=== PATIENT | male | born 1940 | race Caucasian/White ===

== ENCOUNTER 2016-11-19 14:47 | Outpatient (RCR) | payer MEDICARE, OTHER ==
--- OUTSIDE RECORDS SUMMARY | 2016-08-27 14:17 | XMS REPORT | Continuity of Care Document ---
Author Author [facility] Organization [facility] Address Unknown Phone Unavailable Care Team Providers Care Postmaster Name Role Phone LAILA CULLEN MD PCP Insurance Providers Payer Name Policy Number Subscriber Name Relationship [employer] [id number] Pedro Luis Armas 16 Self / Same As Patient [facility] Insurance [id number] Pedro Luis Armas 16 Self / Same As Patient Problems No known problems or medical conditions. Medications No known medications. Social History Social History Problem Response Recorded Date/Time Recent Foreign Travel No 10/26/2014 10:55am Hospital Discharge Instructions No hospital discharge instructions. Plan of Care No plan of care. Functional Status No functional status results. Allergies, Adverse Reactions, Alerts No known allergies. Immunizations No immunization records. Vital Signs No known vital signs results. Results No known relevant diagnostic tests, laboratory data and/or discharge summary. Procedures No known history of procedures. Encounters Encounter Location Date/Time Discharged Recurring [facility] 12/24/14 9:12am
[2016-08-27 14:45] LABS: BASOPHILS % (AUTO) 1 % (0-10); EOSINOPHILS # (AUTO) 0.4 10^3/uL (0.0-0.3); EOSINOPHILS % (AUTO) 6 % (0-10); LYMPHOCYTES # (AUTO) 0.7 X 10^3 (1.0-4.0); LYMPHOCYTES % (AUTO) 11 % (12-44); MEAN CORPUSCULAR HEMOGLOBIN 33 PG (25-34); MEAN CORPUSCULAR HGB CONC 34 G/DL (32-36); MEAN CORPUSCULAR VOLUME 96 FL (80-99); MEAN PLATELET VOLUME 8.4 FL (7.4-10.4); MONOCYTES # (AUTO) 0.7 X 10^3 (0.0-1.0); MONOCYTES % (AUTO) 11 % (0-12); NEUTROPHILS # (AUTO) 4.5 X 10^3 (1.8-7.8); NEUTROPHILS % (AUTO) 71 % (42-75); PLATELET COUNT 250 10^3/uL (130-400); RED BLOOD COUNT 3.53 10^6/uL (4.35-5.85); RED CELL DISTRIBUTION WIDTH 13.2 % (10.0-14.5); WHITE BLOOD COUNT 6.4 10^3/uL (4.3-11.0)
[2016-08-27 15:27] LABS: ALBUMIN 3.7 G/DL (3.2-4.5); BILIRUBIN,TOTAL 0.2 MG/DL (0.1-1.0); CALCIUM 9.2 MG/DL (8.5-10.1); CREATININE SERUM 2.32 MG/DL (0.60-1.30); POTASSIUM 4.1 MMOL/L (3.6-5.0); TOTAL PROTEIN 6.6 G/DL (6.4-8.2)
[~2016-11-19 14:47] MED LIST: DENOSUMAB 120 MG/1.7 ML (XGEVA) SQ SCH; LEUPROLIDE 22.5 MG SYRIN(ELIGARD) SQ SCH
[2016-11-19 15:02] LABS: BASOPHILS % (AUTO) 0 % (0-10); EOSINOPHILS # (AUTO) 0.4 10^3/uL (0.0-0.3); EOSINOPHILS % (AUTO) 6 % (0-10); LYMPHOCYTES # (AUTO) 0.8 X 10^3 (1.0-4.0); LYMPHOCYTES % (AUTO) 12 % (12-44); MEAN CORPUSCULAR HEMOGLOBIN 32 PG (25-34); MEAN CORPUSCULAR HGB CONC 34 G/DL (32-36); MEAN CORPUSCULAR VOLUME 93 FL (80-99); MEAN PLATELET VOLUME 8.4 FL (7.4-10.4); MONOCYTES # (AUTO) 0.6 X 10^3 (0.0-1.0); MONOCYTES % (AUTO) 9 % (0-12); NEUTROPHILS # (AUTO) 4.8 X 10^3 (1.8-7.8); NEUTROPHILS % (AUTO) 73 % (42-75); PLATELET COUNT 262 10^3/uL (130-400); RED BLOOD COUNT 3.74 10^6/uL (4.35-5.85); RED CELL DISTRIBUTION WIDTH 13.4 % (10.0-14.5); WHITE BLOOD COUNT 6.6 10^3/uL (4.3-11.0)
[2016-11-19 15:25] LABS: ALBUMIN 3.8 G/DL (3.2-4.5); BILIRUBIN,TOTAL 0.3 MG/DL (0.1-1.0); CALCIUM 9.5 MG/DL (8.5-10.1); CREATININE SERUM 2.24 MG/DL (0.60-1.30); POTASSIUM 4.6 MMOL/L (3.6-5.0); TOTAL PROTEIN 6.9 G/DL (6.4-8.2)
== END 2016-11-25 | disposition home or self-care (01) ==
LOC: ONC 14:47
PROVIDERS: ATTEND Internal Medicine Hematology & Oncology
DX: C61 Malignant neoplasm of prostate (principal); C79.51 Secondary malignant neoplasm of bone; I25.10 Atherosclerotic heart disease of native coronary artery without angina pectoris; E11.22 Type 2 diabetes mellitus with diabetic chronic kidney disease; N18.3 Chronic kidney disease, stage 3 (moderate); Z95.1 Presence of aortocoronary bypass graft; Z87.891 Personal history of nicotine dependence; Z79.899 Other long term (current) drug therapy
CPT/HCPCS: 36415; 80053; 84153; 85025; 96372; 96402; 99213; 99214

== ENCOUNTER 2017-02-17 14:40 | Outpatient (RCR) | payer MEDICARE, OTHER ==
[2017-02-17 14:58] LABS: BASOPHILS % (AUTO) 0 % (0-10); EOSINOPHILS # (AUTO) 0.2 10^3/uL (0.0-0.3); EOSINOPHILS % (AUTO) 4 % (0-10); LYMPHOCYTES # (AUTO) 0.7 X 10^3 (1.0-4.0); LYMPHOCYTES % (AUTO) 13 % (12-44); MEAN CORPUSCULAR HEMOGLOBIN 33 PG (25-34); MEAN CORPUSCULAR HGB CONC 34 G/DL (32-36); MEAN CORPUSCULAR VOLUME 98 FL (80-99); MEAN PLATELET VOLUME 9.1 FL (7.4-10.4); MONOCYTES # (AUTO) 0.4 X 10^3 (0.0-1.0); MONOCYTES % (AUTO) 7 % (0-12); NEUTROPHILS # (AUTO) 4.2 X 10^3 (1.8-7.8); NEUTROPHILS % (AUTO) 76 % (42-75); PLATELET COUNT 201 10^3/uL (130-400); RED BLOOD COUNT 3.57 10^6/uL (4.35-5.85); WHITE BLOOD COUNT 5.6 10^3/uL (4.3-11.0)
[2017-02-17 15:25] LABS: ALANINE AMINOTRANSFERASE < 6 U/L (0-55); ALBUMIN 3.4 G/DL (3.2-4.5); ANION GAP 7 MMOL/L (5-14); ASPARTATE AMINO TRANSFERASE 15 U/L (5-34); BILIRUBIN,TOTAL 0.4 MG/DL (0.1-1.0); BLOOD UREA NITROGEN 38 MG/DL (7-18); BUN/CREATININE RATIO 16; CALCIUM 8.5 MG/DL (8.5-10.1); CARBON DIOXIDE 23 MMOL/L (21-32); CHLORIDE 113 MMOL/L (98-107); CREATININE SERUM 2.32 MG/DL (0.60-1.30); GFR ESTIMATED 27; GLUCOSE 127 MG/DL (70-105); POTASSIUM 4.6 MMOL/L (3.6-5.0); SODIUM 143 MMOL/L (135-145); TOTAL PROTEIN 6.2 G/DL (6.4-8.2)
[2017-02-17] MEDS ORDERED: LEUPROLIDE 22.5 MG SYRIN(ELIGARD) SQ SCH (16:00)
== END 2017-05-18 | disposition home or self-care (01) ==
LOC: ONC 14:40
PROVIDERS: ATTEND Internal Medicine Hematology & Oncology
DX: C61 Malignant neoplasm of prostate (principal); C79.51 Secondary malignant neoplasm of bone; I25.10 Atherosclerotic heart disease of native coronary artery without angina pectoris; E11.22 Type 2 diabetes mellitus with diabetic chronic kidney disease; N18.3 Chronic kidney disease, stage 3 (moderate); Z95.1 Presence of aortocoronary bypass graft; Z87.891 Personal history of nicotine dependence; Z79.899 Other long term (current) drug therapy
CPT/HCPCS: 36415; 80053; 84153; 85025; 96402; 99213

== ENCOUNTER 2017-05-25 09:28 | Outpatient (RCR) | payer MEDICARE, OTHER ==
[2017-05-24 14:09] LABS: BASOPHILS % (AUTO) 0 % (0-10); EOSINOPHILS # (AUTO) 0.5 10^3/uL (0.0-0.3); EOSINOPHILS % (AUTO) 5 % (0-10); LYMPHOCYTES # (AUTO) 0.9 X 10^3 (1.0-4.0); LYMPHOCYTES % (AUTO) 10 % (12-44); MEAN CORPUSCULAR HEMOGLOBIN 31 PG (25-34); MEAN CORPUSCULAR HGB CONC 32 G/DL (32-36); MEAN CORPUSCULAR VOLUME 97 FL (80-99); MONOCYTES # (AUTO) 0.8 X 10^3 (0.0-1.0); MONOCYTES % (AUTO) 9 % (0-12); NEUTROPHILS # (AUTO) 6.8 X 10^3 (1.8-7.8); NEUTROPHILS % (AUTO) 75 % (42-75); PLATELET COUNT 454 10^3/uL (130-400); RED BLOOD COUNT 2.46 10^6/uL (4.35-5.85); RED CELL DISTRIBUTION WIDTH 13.1 % (10.0-14.5)
[2017-05-24 15:01] LABS: ALBUMIN 2.8 GM/DL (3.2-4.5); BILIRUBIN,TOTAL 0.2 MG/DL (0.1-1.0); CALCIUM 8.8 MG/DL (8.5-10.1); CREATININE SERUM 2.77 MG/DL (0.60-1.30); POTASSIUM 4.3 MMOL/L (3.6-5.0); TOTAL PROTEIN 6.7 GM/DL (6.4-8.2)
[2017-05-25] MEDS ORDERED: NS IV 500 ML (CANCER CENTER) 500 ML ONE (09:40)
[2017-05-25] MEDS ORDERED: ACETAMINOPHEN 500 MG TAB (TYLENOL) CANCER CTR ONE (09:41)
== END 2017-07-17 | disposition home or self-care (01) ==
LOC: ONC 09:28
PROVIDERS: ATTEND Internal Medicine Hematology & Oncology
DX: C61 Malignant neoplasm of prostate (principal); C79.51 Secondary malignant neoplasm of bone; I25.10 Atherosclerotic heart disease of native coronary artery without angina pectoris; E11.22 Type 2 diabetes mellitus with diabetic chronic kidney disease; N18.3 Chronic kidney disease, stage 3 (moderate); Z95.1 Presence of aortocoronary bypass graft; Z87.891 Personal history of nicotine dependence; Z79.899 Other long term (current) drug therapy
CPT/HCPCS: 36415; 36430; 80053; 84153; 85025; 86850; 86900; 86901; 86920; 96402

== ENCOUNTER 2017-10-25 13:39 | Outpatient (RCR) | payer MEDICARE, OTHER ==
[2017-08-02 14:33] LABS: BASOPHILS % (AUTO) 1 % (0-10); EOSINOPHILS # (AUTO) 0.4 10^3/uL (0.0-0.3); EOSINOPHILS % (AUTO) 8 % (0-10); HEMATOCRIT 31 % (40-54); HEMOGLOBIN 10.1 G/DL (13.3-17.7); LYMPHOCYTES # (AUTO) 0.8 X 10^3 (1.0-4.0); LYMPHOCYTES % (AUTO) 16 % (12-44); MEAN CORPUSCULAR HEMOGLOBIN 32 PG (25-34); MEAN CORPUSCULAR HGB CONC 33 G/DL (32-36); MEAN CORPUSCULAR VOLUME 97 FL (80-99); MEAN PLATELET VOLUME 9.2 FL (7.4-10.4); MONOCYTES # (AUTO) 0.5 X 10^3 (0.0-1.0); MONOCYTES % (AUTO) 9 % (0-12); NEUTROPHILS # (AUTO) 3.5 X 10^3 (1.8-7.8); NEUTROPHILS % (AUTO) 67 % (42-75); PLATELET COUNT 212 10^3/uL (130-400); RED BLOOD COUNT 3.16 10^6/uL (4.35-5.85); RED CELL DISTRIBUTION WIDTH 15.5 % (10.0-14.5); WHITE BLOOD COUNT 5.2 10^3/uL (4.3-11.0)
[2017-08-02 15:03] LABS: ALBUMIN 3.7 GM/DL (3.2-4.5); BILIRUBIN,TOTAL 0.4 MG/DL (0.1-1.0); CALCIUM 9.9 MG/DL (8.5-10.1); CREATININE SERUM 3.58 MG/DL (0.60-1.30); POTASSIUM 4.2 MMOL/L (3.6-5.0); TOTAL PROTEIN 7.2 GM/DL (6.4-8.2)
[2017-10-25 14:04] LABS: HEMATOCRIT 35 % (40-54); HEMOGLOBIN 11.1 G/DL (13.3-17.7); MEAN CORPUSCULAR HEMOGLOBIN 33 PG (25-34); MEAN CORPUSCULAR HGB CONC 32 G/DL (32-36); MEAN CORPUSCULAR VOLUME 104 FL (80-99); PLATELET COUNT 202 10^3/uL (130-400); RED BLOOD COUNT 3.32 10^6/uL (4.35-5.85); RED CELL DISTRIBUTION WIDTH 13.7 % (10.0-14.5); WHITE BLOOD COUNT 6.4 10^3/uL (4.3-11.0)
[2017-10-25 14:05] LABS: BASOPHILS % (AUTO) 1 % (0-10); EOSINOPHILS # (AUTO) 0.5 10^3/uL (0.0-0.3); EOSINOPHILS % (AUTO) 8 % (0-10); LYMPHOCYTES # (AUTO) 0.8 X 10^3 (1.0-4.0); LYMPHOCYTES % (AUTO) 13 % (12-44); MEAN PLATELET VOLUME 9.5 FL (7.4-10.4); MONOCYTES # (AUTO) 0.7 X 10^3 (0.0-1.0); MONOCYTES % (AUTO) 11 % (0-12); NEUTROPHILS # (AUTO) 4.3 X 10^3 (1.8-7.8); NEUTROPHILS % (AUTO) 68 % (42-75)
[2017-10-25 14:15] LABS: ALBUMIN 3.7 GM/DL (3.2-4.5); BILIRUBIN,TOTAL 0.4 MG/DL (0.1-1.0); CALCIUM 9.3 MG/DL (8.5-10.1); CREATININE SERUM 2.77 MG/DL (0.60-1.30); POTASSIUM 4.6 MMOL/L (3.6-5.0); TOTAL PROTEIN 6.9 GM/DL (6.4-8.2)
== END 2017-10-31 | disposition home or self-care (01) ==
LOC: ONC 13:39
PROVIDERS: ATTEND Internal Medicine Hematology & Oncology
DX: C61 Malignant neoplasm of prostate (principal); C79.51 Secondary malignant neoplasm of bone; I25.10 Atherosclerotic heart disease of native coronary artery without angina pectoris; E11.22 Type 2 diabetes mellitus with diabetic chronic kidney disease; N18.3 Chronic kidney disease, stage 3 (moderate); Z95.1 Presence of aortocoronary bypass graft; Z87.891 Personal history of nicotine dependence; Z79.899 Other long term (current) drug therapy
CPT/HCPCS: 36415; 80053; 84153; 85025; 96372; 96402

== ENCOUNTER → 2018-02-03 | Outpatient (CLI) | payer MEDICARE, OTHER ==
[~2018-02-03] MED LIST changes: +CATHETER FLUSH 10 ML SYR IV PRN; -DENOSUMAB 120 MG/1.7 ML (XGEVA) SQ SCH; -LEUPROLIDE 22.5 MG SYRIN(ELIGARD) SQ SCH
--- NOTE | 2018-02-03 10:49 | Diagnostic Imaging Report ---
PROCEDURE: CT abdomen and pelvis without contrast. TECHNIQUE: Multiple contiguous axial images were obtained through the abdomen and pelvis without the use of intravenous contrast. 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 COMPARISON: Comparison is made with prior CT from 08/27/2015. FINDINGS: Imaging to the lung bases does show a noncalcified nodule in the left lower lobe approximately 10 mm in size, stable when compared with prior exam. Small low-density left lobe of liver appears stable and likely cysts. No other liver mass is identified. Gallbladder does contain small stones. The pancreas and spleen are unremarkable. No adrenal mass is detected. Bilateral renal calcifications are again noted. Aorta is heavily calcified but nonaneurysmal. The small and large bowel loops are normal caliber. There is no ascites. The bladder is unremarkable. There are fiducial markers in the prostate. There appear to be bilateral fat-containing inguinal hernias. Multiple sclerotic lesions in the spine as well as bilateral ribs and pelvis are again noted consistent with osseous metastatic disease. IMPRESSION: Stable CT of the abdomen and pelvis when compared with prior exam from 08/27/2015. Cholelithiasis is again noted. There is skeletal metastases again noted. No new abnormality is seen. Dictated by: Dictated on workstation # [id number]
--- NOTE | 2018-02-03 15:45 | Diagnostic Imaging Report ---
Indication: Prostate cancer. Technique: The patient received 25.8 mCi intravenous technetium 99 MDP, after 3 hours whole body planar performed. Study compared to 08/15/2015 and correlated with an abdominal pelvic CT of the same date. Findings: Sternomanubrial uptake unchanged. Foci of abnormal accumulation of radiopharmacy in the predominately mid to lower thoracic spine and multilevel lumbar spine scintigraphically unchanged from prior and correlate with areas of sclerosis present on CT. Many of the sclerotic lesions evident on CT are not scintigraphically appreciable and may be chronic and healed. There are multiple bilateral rib lesions which are less conspicuous than on prior. Left-sided occipital or craniofacial uptake present on prior resolved. Impression: Resolution of craniofacial uptake, improvements in rib findings, spinal and sternomanubrial disease not substantially changed and we acknowledge that the sclerotic changes are much more conspicuous on CT with many of the lesions showing no perceptible uptake, likely chronic and healed. There has been no adverse development from prior. Dictated by: Dictated on workstation # [id number]
== END ==
LOC: RAD 09:53
PROVIDERS: ATTEND Internal Medicine Hematology & Oncology
DX: C61 Malignant neoplasm of prostate (principal); C79.51 Secondary malignant neoplasm of bone; K80.20 Calculus of gallbladder without cholecystitis without obstruction
CPT/HCPCS: 74176; 78306

== ENCOUNTER 2018-04-14 13:58 | Outpatient (RCR) | payer MEDICARE, OTHER ==
[2018-01-26 09:12] LABS: BASOPHILS % (AUTO) 1 % (0-10); EOSINOPHILS # (AUTO) 0.4 10^3/uL (0.0-0.3); EOSINOPHILS % (AUTO) 9 % (0-10); HEMATOCRIT 32 % (40-54); HEMOGLOBIN 11.1 G/DL (13.3-17.7); LYMPHOCYTES # (AUTO) 0.9 X 10^3 (1.0-4.0); LYMPHOCYTES % (AUTO) 20 % (12-44); MEAN CORPUSCULAR HEMOGLOBIN 34 PG (25-34); MEAN CORPUSCULAR HGB CONC 35 G/DL (32-36); MEAN CORPUSCULAR VOLUME 98 FL (80-99); MEAN PLATELET VOLUME 8.9 FL (7.4-10.4); MONOCYTES # (AUTO) 0.4 X 10^3 (0.0-1.0); MONOCYTES % (AUTO) 10 % (0-12); NEUTROPHILS # (AUTO) 2.6 X 10^3 (1.8-7.8); NEUTROPHILS % (AUTO) 60 % (42-75); PLATELET COUNT 211 10^3/uL (130-400); RED BLOOD COUNT 3.25 10^6/uL (4.35-5.85); RED CELL DISTRIBUTION WIDTH 12.5 % (10.0-14.5); WHITE BLOOD COUNT 4.3 10^3/uL (4.3-11.0)
[2018-01-26 09:39] LABS: ALBUMIN 3.9 GM/DL (3.2-4.5); BILIRUBIN,TOTAL 0.5 MG/DL (0.1-1.0); CALCIUM 8.9 MG/DL (8.5-10.1); CREATININE SERUM 3.07 MG/DL (0.60-1.30); POTASSIUM 4.8 MMOL/L (3.6-5.0); TOTAL PROTEIN 6.8 GM/DL (6.4-8.2)
[2018-03-07 09:16] LABS: BASOPHILS % (AUTO) 0 % (0-10); EOSINOPHILS # (AUTO) 0.3 10^3/uL (0.0-0.3); EOSINOPHILS % (AUTO) 6 % (0-10); HEMATOCRIT 31 % (40-54); HEMOGLOBIN 10.7 G/DL (13.3-17.7); LYMPHOCYTES # (AUTO) 0.7 X 10^3 (1.0-4.0); LYMPHOCYTES % (AUTO) 13 % (12-44); MEAN CORPUSCULAR HEMOGLOBIN 34 PG (25-34); MEAN CORPUSCULAR HGB CONC 35 G/DL (32-36); MEAN CORPUSCULAR VOLUME 97 FL (80-99); MEAN PLATELET VOLUME 9.2 FL (7.4-10.4); MONOCYTES # (AUTO) 0.5 X 10^3 (0.0-1.0); MONOCYTES % (AUTO) 10 % (0-12); NEUTROPHILS # (AUTO) 3.6 X 10^3 (1.8-7.8); NEUTROPHILS % (AUTO) 71 % (42-75); PLATELET COUNT 228 10^3/uL (130-400); RED BLOOD COUNT 3.16 10^6/uL (4.35-5.85); RED CELL DISTRIBUTION WIDTH 12.8 % (10.0-14.5)
[2018-03-07 09:34] LABS: BILIRUBIN,TOTAL 0.4 MG/DL (0.1-1.0); CALCIUM 8.5 MG/DL (8.5-10.1); CREATININE SERUM 3.17 MG/DL (0.60-1.30); POTASSIUM 4.3 MMOL/L (3.6-5.0); TOTAL PROTEIN 6.8 GM/DL (6.4-8.2)
[2018-04-11 08:51] LABS: BASOPHILS % (AUTO) 1 % (0-10); EOSINOPHILS # (AUTO) 0.3 10^3/uL (0.0-0.3); EOSINOPHILS % (AUTO) 7 % (0-10); HEMATOCRIT 31 % (40-54); HEMOGLOBIN 10.7 G/DL (13.3-17.7); LYMPHOCYTES # (AUTO) 0.8 X 10^3 (1.0-4.0); LYMPHOCYTES % (AUTO) 16 % (12-44); MEAN CORPUSCULAR HEMOGLOBIN 34 PG (25-34); MEAN CORPUSCULAR HGB CONC 35 G/DL (32-36); MEAN CORPUSCULAR VOLUME 97 FL (80-99); MEAN PLATELET VOLUME 9.8 FL (7.4-10.4); MONOCYTES # (AUTO) 0.5 X 10^3 (0.0-1.0); MONOCYTES % (AUTO) 10 % (0-12); NEUTROPHILS # (AUTO) 3.3 X 10^3 (1.8-7.8); NEUTROPHILS % (AUTO) 68 % (42-75); PLATELET COUNT 220 10^3/uL (130-400); RED BLOOD COUNT 3.19 10^6/uL (4.35-5.85); RED CELL DISTRIBUTION WIDTH 13.5 % (10.0-14.5); WHITE BLOOD COUNT 4.9 10^3/uL (4.3-11.0)
[2018-04-11 09:11] LABS: ALBUMIN 3.7 GM/DL (3.2-4.5); BILIRUBIN,TOTAL 0.4 MG/DL (0.1-1.0); CALCIUM 8.9 MG/DL (8.5-10.1); CREATININE SERUM 2.69 MG/DL (0.60-1.30); POTASSIUM 5.1 MMOL/L (3.6-5.0); TOTAL PROTEIN 6.5 GM/DL (6.4-8.2)
[~2018-04-14 13:58] MED LIST changes: -CATHETER FLUSH 10 ML SYR IV PRN; +DENOSUMAB 120 MG/1.7 ML (XGEVA) SQ SCH; +LEUPROLIDE 22.5 MG SYRIN(ELIGARD) SQ SCH
== END 2018-04-26 | disposition home or self-care (01) ==
LOC: ONC 13:58
PROVIDERS: ATTEND Internal Medicine Hematology & Oncology
DX: C61 Malignant neoplasm of prostate (principal); C79.51 Secondary malignant neoplasm of bone; D64.9 Anemia, unspecified; I25.10 Atherosclerotic heart disease of native coronary artery without angina pectoris; E11.22 Type 2 diabetes mellitus with diabetic chronic kidney disease; N18.3 Chronic kidney disease, stage 3 (moderate); Z95.1 Presence of aortocoronary bypass graft; Z87.891 Personal history of nicotine dependence; Z79.899 Other long term (current) drug therapy
CPT/HCPCS: 36415; 80053; 82728; 84153; 85025; 96372; 96402; 99213

== ENCOUNTER 2018-07-07 13:15 | Outpatient (RCR) | payer MEDICARE, OTHER ==
[2018-07-05 09:34] LABS: BASOPHILS % (AUTO) 1 % (0-10); EOSINOPHILS # (AUTO) 0.3 10^3/uL (0.0-0.3); EOSINOPHILS % (AUTO) 7 % (0-10); HEMATOCRIT 32 % (40-54); HEMOGLOBIN 11.3 G/DL (13.3-17.7); LYMPHOCYTES # (AUTO) 0.7 X 10^3 (1.0-4.0); LYMPHOCYTES % (AUTO) 14 % (12-44); MEAN CORPUSCULAR HEMOGLOBIN 34 PG (25-34); MEAN CORPUSCULAR HGB CONC 35 G/DL (32-36); MEAN CORPUSCULAR VOLUME 96 FL (80-99); MEAN PLATELET VOLUME 9.3 FL (7.4-10.4); MONOCYTES # (AUTO) 0.4 X 10^3 (0.0-1.0); MONOCYTES % (AUTO) 9 % (0-12); NEUTROPHILS # (AUTO) 3.3 X 10^3 (1.8-7.8); NEUTROPHILS % (AUTO) 69 % (42-75); PLATELET COUNT 229 10^3/uL (130-400); RED BLOOD COUNT 3.37 10^6/uL (4.35-5.85); RED CELL DISTRIBUTION WIDTH 13.2 % (10.0-14.5); WHITE BLOOD COUNT 4.8 10^3/uL (4.3-11.0)
[2018-07-05 09:54] LABS: BILIRUBIN,TOTAL 0.4 MG/DL (0.1-1.0); CALCIUM 9.6 MG/DL (8.5-10.1); CREATININE SERUM 3.19 MG/DL (0.60-1.30)
[~2018-07-07 13:15] MED LIST changes: +CEFU500T63 PO; +HYDR-4226 PO; +ONDA8TAB9 PO
[2018-07-27 14:00] LABS: BASOPHILS % (AUTO) 0 % (0-10); EOSINOPHILS # (AUTO) 0.3 10^3/uL (0.0-0.3); EOSINOPHILS % (AUTO) 5 % (0-10); HEMATOCRIT 31 % (40-54); HEMOGLOBIN 10.7 G/DL (13.3-17.7); LYMPHOCYTES # (AUTO) 0.9 X 10^3 (1.0-4.0); LYMPHOCYTES % (AUTO) 15 % (12-44); MEAN CORPUSCULAR HEMOGLOBIN 33 PG (25-34); MEAN CORPUSCULAR HGB CONC 35 G/DL (32-36); MEAN CORPUSCULAR VOLUME 94 FL (80-99); MEAN PLATELET VOLUME 8.9 FL (7.4-10.4); MONOCYTES # (AUTO) 0.5 X 10^3 (0.0-1.0); MONOCYTES % (AUTO) 9 % (0-12); NEUTROPHILS % (AUTO) 71 % (42-75); PLATELET COUNT 216 10^3/uL (130-400); RED BLOOD COUNT 3.24 10^6/uL (4.35-5.85); RED CELL DISTRIBUTION WIDTH 13.3 % (10.0-14.5); WHITE BLOOD COUNT 5.7 10^3/uL (4.3-11.0)
[2018-07-27 14:22] LABS: ALBUMIN 3.9 GM/DL (3.2-4.5); BILIRUBIN,TOTAL 0.3 MG/DL (0.1-1.0); CALCIUM 8.8 MG/DL (8.5-10.1); CREATININE SERUM 2.71 MG/DL (0.60-1.30); POTASSIUM 4.4 MMOL/L (3.6-5.0); TOTAL PROTEIN 6.7 GM/DL (6.4-8.2)
== END 2018-07-27 13:42 | disposition home or self-care (01) ==
LOC: ONC 13:15
PROVIDERS: ATTEND Internal Medicine Hematology & Oncology
DX: C61 Malignant neoplasm of prostate (principal); C79.51 Secondary malignant neoplasm of bone; D64.9 Anemia, unspecified; I25.10 Atherosclerotic heart disease of native coronary artery without angina pectoris; E11.22 Type 2 diabetes mellitus with diabetic chronic kidney disease; N18.4 Chronic kidney disease, stage 4 (severe); F03.90 Unspecified dementia, unspecified severity, without behavioral disturbance, psychotic disturbance, mood disturbance, and anxiety; R07.89 Other chest pain; M25.511 Pain in right shoulder; M62.81 Muscle weakness (generalized); Z95.1 Presence of aortocoronary bypass graft; Z87.891 Personal history of nicotine dependence; Z79.899 Other long term (current) drug therapy
CPT/HCPCS: 36415; 80053; 84153; 85025; 96372; 96402; 99213

== ENCOUNTER 2018-09-29 15:14 | Outpatient (RCR) | payer MEDICARE, OTHER ==
[2018-09-26 08:44] LABS: BASOPHILS % (AUTO) 1 % (0-10); EOSINOPHILS # (AUTO) 0.6 10^3/uL (0.0-0.3); EOSINOPHILS % (AUTO) 13 % (0-10); HEMATOCRIT 32 % (40-54); HEMOGLOBIN 10.8 G/DL (13.3-17.7); LYMPHOCYTES % (AUTO) 24 % (12-44); MEAN CORPUSCULAR HEMOGLOBIN 33 PG (25-34); MEAN CORPUSCULAR HGB CONC 34 G/DL (32-36); MEAN CORPUSCULAR VOLUME 96 FL (80-99); MEAN PLATELET VOLUME 9.2 FL (7.4-10.4); MONOCYTES # (AUTO) 0.5 X 10^3 (0.0-1.0); MONOCYTES % (AUTO) 11 % (0-12); NEUTROPHILS # (AUTO) 2.3 X 10^3 (1.8-7.8); NEUTROPHILS % (AUTO) 52 % (42-75); PLATELET COUNT 275 10^3/uL (130-400); RED BLOOD COUNT 3.31 10^6/uL (4.35-5.85); RED CELL DISTRIBUTION WIDTH 13.8 % (10.0-14.5); WHITE BLOOD COUNT 4.4 10^3/uL (4.3-11.0)
[2018-09-26 09:04] LABS: BILIRUBIN,TOTAL 0.3 MG/DL (0.1-1.0); CALCIUM 8.8 MG/DL (8.5-10.1); CREATININE SERUM 3.47 MG/DL (0.60-1.30); POTASSIUM 5.2 MMOL/L (3.6-5.0); TOTAL PROTEIN 7.3 GM/DL (6.4-8.2)
== END 2018-10-25 | disposition home or self-care (01) ==
LOC: ONC 15:14
PROVIDERS: ATTEND Internal Medicine Hematology & Oncology
DX: C61 Malignant neoplasm of prostate (principal); C79.51 Secondary malignant neoplasm of bone; Z79.899 Other long term (current) drug therapy
CPT/HCPCS: 36415; 80053; 84153; 85025; 96372; 96402; 99213

== ENCOUNTER 2018-12-21 12:54 | Outpatient (RCR) | payer MEDICARE, OTHER ==
[2018-12-12 09:15] LABS: BASOPHILS % (AUTO) 1 % (0-10); EOSINOPHILS # (AUTO) 0.5 10^3/uL (0.0-0.3); EOSINOPHILS % (AUTO) 11 % (0-10); HEMATOCRIT 29 % (40-54); LYMPHOCYTES # (AUTO) 0.7 X 10^3 (1.0-4.0); LYMPHOCYTES % (AUTO) 17 % (12-44); MEAN CORPUSCULAR HEMOGLOBIN 33 PG (25-34); MEAN CORPUSCULAR HGB CONC 34 G/DL (32-36); MEAN CORPUSCULAR VOLUME 97 FL (80-99); MEAN PLATELET VOLUME 8.9 FL (7.4-10.4); MONOCYTES # (AUTO) 0.4 X 10^3 (0.0-1.0); MONOCYTES % (AUTO) 10 % (0-12); NEUTROPHILS # (AUTO) 2.7 X 10^3 (1.8-7.8); NEUTROPHILS % (AUTO) 62 % (42-75); PLATELET COUNT 261 10^3/uL (130-400); RED CELL DISTRIBUTION WIDTH 13.5 % (10.0-14.5); WHITE BLOOD COUNT 4.4 10^3/uL (4.3-11.0)
[2018-12-12 09:32] LABS: ALBUMIN 3.6 GM/DL (3.2-4.5); BILIRUBIN,TOTAL 0.3 MG/DL (0.1-1.0); CALCIUM 8.6 MG/DL (8.5-10.1); CREATININE SERUM 3.03 MG/DL (0.60-1.30); POTASSIUM 4.3 MMOL/L (3.6-5.0); TOTAL PROTEIN 6.7 GM/DL (6.4-8.2)
[~2018-12-21 12:54] MED LIST changes: -DENOSUMAB 120 MG/1.7 ML (XGEVA) SQ SCH; -LEUPROLIDE 22.5 MG SYRIN(ELIGARD) SQ SCH
[2018-12-21] MEDS ORDERED: LEUPROLIDE 22.5 MG SYRIN(ELIGARD) SQ ONE (13:53)
[2018-12-21] MEDS ORDERED: DENOSUMAB 120 MG/1.7 ML (XGEVA) SQ ONE (13:53)
== END 2019-03-12 | disposition home or self-care (01) ==
LOC: ONC 12:54
PROVIDERS: ATTEND Internal Medicine Hematology & Oncology
DX: C61 Malignant neoplasm of prostate (principal); C79.51 Secondary malignant neoplasm of bone; D64.9 Anemia, unspecified; F03.90 Unspecified dementia, unspecified severity, without behavioral disturbance, psychotic disturbance, mood disturbance, and anxiety; G47.00 Insomnia, unspecified; M62.81 Muscle weakness (generalized); R25.3 Fasciculation; E11.22 Type 2 diabetes mellitus with diabetic chronic kidney disease; N18.4 Chronic kidney disease, stage 4 (severe); E78.00 Pure hypercholesterolemia, unspecified; I25.10 Atherosclerotic heart disease of native coronary artery without angina pectoris; Z79.899 Other long term (current) drug therapy
CPT/HCPCS: 36415; 80053; 84153; 85025; 96372; 96402

== ENCOUNTER → 2019-06-05 | Outpatient (CLI) | payer MEDICARE, OTHER ==
--- NOTE | 2019-06-05 14:15 | Diagnostic Imaging Report ---
INDICATION: Back pain. Patient's history of prostate carcinoma with bone metastases. Time of exam 10:52 AM Curvature and alignment is normal. Marked osteosclerosis at the L3 and L5 level is noted similar to CT study from one year earlier and consistent with osteoblastic metastases. Marked osteosclerosis of the spinous process of L5 is also seen. Sclerosis involving the lower sacrum is also noted, similar to prior exam. The vertebral body heights are maintained. No acute compression fracture is identified. Disc spaces are fairly well-preserved. Abdominal aorta is heavily calcified. 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 No acute compression fracture is detected. Dictated by: Dictated on workstation # [id number]
== END ==
LOC: RAD 10:40
PROVIDERS: ATTEND Internal Medicine Hematology & Oncology
DX: C61 Malignant neoplasm of prostate (principal); C79.51 Secondary malignant neoplasm of bone
CPT/HCPCS: 72100

== ENCOUNTER 2019-11-23 13:20 | Outpatient (RCR) | payer MEDICARE, OTHER ==
[2019-08-28 08:33] LABS: BASOPHILS % (AUTO) 1 % (0-10); EOSINOPHILS # (AUTO) 0.3 10^3/uL (0.0-0.3); EOSINOPHILS % (AUTO) 10 % (0-10); HEMATOCRIT 30 % (40-54); HEMOGLOBIN 10.3 G/DL (13.3-17.7); LYMPHOCYTES # (AUTO) 0.6 X 10^3 (1.0-4.0); LYMPHOCYTES % (AUTO) 19 % (12-44); MEAN CORPUSCULAR HEMOGLOBIN 33 PG (25-34); MEAN CORPUSCULAR HGB CONC 34 G/DL (32-36); MEAN CORPUSCULAR VOLUME 96 FL (80-99); MEAN PLATELET VOLUME 8.6 FL (7.4-10.4); MONOCYTES # (AUTO) 0.3 X 10^3 (0.0-1.0); MONOCYTES % (AUTO) 10 % (0-12); NEUTROPHILS # (AUTO) 1.8 X 10^3 (1.8-7.8); NEUTROPHILS % (AUTO) 61 % (42-75); PLATELET COUNT 278 10^3/uL (130-400); RED CELL DISTRIBUTION WIDTH 13.7 % (10.0-14.5)
[2019-08-28 08:50] LABS: ALBUMIN 3.4 GM/DL (3.2-4.5); BILIRUBIN,TOTAL 0.3 MG/DL (0.1-1.0); CALCIUM 8.4 MG/DL (8.5-10.1); CREATININE SERUM 3.05 MG/DL (0.60-1.30); POTASSIUM 4.5 MMOL/L (3.6-5.0); TOTAL PROTEIN 6.4 GM/DL (6.4-8.2)
[2019-11-20 08:43] LABS: BASOPHILS % (AUTO) 0 % (0-10); EOSINOPHILS # (AUTO) 0.3 10^3/uL (0.0-0.3); EOSINOPHILS % (AUTO) 6 % (0-10); HEMATOCRIT 28 % (40-54); HEMOGLOBIN 9.8 G/DL (13.3-17.7); LYMPHOCYTES # (AUTO) 0.7 X 10^3 (1.0-4.0); LYMPHOCYTES % (AUTO) 16 % (12-44); MEAN CORPUSCULAR HEMOGLOBIN 34 PG (25-34); MEAN CORPUSCULAR HGB CONC 35 G/DL (32-36); MEAN CORPUSCULAR VOLUME 98 FL (80-99); MEAN PLATELET VOLUME 9.3 FL (7.4-10.4); MONOCYTES # (AUTO) 0.4 X 10^3 (0.0-1.0); MONOCYTES % (AUTO) 8 % (0-12); NEUTROPHILS # (AUTO) 3.2 X 10^3 (1.8-7.8); NEUTROPHILS % (AUTO) 70 % (42-75); PLATELET COUNT 245 10^3/uL (130-400); WHITE BLOOD COUNT 4.6 10^3/uL (4.3-11.0)
[2019-11-20 09:03] LABS: ALBUMIN 3.4 GM/DL (3.2-4.5); BILIRUBIN,TOTAL 0.3 MG/DL (0.1-1.0); CALCIUM 8.1 MG/DL (8.5-10.1); CREATININE SERUM 3.47 MG/DL (0.60-1.30); POTASSIUM 4.5 MMOL/L (3.6-5.0); TOTAL PROTEIN 6.5 GM/DL (6.4-8.2)
[~2019-11-23 13:20] MED LIST changes: +DENOSUMAB 120 MG/1.7 ML (XGEVA) SQ ONE; +LEUPROLIDE 22.5 MG SYRIN(ELIGARD) SQ ONE
== END 2019-11-26 | disposition home or self-care (01) ==
LOC: ONC 13:20
PROVIDERS: ATTEND Internal Medicine Hematology & Oncology
DX: C61 Malignant neoplasm of prostate (principal); C79.51 Secondary malignant neoplasm of bone; Z79.899 Other long term (current) drug therapy
CPT/HCPCS: 36415; 80053; 84153; 85025; 96372; 96402

== ENCOUNTER → 2019-11-29 | Outpatient (CLI) | payer MEDICARE, OTHER ==
[~2019-11-29] MED LIST changes: -DENOSUMAB 120 MG/1.7 ML (XGEVA) SQ ONE; -LEUPROLIDE 22.5 MG SYRIN(ELIGARD) SQ ONE
--- NOTE | 2019-11-29 10:42 | Diagnostic Imaging Report ---
PROCEDURE: CT head without contrast. TECHNIQUE: Multiple contiguous axial images were obtained through the brain without the use of intravenous contrast. Auto Exposure Controls were utilized during the CT exam to meet ALARA standards for radiation dose reduction. INDICATION: Confusion, dizziness and headache with a history of prostate cancer. COMPARISON: No prior examinations are available for comparison. FINDINGS: There is prominence of the ventricles and sulci. There is no hydrocephalus or cerebral edema. There is no midline shift or mass-effect. There is no intracranial mass, hemorrhage, or extra-axial fluid collection. There is some diffuse decreased attenuation of the periventricular white matter which is nonspecific. The visualized paranasal sinuses and mastoid air cells are clear. There are no regional areas of decreased attenuation appreciated to suggest an acute CVA. IMPRESSION: 1. No acute intracranial process. 2. Age-appropriate atrophy. 3. Decreased attenuation of the periventricular white matter which is nonspecific, however, likely reflects senescent change and/or chronic small vessel ischemic disease. Dictated by: Dictated on workstation # [id number]
== END ==
LOC: RAD 10:11
PROVIDERS: ATTEND Internal Medicine Hematology & Oncology
DX: C61 Malignant neoplasm of prostate (principal); C79.51 Secondary malignant neoplasm of bone; R41.0 Disorientation, unspecified; G31.9 Degenerative disease of nervous system, unspecified
CPT/HCPCS: 70450

== ENCOUNTER 2020-01-20 08:09 | Inpatient (IN) | payer MEDICARE, OTHER ==
[~2020-01-20] VITALS: Ht 187 cm; Wt 89.3 kg
[2020-01-20] MEDS ORDERED: NS IV 1000 ML 1,000 ML IV SCH (08:12)
[2020-01-20] MEDS ORDERED: AZITHROMYCIN INJECTION 500 MG in NS (IVPB) 250 ML IV ONE (08:12)
[2020-01-20] MEDS ORDERED: ACETAMINOPHEN 500 MG TAB (TYLENOL) PO PRN (08:15)
--- OUTSIDE RECORDS SUMMARY | 2020-01-20 08:17 | XMS REPORT | Continuity of Care Document ---
Author Organization Unknown Address Unknown Phone Unavailable Allergies Active Description Code Type Severity Reaction Onset Reported/Identified Relationship to Patient Clinical Status Yes No Known Drug Allergies [id number] Drug Allergy Unknown N/A 08/22/2015 Medications There is no data. 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 09/16/1020 RAMONA ROBERT Ot I25.10 ATHSCL HEART DISEASE OF [place] CORONARY 09/16/1020 RAMONA ROBERT Ot N18.3 CHRONIC KIDNEY DISEASE, STAGE 3 (MODERAT 09/16/1020 RAMONA ROBERT Ot Z79.899 OTHER SKILLED NURSING (CURRENT) DRUG THERAPY 09/16/1020 RAMONA ROBERT Ot Z87.891 PERSONAL HISTORY OF NICOTINE DEPENDENCE 09/16/1020 RAMONA ROBERT Ot Z95.1 PRESENCE OF AORTOCORONARY BYPASS GRAFT 09/16/1341 KENYON SNYDER MD Ot C61 MALIGNANT NEOPLASM OF PROSTATE 09/16/1341 KENYON SNYDER MD, Ot C79.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 09/16/1341 KENYON SNYDER MD Ot D64.9 ANEMIA, UNSPECIFIED 09/16/1341 KENYON SNYDER MD Ot 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 09/16/1341 KENYON SNYDER MD Ot F03.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 BEHAVIORAL 09/16/1341 KENYON SNYDER MD Ot I25.10 ATHSCL HEART DISEASE OF [place] CORONARY 09/16/1341 KENYON SNYDER MD Ot M25.511 PAIN IN RIGHT SHOULDER 09/16/1341 KENYON SNYDER MD Ot M62.81 MUSCLE WEAKNESS (GENERALIZED) 09/16/1341 KENYON SNYDER MD Ot N18.4 CHRONIC KIDNEY DISEASE, STAGE 4 (SEVERE) 09/16/1341 KENYON SNYDER MD Ot R07.89 OTHER CHEST PAIN 09/16/1341 KENYON SNYDER MD Ot 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 09/16/1341 KENYON SNYDER MD Ot Z87.891 PERSONAL HISTORY OF NICOTINE DEPENDENCE 09/16/1341 KENYON SNYDER MD Ot Z95.1 PRESENCE OF AORTOCORONARY BYPASS GRAFT 09/16/1357 KENYON SNYDER MD Ot C61 MALIGNANT NEOPLASM OF PROSTATE 09/16/1357 KENYON SNYDER MD Ot C79.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 09/16/1357 KENYON SNYDER MD Ot D64.9 ANEMIA, UNSPECIFIED 09/16/1357 KENYON SNYDER MD Ot 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 09/16/1357 KENYON SNYDRE MD Ot I25.10 ATHSCL HEART DISEASE OF [place] CORONARY 09/16/1357 KENYON SNYDER MD Ot N18.3 CHRONIC KIDNEY DISEASE, STAGE 3 (MODERAT 09/16/1357 KENYON SNYDER MD Ot 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 09/16/1357 KENYON SNYDER MD Ot Z87.891 PERSONAL HISTORY OF NICOTINE DEPENDENCE 09/16/1357 KENYON SNYDER MD Ot Z95.1 PRESENCE OF AORTOCORONARY BYPASS GRAFT 08/10/2011 Ot 185 MALIGN NEOPL PROSTATE 08/10/2011 Ot 401.9 HYPE RTENSION NOS 08/10/2011 Ot 714.0 RHEU MATOID ARTHRITIS 08/10/2011 Ot V15.82 HIS TORY OF TOBACCO USE 08/10/2011 Ot V45.81 AOR TOCORONARY BYPASS 08/10/2011 Ot V58.0 ENCO UNTER FOR RADIOTHERAPY 08/10/2011 Ot V58.66 RAYMON G-TERM (CURRENT) USE OF ASPIRIN 08/10/2011 Ot V58.69 OTH MED,LT,CURRENT USE 11/09/2011 Ot 185 MALIGN NEOPL PROSTATE 11/09/2011 Ot 401.9 HYPE RTENSION NOS 11/09/2011 Ot 714.0 RHEU MATOID ARTHRITIS 11/09/2011 Ot V15.82 HIS TORY OF TOBACCO USE 11/09/2011 Ot V45.81 AOR TOCORONARY BYPASS 11/09/2011 Ot V58.0 ENCO UNTER FOR RADIOTHERAPY 11/09/2011 Ot V58.66 RAYMON G-TERM (CURRENT) USE OF ASPIRIN 11/09/2011 Ot V58.69 OTH MED,LT,CURRENT USE 10/23/2014 ISIAH GAMBINO MD Ot 185 10/23/2014 ISIAH GAMBINO MD Ot V58.0 12/13/2014 ISIAH GAMBINO MD Ot 185 12/13/2014 ISIAH GAMBINO MD Ot 198.5 01/24/2015 ISIAH GAMBINO MD Ot 185 MALIGN NEOPL PROSTATE 01/24/2015 ISIAH GAMBINO MD Ot 198.5 SECONDARY MALIG CARLOS MANUEL BONE 01/24/2015 ISIAH GAMBINO MD Ot V58.0 ENCOUNTER FOR RADIOTHERAPY 07/01/2015 ISIAH GAMBINO MD Ot 185 07/01/2015 ISIAH GAMBINO MD Ot 198.5 07/01/2015 Ot 185 07/01/2015 Ot 185 07/01/2015 Ot 401.9 07/01/2015 Ot 714.0 07/01/2015 Ot V15.82 07/01/2015 Ot V45.81 07/01/2015 Ot V58.0 07/01/2015 Ot V58.66 07/01/2015 Ot V58.69 07/01/2015 ISIAH GAMBINO MD Ot 185 07/01/2015 ISIAH GAMBINO MD Ot 185 07/01/2015 ISIAH GAMBINO MD Ot V58.0 07/01/2015 ISIAH GAMBINO MD Ot 185 07/01/2015 ISIAH GAMBINO MD Ot 198.5 08/12/2015 Ot 185 08/12/2015 Ot 185 08/12/2015 Ot 401.9 08/12/2015 Ot 714.0 08/12/2015 Ot V15.82 08/12/2015 Ot V45.81 08/12/2015 Ot V58.0 08/12/2015 Ot V58.66 08/12/2015 Ot V58.69 08/12/2015 ISIAH GAMBINO MD Ot 185 08/12/2015 ISIAH GAMBINO MD Ot 185 08/12/2015 ISIAH GAMBINO MD Ot V58.0 08/12/2015 ISIAH GAMBINO MD Ot C61 08/12/2015 GAMBINO MD, ISIAH E Ot C79.5 1 08/15/2015 Ot 185 08/15/2015 Ot 185 08/15/2015 Ot 401.9 08/15/2015 Ot 714.0 08/15/2015 Ot V15.82 08/15/2015 Ot V45.81 08/15/2015 Ot V58.0 08/15/2015 Ot V58.66 08/15/2015 Ot V58.69 08/15/2015 IMMANUEL CAPPS, ISIAH E Ot 185 08/15/2015 IMMANUEL CAPPS, ISIAH E Ot 185 08/15/2015 IMMANUEL CAPPS, ISIAH E Ot V58.0 08/15/2015 IMMANUEL CAPPS, ISIAH E Ot C61 08/15/2015 ISIAH GAMBINO MD E Ot C79.5 1 08/19/2015 KEE CARDENAS, JET HEADP Ot C61 08/19/2015 KEE CARDENAS, JET HEADP Ot C79.51 08/22/2015 Ot 185 08/22/2015 Ot 185 08/22/2015 Ot 401.9 08/22/2015 Ot 714.0 08/22/2015 Ot V15.82 08/22/2015 Ot V45.81 08/22/2015 Ot V58.0 08/22/2015 Ot V58.66 08/22/2015 Ot V58.69 08/22/2015 IMMANUEL CAPPS, ISIAH E Ot 185 08/22/2015 IMMANUEL CAPPS, ISIAH E Ot 185 08/22/2015 IMMANUEL CAPPS, ISIAH E Ot V58.0 08/22/2015 IMMANUEL CAPPS, ISIAH E Ot C61 08/22/2015 IMMANUEL CAPPS ISIAH E Ot C79.5 1 08/22/2015 KEE CARDENAS, JET Rapp PROFESSOR OF NURSING Ot C61 08/22/2015 KEE RN, JET Rapp PROFESSOR OF NURSING Ot C79.51 08/22/2015 KEE CARDENAS, JET Rapp PROFESSOR OF NURSING Ot C61 08/22/2015 KEE RN, JET HEADP Ot C79.51 08/28/2015 IMMANUEL CAPPS, ISIAH E Ot C61 08/28/2015 IMMANUEL CAPPS ISIAH E Ot C79.5 1 09/18/2015 KEE CARDENAS, JET Rapp PROFESSOR OF NURSING Ot C61 09/18/2015 KEE RN, JET C PROFESSOR OF NURSING Ot C79.51 09/24/2015 KEE RN, JET C PROFESSOR OF NURSING Ot C61 09/24/2015 KEE RN, JET C PROFESSOR OF NURSING Ot C79.51 09/27/2015 KEE RN, JET C PROFESSOR OF NURSING Ot C61 09/27/2015 KEE RN, JET C PROFESSOR OF NURSING Ot C79.51 10/07/2015 KEE RN, JET C PROFESSOR OF NURSING Ot C61 10/07/2015 KEE RN, JET C PROFESSOR OF NURSING Ot C79.51 10/29/2015 JAKOB, BOBAN N Ot C61 10/29/2015 JAKOB, BOBAN N Ot C79.51 10/29/2015 JAKOB, BOBAN N Ot E11.22 10/29/2015 JAKOB, BOBAN N Ot I25.10 10/29/2015 JAKOB, BOBAN N Ot N18.3 10/29/2015 JAKOB, BOBAN N Ot Z79.899 10/29/2015 JAKOB, BOBAN N Ot Z87.891 10/29/2015 JAKOB, BOBAN N Ot Z95.1 11/05/2015 JAKOB, BOBAN N Ot C61 11/05/2015 JAKOB, BOBAN N Ot C79.51 11/05/2015 JAKOB, BOBAN N Ot E11.22 11/05/2015 JAKOB, BOBAN N Ot I25.10 11/05/2015 JAKOB, BOBAN N Ot N18.3 11/05/2015 JAKOB, BOBAN N Ot Z79.899 11/05/2015 JAKOB, BOBAN N Ot Z87.891 11/05/2015 JKAOB, BOBAN N Ot Z95.1 11/20/2015 JAKOB, BOBAN N Ot C61 MALIGNANT NEOPLASM OF PROSTATE 11/20/2015 JAKOB, BOBAN N Ot C79.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 11/20/2015 JAKOB, BOBAN N Ot 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 11/20/2015 JAKOB, BOBAN N Ot I25.10 ATHSCL HEART DISEASE OF [place] CORONARY 11/20/2015 JAKOB BOBAN N Ot N18.3 CHRONIC KIDNEY DISEASE, STAGE 3 (MODERAT 11/20/2015 RAMONA ROBERT N Ot Z79.899 OTHER SKILLED NURSING (CURRENT) DRUG THERAPY 11/20/2015 RAMONA ROBERT N Ot Z87.891 PERSONAL HISTORY OF NICOTINE DEPENDENCE 11/20/2015 RAMONA ROBERT N Ot Z95.1 PRESENCE OF AORTOCORONARY BYPASS GRAFT 12/13/2015 RAMONA ROBERT N Ot C61 12/13/2015 RAMONA ROBERT N Ot C79.51 12/13/2015 RAMONA ROBERT N Ot E11.22 12/13/2015 RAMONA ROBERT N Ot I25.10 12/13/2015 RAMONA ROBERT N Ot N18.3 12/13/2015 RAMONA ROBERT N Ot Z79.899 12/13/2015 RAMONA ROBERT N Ot Z87.891 12/13/2015 RAMONA ROBERT N Ot Z95.1 12/27/2015 HEATH HAYDEN PROFESSOR OF NURSING Ot C 61 12/27/2015 HEATH HAYDEN PROFESSOR OF NURSING Ot C79.51 12/27/2015 HEATH HAYDEN PROFESSOR OF NURSING Ot E11.22 12/27/2015 HEATH HAYDEN PROFESSOR OF NURSING Ot I25.10 12/27/2015 HEATH HAYDEN PROFESSOR OF NURSING Ot N18.3 12/27/2015 HEATH HAYDEN PROFESSOR OF NURSING Ot Z79.899 12/27/2015 HEATH HAYDEN PROFESSOR OF NURSING Ot Z87.891 12/27/2015 HEATH HAYDEN PROFESSOR OF NURSING Ot Z95.1 12/31/2015 HEATH HAYDEN PROFESSOR OF NURSING Ot C 61 12/31/2015 HEATH HAYDEN S PROFESSOR OF NURSING Ot C79.51 12/31/2015 HEATH HAYDEN PROFESSOR OF NURSING Ot E11.22 12/31/2015 HEATH HAYDEN PROFESSOR OF NURSING Ot I25.10 12/31/2015 HEATH HAYDEN PROFESSOR OF NURSING Ot N18.3 12/31/2015 HEATH HAYDEN PROFESSOR OF NURSING Ot Z79.899 12/31/2015 HEATH HAYDEN S PROFESSOR OF NURSING Ot Z87.891 12/31/2015 HEATH AHYDEN S PROFESSOR OF NURSING Ot Z95.1 01/21/2016 RAMONA ROBERT N Ot C61 01/21/2016 JAKOB, CHERELLEAN N Ot C79.51 01/21/2016 JAKOB, CHERELLEAN N Ot E11.22 01/21/2016 JAKOB, CHERELLEAN N Ot I25.10 01/21/2016 JAKOB, RAMONA N Ot N18.3 01/21/2016 JAKOB, CHERELLEAN N Ot Z79.899 01/21/2016 JAKOB, CHERELLEAN N Ot Z87.891 01/21/2016 AJKOB, RAMONA N Ot Z95.1 01/23/2016 JAKOB, RAMONA N Ot C61 01/23/2016 JAKOB, BOBAN N Ot C79.51 01/23/2016 JAKOB, CHERELLEAN N Ot E11.22 01/23/2016 JAKOB, BOBAN N Ot I25.10 01/23/2016 JAKOB, RAMONA N Ot N18.3 01/23/2016 JAKOB, RAMONA N Ot Z79.899 01/23/2016 JAKOB, RAMONA N Ot Z87.891 01/23/2016 JAKOBRAMONA N Ot Z95.1 03/11/2016 JAKOBRAMONA PINTO N Ot C61 MALIGNANT NEOPLASM OF PROSTATE 03/11/2016 JAKOBRAMONA PINTO N Ot C79.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 03/11/2016 RAMONA ROBERT N Ot 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 03/11/2016 RAMONA ROBERT N Ot I25.10 ATHSCL HEART DISEASE OF [place] CORONARY 03/11/2016 RAMONA ROBERT N Ot N18.3 CHRONIC KIDNEY DISEASE, STAGE 3 (MODERAT 03/11/2016 JAKOBRAMONA PINTO N Ot 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 03/11/2016 JAKOBRAMONA PINTO N Ot Z87.891 PERSONAL HISTORY OF NICOTINE DEPENDENCE 03/11/2016 JAKOBCHERELLE PINTOAN N Ot Z95.1 PRESENCE OF AORTOCORONARY BYPASS GRAFT 05/27/2016 JAKOBRAMONA PINTO N Ot C61 MALIGNANT NEOPLASM OF PROSTATE 05/27/2016 JAKOBRAMONA PINTO N Ot C79.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 05/27/2016 JAKOB, CHERELLEAN N Ot 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 05/27/2016 RAMONA ROBERT Ot I25.10 ATHSCL HEART DISEASE OF [place] CORONARY 05/27/2016 RAMONA ROBERT Ot N18.3 CHRONIC KIDNEY DISEASE, STAGE 3 (MODERAT 05/27/2016 RAMONA ROBERT Ot 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 05/27/2016 RAMONA ROBERT Ot Z87.891 PERSONAL HISTORY OF NICOTINE DEPENDENCE 05/27/2016 RAMONA ROBERT Ot Z95.1 PRESENCE OF AORTOCORONARY BYPASS GRAFT 05/29/2016 RAMONA ROBERT Ot C61 MALIGNANT NEOPLASM OF PROSTATE 05/29/2016 RAMONA ROBERT Ot C79.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 05/29/2016 RAMONA ROBERT Ot 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 05/29/2016 RAMONA ROBERT Ot I25.10 ATHSCL HEART DISEASE OF [place] CORONARY 05/29/2016 RAMONA ROBERT Ot N18.3 CHRONIC KIDNEY DISEASE, STAGE 3 (MODERAT 05/29/2016 RAMONA ROBERT Ot Z79.899 OTHER SKILLED NURSING (CURRENT) DRUG THERAPY 05/29/2016 RAMONA ROBERT Ot Z87.891 PERSONAL HISTORY OF NICOTINE DEPENDENCE 05/29/2016 RAMONA ROBERT Ot Z95.1 PRESENCE OF AORTOCORONARY BYPASS GRAFT 06/01/2016 HEATH HAYDEN PROFESSOR OF NURSING Ot C 61 MALIGNANT NEOPLASM OF PROSTATE 06/19/2016 HEATH HAYDEN PROFESSOR OF NURSING Ot C 61 MALIGNANT NEOPLASM OF PROSTATE 06/24/2016 HEATH HAYDEN PROFESSOR OF NURSING Ot C 61 MALIGNANT NEOPLASM OF PROSTATE 06/26/2016 Ot 185 MALIGN NEOPL PROSTATE 06/26/2016 Ot 185 MALIGN NEOPL PROSTATE 06/26/2016 Ot 401.9 HYPE RTENSION NOS 06/26/2016 Ot 714.0 RHEU MATOID ARTHRITIS 06/26/2016 Ot V15.82 HIS TORY OF TOBACCO USE 06/26/2016 Ot V45.81 AOR TOCORONARY BYPASS 06/26/2016 Ot V58.0 ENCO UNTER FOR RADIOTHERAPY 06/26/2016 Ot V58.66 RAYMON G-TERM (CURRENT) USE OF ASPIRIN 06/26/2016 Ot V58.69 OTH MED,LT,CURRENT USE 06/26/2016 IMMANUEL CAPPS, ISIAH E Ot 185 MALIGN NEOPL PROSTATE 06/26/2016 ISIAH GAMBINO MD Ot 185 MALIGN NEOPL PROSTATE 06/26/2016 IMMANUEL CAPPS, ISIAH [place] Ot V58.0 ENCOUNTER FOR RADIOTHERAPY 06/26/2016 IMMANUEL CAPPS, ISIAH [place] Ot C61 MALIGNANT NEOPLASM OF PROSTATE 06/26/2016 ISIAH GAMBINO MD Ot C79.5 1 SECONDARY MALIGNANT NEOPLASM OF BONE 06/26/2016 KEE RN, JET C PROFESSOR OF NURSING Ot C61 MALIGNANT NEOPLASM OF PROSTATE 06/26/2016 KEE RN, JET C PROFESSOR OF NURSING Ot C79.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 06/26/2016 SINDY-RAMIN RN, JET C PROFESSOR OF NURSING Ot C61 MALIGNANT NEOPLASM OF PROSTATE 06/26/2016 SINDY-RAMIN RN, JET C PROFESSOR OF NURSING Ot C79.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 06/26/2016 SINDY-RAMIN RN, JET C PROFESSOR OF NURSING Ot C61 MALIGNANT NEOPLASM OF PROSTATE 06/26/2016 SINDYRAMIN RN, JET C PROFESSOR OF NURSING Ot C79.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 06/26/2016 HEATH HAYDEN PROFESSOR OF NURSING Ot C 61 MALIGNANT NEOPLASM OF PROSTATE 06/26/2016 HEATH HAYDEN PROFESSOR OF NURSING Ot C79.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 06/26/2016 HEATH HAYDEN PROFESSOR OF NURSING Ot 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 06/26/2016 HEATH HAYDENP Ot I25.10 ATHSCL HEART DISEASE OF [place] CORONARY 06/26/2016 HEATH HAYDENP Ot N18.3 CHRONIC KIDNEY DISEASE, STAGE 3 (MODERAT 06/26/2016 HEATH HAYDEN PROFESSOR OF NURSING Ot 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 06/26/2016 HEATH HAYDEN PROFESSOR OF NURSING Ot Z87.891 PERSONAL HISTORY OF NICOTINE DEPENDENCE 06/26/2016 HEATH HAYDEN PROFESSOR OF NURSING Ot Z95.1 PRESENCE OF AORTOCORONARY BYPASS GRAFT 06/26/2016 RAMONA ROBERT Ot C61 MALIGNANT NEOPLASM OF PROSTATE 06/26/2016 RAMONA ROBERT Ot C79.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 06/26/2016 RAMONA ROBERT Ot 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 06/26/2016 RAMONA ROBERT N Ot I25.10 ATHSCL HEART DISEASE OF [place] CORONARY 06/26/2016 RAMONA ROBERT N Ot N18.3 CHRONIC KIDNEY DISEASE, STAGE 3 (MODERAT 06/26/2016 RAMONA ROBERT N Ot Z79.899 OTHER SKILLED NURSING (CURRENT) DRUG THERAPY 06/26/2016 RAMONA ROBERT N Ot Z87.891 PERSONAL HISTORY OF NICOTINE DEPENDENCE 06/26/2016 RAMONA ROBERT N Ot Z95.1 PRESENCE OF AORTOCORONARY BYPASS GRAFT 06/26/2016 HAYDENHEATH Packer S PROFESSOR OF NURSING Ot C 61 MALIGNANT NEOPLASM OF PROSTATE 07/20/2016 HAYDENHEATH S PROFESSOR OF NURSING Ot C79.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 07/20/2016 HAYDENSTEVOAH S PROFESSOR OF NURSING Ot R91.1 SOLITARY PULMONARY NODULE 07/20/2016 HAYDEN HILAH S PROFESSOR OF NURSING Ot R93.8 ABNORMAL FINDINGS ON DIAGNOSTIC IMAGING 07/23/2016 HAYDENHEATH Packer S PROFESSOR OF NURSING Ot C79.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 07/23/2016 HAYDENHEATH S PROFESSOR OF NURSING Ot R91.1 SOLITARY PULMONARY NODULE 07/23/2016 HAYDENSTEVOAH S PROFESSOR OF NURSING Ot R93.8 ABNORMAL FINDINGS ON DIAGNOSTIC IMAGING 07/27/2016 RAMONA ROBERT N Ot C61 MALIGNANT NEOPLASM OF PROSTATE 07/27/2016 RAMONA ROBERT N Ot C79.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 07/27/2016 RAMONA ROBERT N Ot 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 07/27/2016 RAMONA ROBERT N Ot I25.10 ATHSCL HEART DISEASE OF [place] CORONARY 07/27/2016 RAMONA ROBERT N Ot N18.3 CHRONIC KIDNEY DISEASE, STAGE 3 (MODERAT 07/27/2016 RAMONA ROBERT N Ot Z79.899 OTHER SKILLED NURSING (CURRENT) DRUG THERAPY 07/27/2016 RAMONA ROBERT N Ot Z87.891 PERSONAL HISTORY OF NICOTINE DEPENDENCE 07/27/2016 RAMONA ROBERT N Ot Z95.1 PRESENCE OF AORTOCORONARY BYPASS GRAFT 09/02/2016 RAMONA ROBERT N Ot C61 MALIGNANT NEOPLASM OF PROSTATE 09/02/2016 JAKOB CHERELLEBIANCA N Ot C79.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 09/02/2016 RAMONA ROBERT N Ot 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 09/02/2016 RAMONA ROBERT N Ot I25.10 ATHSCL HEART DISEASE OF [place] CORONARY 09/02/2016 RAMONA ROBERT N Ot N18.3 CHRONIC KIDNEY DISEASE, STAGE 3 (MODERAT 09/02/2016 RAMONA ROBERT N Ot Z79.899 OTHER SKILLED NURSING (CURRENT) DRUG THERAPY 09/02/2016 RAMONA ROBERT N Ot Z87.891 PERSONAL HISTORY OF NICOTINE DEPENDENCE 09/02/2016 RAMONA ROBERT N Ot Z95.1 PRESENCE OF AORTOCORONARY BYPASS GRAFT 10/20/2016 RAMONA ROBERT N Ot C61 MALIGNANT NEOPLASM OF PROSTATE 10/20/2016 JAKOB BOBAN N Ot C79.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 10/20/2016 RAMONA ROBERT N Ot 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 10/20/2016 RAMONA ROBERT N Ot I25.10 ATHSCL HEART DISEASE OF [place] CORONARY 10/20/2016 RAMONA ROBERT N Ot N18.3 CHRONIC KIDNEY DISEASE, STAGE 3 (MODERAT 10/20/2016 RAMONA ROBERT N Ot 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 10/20/2016 RAMONA ROBERT N Ot Z87.891 PERSONAL HISTORY OF NICOTINE DEPENDENCE 10/20/2016 RAMONA ROBERT N Ot Z95.1 PRESENCE OF AORTOCORONARY BYPASS GRAFT 10/23/2016 RAMONA ROBERT N Ot C61 MALIGNANT NEOPLASM OF PROSTATE 10/23/2016 RAMONA ROBERT N Ot C79.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 10/23/2016 RAMONA ROBERT N Ot 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 10/23/2016 RAMONA ROBERT N Ot I25.10 ATHSCL HEART DISEASE OF [place] CORONARY 10/23/2016 RAMONA ROBERT N Ot N18.3 CHRONIC KIDNEY DISEASE, STAGE 3 (MODERAT 10/23/2016 JAKOBRAMONA PINTO N Ot 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 10/23/2016 RAMONA ROBERT N Ot Z87.891 PERSONAL HISTORY OF NICOTINE DEPENDENCE 10/23/2016 RAMONA ROBERT N Ot Z95.1 PRESENCE OF AORTOCORONARY BYPASS GRAFT 11/25/2016 RAMONA ROBERT N Ot C61 MALIGNANT NEOPLASM OF PROSTATE 11/25/2016 RAMONA ROBERT N Ot C79.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 11/25/2016 RAMONA ROBERT N Ot 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 11/25/2016 RAMONA ROBERT N Ot I25.10 ATHSCL HEART DISEASE OF [place] CORONARY 11/25/2016 RAMONA ROBERT N Ot N18.3 CHRONIC KIDNEY DISEASE, STAGE 3 (MODERAT 11/25/2016 RAMONA ROBERT N Ot 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 11/25/2016 RAMONA ROBERT N Ot Z87.891 PERSONAL HISTORY OF NICOTINE DEPENDENCE 11/25/2016 RAMONA ROBERT N Ot Z95.1 PRESENCE OF AORTOCORONARY BYPASS GRAFT 11/26/2016 RAMONA ROBERT Lyudmila Ot C61 MALIGNANT NEOPLASM OF PROSTATE 11/26/2016 RAMONA ROBERT N Ot C79.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 11/26/2016 RAMONA ROBERT N Ot 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 11/26/2016 RAMONA ROBERT N Ot I25.10 ATHSCL HEART DISEASE OF [place] CORONARY 11/26/2016 RAMONA ROBERT N Ot N18.3 CHRONIC KIDNEY DISEASE, STAGE 3 (MODERAT 11/26/2016 RAMONA ROBERT N Ot Z79.899 OTHER SKILLED NURSING (CURRENT) DRUG THERAPY 11/26/2016 RAMONA ROBERT N Ot Z87.891 PERSONAL HISTORY OF NICOTINE DEPENDENCE 11/26/2016 RAMONA ROBERT N Ot Z95.1 PRESENCE OF AORTOCORONARY BYPASS GRAFT 02/17/2017 Ot 185 MALIGN NEOPL PROSTATE 02/17/2017 Ot 185 MALIGN NEOPL PROSTATE 02/17/2017 Ot 401.9 HYPE RTENSION NOS 02/17/2017 Ot 714.0 RHEU MATOID ARTHRITIS 02/17/2017 Ot V15.82 HIS TORY OF TOBACCO USE 02/17/2017 Ot V45.81 AOR TOCORONARY BYPASS 02/17/2017 Ot V58.0 ENCO UNTER FOR RADIOTHERAPY 02/17/2017 Ot V58.66 RAYMON G-TERM (CURRENT) USE OF ASPIRIN 02/17/2017 Ot V58.69 OTH MED,LT,CURRENT USE 02/17/2017 ISIAH GAMBINO MD Ot 185 MALIGN NEOPL PROSTATE 02/17/2017 ISIAH GAMBINO MD Ot 185 MALIGN NEOPL PROSTATE 02/17/2017 ISIAH GAMBINO MD Ot V58.0 ENCOUNTER FOR RADIOTHERAPY 02/17/2017 ISIAH GAMBINO MD Ot C61 MALIGNANT NEOPLASM OF PROSTATE 02/17/2017 ISIAH GAMBINO MD Ot C79.5 1 SECONDARY MALIGNANT NEOPLASM OF BONE 02/17/2017 KEE RN, JET C PROFESSOR OF NURSING Ot C61 MALIGNANT NEOPLASM OF PROSTATE 02/17/2017 KEE RN, JET C PROFESSOR OF NURSING Ot C79.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 02/17/2017 SINDY-RAMIN RN, JET C PROFESSOR OF NURSING Ot C61 MALIGNANT NEOPLASM OF PROSTATE 02/17/2017 SINDY-RAMIN RN, JET C PROFESSOR OF NURSING Ot C79.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 02/17/2017 KEE RN, JET C PROFESSOR OF NURSING Ot C61 MALIGNANT NEOPLASM OF PROSTATE 02/17/2017 KEE RN, JET C PROFESSOR OF NURSING Ot C79.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 02/17/2017 HEATH HAYDEN PROFESSOR OF NURSING Ot C 61 MALIGNANT NEOPLASM OF PROSTATE 02/17/2017 HEATH HAYDENP Ot C79.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 02/17/2017 HEATH HAYDENP Ot 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 02/17/2017 HEATH HAYDENP Ot I25.10 ATHSCL HEART DISEASE OF [place] CORONARY 02/17/2017 HEATH HAYDENP Ot N18.3 CHRONIC KIDNEY DISEASE, STAGE 3 (MODERAT 02/17/2017 HEATH HAYDEN PROFESSOR OF NURSING Ot 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 02/17/2017 HEATH HAYDENP Ot Z87.891 PERSONAL HISTORY OF NICOTINE DEPENDENCE 02/17/2017 HEATH HAYDENP Ot Z95.1 PRESENCE OF AORTOCORONARY BYPASS GRAFT 02/17/2017 HEATH HAYDEN PROFESSOR OF NURSING Ot C 61 MALIGNANT NEOPLASM OF PROSTATE 02/17/2017 HEATH HAYDENP Ot C79.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 02/17/2017 HAYDEN, HILAH S PROFESSOR OF NURSING Ot R91.1 SOLITARY PULMONARY NODULE 02/17/2017 HEATH HAYDEN [facility] Ot R93.8 ABNORMAL FINDINGS ON DIAGNOSTIC IMAGING 02/17/2017 RAMONA ROBERT Lyudmila Ot C61 MALIGNANT NEOPLASM OF PROSTATE 02/17/2017 RAMONA ROBERT N Ot C79.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 02/17/2017 RAMONA ROBERT N Ot 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 02/17/2017 RAMONA ROBERT N Ot I25.10 ATHSCL HEART DISEASE OF [place] CORONARY 02/17/2017 RAMONA ROBERT N Ot N18.3 CHRONIC KIDNEY DISEASE, STAGE 3 (MODERAT 02/17/2017 RAMONA ROBERT N Ot Z79.899 OTHER SKILLED NURSING (CURRENT) DRUG THERAPY 02/17/2017 RAMONA ROBERT N Ot Z87.891 PERSONAL HISTORY OF NICOTINE DEPENDENCE 02/17/2017 RAMONA ROBERT Lyudmila Ot Z95.1 PRESENCE OF AORTOCORONARY BYPASS GRAFT 02/18/2017 RAMONA ROBERT Lyudmila Ot C61 MALIGNANT NEOPLASM OF PROSTATE 02/18/2017 RAMONA ROBERT Lyudmila Ot C79.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 02/18/2017 RAMONA ROBERT N Ot 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 02/18/2017 RAMONA ROBERT N Ot I25.10 ATHSCL HEART DISEASE OF [place] CORONARY 02/18/2017 RAMONA ROBERT N Ot N18.3 CHRONIC KIDNEY DISEASE, STAGE 3 (MODERAT 02/18/2017 RAMONA ROBERT N Ot Z79.899 OTHER SKILLED NURSING (CURRENT) DRUG THERAPY 02/18/2017 RAMONA ROBERT Lyudmila Ot Z87.891 PERSONAL HISTORY OF NICOTINE DEPENDENCE 02/18/2017 RAMONA ROBERT N Ot Z95.1 PRESENCE OF AORTOCORONARY BYPASS GRAFT 03/31/2017 Ot 185 MALIGN NEOPL PROSTATE 03/31/2017 Ot 185 MALIGN NEOPL PROSTATE 03/31/2017 Ot 401.9 HYPE RTENSION NOS 03/31/2017 Ot 714.0 RHEU MATOID ARTHRITIS 03/31/2017 Ot V15.82 HIS TORY OF TOBACCO USE 03/31/2017 Ot V45.81 AOR TOCORONARY BYPASS 03/31/2017 Ot V58.0 ENCO UNTER FOR RADIOTHERAPY 03/31/2017 Ot V58.66 RAYMON G-TERM (CURRENT) USE OF ASPIRIN 03/31/2017 Ot V58.69 OTH MED,LT,CURRENT USE 03/31/2017 ISIAH GAMBINO MD Ot 185 MALIGN NEOPL PROSTATE 03/31/2017 ISIAH GAMBINO MD Ot 185 MALIGN NEOPL PROSTATE 03/31/2017 ISIAH GAMBINO MD Ot V58.0 ENCOUNTER FOR RADIOTHERAPY 03/31/2017 ISIAH GAMBINO MD Ot C61 MALIGNANT NEOPLASM OF PROSTATE 03/31/2017 ISIAH GAMBINO MD Ot C79.5 1 SECONDARY MALIGNANT NEOPLASM OF BONE 03/31/2017 KEE RN, JET C PROFESSOR OF NURSING Ot C61 MALIGNANT NEOPLASM OF PROSTATE 03/31/2017 SINDY-RAMIN RN, JET C PROFESSOR OF NURSING Ot C79.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 03/31/2017 SINDY-RAMIN RN, JET C PROFESSOR OF NURSING Ot C61 MALIGNANT NEOPLASM OF PROSTATE 03/31/2017 KEE RN, JET C PROFESSOR OF NURSING Ot C79.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 03/31/2017 SINDY-RAMIN RN, JET C PROFESSOR OF NURSING Ot C61 MALIGNANT NEOPLASM OF PROSTATE 03/31/2017 KEE RN, JET C PROFESSOR OF NURSING Ot C79.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 03/31/2017 HEATH HAYDEN Ot C 61 MALIGNANT NEOPLASM OF PROSTATE 03/31/2017 HEATH HAYDENP Ot C79.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 03/31/2017 HEATH HAYDENP Ot 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 03/31/2017 HEATH HAYDENP Ot I25.10 ATHSCL HEART DISEASE OF [place] CORONARY 03/31/2017 HEATH HAYDENP Ot N18.3 CHRONIC KIDNEY DISEASE, STAGE 3 (MODERAT 03/31/2017 HEATH HAYDEN Ot Z79.899 OTHER SKILLED NURSING (CURRENT) DRUG THERAPY 03/31/2017 HEATH HAYDEN Ot Z87.891 PERSONAL HISTORY OF NICOTINE DEPENDENCE 03/31/2017 HEATH HAYDEN Ot Z95.1 PRESENCE OF AORTOCORONARY BYPASS GRAFT 03/31/2017 HEATH HAYDEN Ot C 61 MALIGNANT NEOPLASM OF PROSTATE 03/31/2017 HAYDEN, HILAH S PROFESSOR OF NURSING Ot C79.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 03/31/2017 STEVO HAYDENDOM Birdie PROFESSOR OF NURSING Ot R91.1 SOLITARY PULMONARY NODULE 03/31/2017 HEATH HAYDEN PROFESSOR OF NURSING Ot R93.8 ABNORMAL FINDINGS ON DIAGNOSTIC IMAGING 03/31/2017 RAMONA ROBERT Lyudmila Ot C61 MALIGNANT NEOPLASM OF PROSTATE 03/31/2017 RAMONA ROBERT N Ot C79.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 03/31/2017 RAMONA ROBERT N Ot 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 03/31/2017 RAMONA ROBERT N Ot I25.10 ATHSCL HEART DISEASE OF [place] CORONARY 03/31/2017 RAMONA ROBERT N Ot N18.3 CHRONIC KIDNEY DISEASE, STAGE 3 (MODERAT 03/31/2017 RAMONA ROBERT N Ot Z79.899 OTHER SKILLED NURSING (CURRENT) DRUG THERAPY 03/31/2017 RAMONA ROBERT N Ot Z87.891 PERSONAL HISTORY OF NICOTINE DEPENDENCE 03/31/2017 RAMONA ROBERT N Ot Z95.1 PRESENCE OF AORTOCORONARY BYPASS GRAFT 04/09/2017 RAMONA ROBERT N Ot C61 MALIGNANT NEOPLASM OF PROSTATE 04/09/2017 RAMONA ROBERT N Ot C79.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 04/09/2017 RAMONA ROBERT N Ot 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 04/09/2017 RAMONA ROBERT N Ot I25.10 ATHSCL HEART DISEASE OF [place] CORONARY 04/09/2017 RAMONA ROBERT N Ot N18.3 CHRONIC KIDNEY DISEASE, STAGE 3 (MODERAT 04/09/2017 RAMONA ROBERT N Ot 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 04/09/2017 RAMONA ROBERT N Ot Z87.891 PERSONAL HISTORY OF NICOTINE DEPENDENCE 04/09/2017 RAMONA ROBERT N Ot Z95.1 PRESENCE OF AORTOCORONARY BYPASS GRAFT 04/09/2017 Ot 185 MALIGN NEOPL PROSTATE 04/09/2017 Ot 185 MALIGN NEOPL PROSTATE 04/09/2017 Ot 401.9 HYPE RTENSION NOS 04/09/2017 Ot 714.0 RHEU MATOID ARTHRITIS 04/09/2017 Ot V15.82 HIS TORY OF TOBACCO USE 04/09/2017 Ot V45.81 AOR TOCORONARY BYPASS 04/09/2017 Ot V58.0 ENCO UNTER FOR RADIOTHERAPY 04/09/2017 Ot V58.66 RAYMON G-TERM (CURRENT) USE OF ASPIRIN 04/09/2017 Ot V58.69 OTH MED,LT,CURRENT USE 04/09/2017 ISIAH GAMBINO MD Ot 185 MALIGN NEOPL PROSTATE 04/09/2017 ISIAH GAMBINO MD Ot 185 MALIGN NEOPL PROSTATE 04/09/2017 ISIAH GAMBINO MD Ot V58.0 ENCOUNTER FOR RADIOTHERAPY 04/09/2017 ISIAH GAMBINO MD Ot C61 MALIGNANT NEOPLASM OF PROSTATE 04/09/2017 ISIAH GAMBINO MD Ot C79.5 1 SECONDARY MALIGNANT NEOPLASM OF BONE 04/09/2017 KEE RN, JET C PROFESSOR OF NURSING Ot C61 MALIGNANT NEOPLASM OF PROSTATE 04/09/2017 KEE RN, JET C PROFESSOR OF NURSING Ot C79.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 04/09/2017 KEE RN, JET C PROFESSOR OF NURSING Ot C61 MALIGNANT NEOPLASM OF PROSTATE 04/09/2017 KEE RN, JET C PROFESSOR OF NURSING Ot C79.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 04/09/2017 KEE RN, JET C PROFESSOR OF NURSING Ot C61 MALIGNANT NEOPLASM OF PROSTATE 04/09/2017 KEE RN, JET C PROFESSOR OF NURSING Ot C79.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 04/09/2017 HEATH HAYDEN PROFESSOR OF NURSING Ot C 61 MALIGNANT NEOPLASM OF PROSTATE 04/09/2017 HEATH HAYDENP Ot C79.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 04/09/2017 HEATH HAYDENP Ot 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 04/09/2017 HEATH HAYDENP Ot I25.10 ATHSCL HEART DISEASE OF [place] CORONARY 04/09/2017 HEATH HAYDENP Ot N18.3 CHRONIC KIDNEY DISEASE, STAGE 3 (MODERAT 04/09/2017 HEATH HAYDENP Ot Z79.899 OTHER SKILLED NURSING (CURRENT) DRUG THERAPY 04/09/2017 HEATH HAYDENP Ot Z87.891 PERSONAL HISTORY OF NICOTINE DEPENDENCE 04/09/2017 HEATH HAYDENP Ot Z95.1 PRESENCE OF AORTOCORONARY BYPASS GRAFT 04/09/2017 HAYDEN HEATH Packer PROFESSOR OF NURSING Ot C 61 MALIGNANT NEOPLASM OF PROSTATE 04/09/2017 HEATH HAYDEN PROFESSOR OF NURSING Ot C79.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 04/09/2017 HEATH HAYDEN PROFESSOR OF NURSING Ot R91.1 SOLITARY PULMONARY NODULE 04/09/2017 HEATH HAYDEN PROFESSOR OF NURSING Ot R93.8 ABNORMAL FINDINGS ON DIAGNOSTIC IMAGING 04/09/2017 RAMONA ROBERT N Ot C61 MALIGNANT NEOPLASM OF PROSTATE 04/09/2017 RAMONA ROBERT N Ot C79.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 04/09/2017 JAKOBRAMONA PINTO N Ot 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 04/09/2017 RAMONA ROBERT N Ot I25.10 ATHSCL HEART DISEASE OF [place] CORONARY 04/09/2017 RAMONA ROBERT N Ot N18.3 CHRONIC KIDNEY DISEASE, STAGE 3 (MODERAT 04/09/2017 JAKOBCHERELLE PINTOAN N Ot 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 04/09/2017 RAMONA ROBERT N Ot Z87.891 PERSONAL HISTORY OF NICOTINE DEPENDENCE 04/09/2017 JAKOBRAMONA PINTO N Ot Z95.1 PRESENCE OF AORTOCORONARY BYPASS GRAFT 04/15/2017 RAMONA ROBERT N Ot C61 MALIGNANT NEOPLASM OF PROSTATE 04/15/2017 RAMONA ROBERT N Ot C79.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 04/15/2017 RAMONA ROBERT N Ot 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 04/15/2017 RAMONA ROBERT N Ot I25.10 ATHSCL HEART DISEASE OF [place] CORONARY 04/15/2017 RAMONA ROBERT N Ot N18.3 CHRONIC KIDNEY DISEASE, STAGE 3 (MODERAT 04/15/2017 JAKOBCHERELLE PINTOAN N Ot 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 04/15/2017 JAKOBCHERELLE PINTOAN N Ot Z87.891 PERSONAL HISTORY OF NICOTINE DEPENDENCE 04/15/2017 JAKOB, BOBAN N Ot Z95.1 PRESENCE OF AORTOCORONARY BYPASS GRAFT 05/18/2017 RAMONA ROBERT N Ot C61 MALIGNANT NEOPLASM OF PROSTATE 05/18/2017 JAKOB CHERELLEBIANCA N Ot C79.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 05/18/2017 JAKOB, BOBAN N Ot 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 05/18/2017 RAMONA ROBERT N Ot I25.10 ATHSCL HEART DISEASE OF [place] CORONARY 05/18/2017 RAMONA ROBERT N Ot N18.3 CHRONIC KIDNEY DISEASE, STAGE 3 (MODERAT 05/18/2017 RAMONA ROBERT N Ot Z79.899 OTHER SKILLED NURSING (CURRENT) DRUG THERAPY 05/18/2017 RAMONA ROBERT N Ot Z87.891 PERSONAL HISTORY OF NICOTINE DEPENDENCE 05/18/2017 JAKOBRAMONA PINTO N Ot Z95.1 PRESENCE OF AORTOCORONARY BYPASS GRAFT 05/20/2017 RAMONA ROBERT N Ot C61 MALIGNANT NEOPLASM OF PROSTATE 05/20/2017 RAMONA ROBERT N Ot C79.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 05/20/2017 RAMONA ROBERT N Ot 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 05/20/2017 RAMONA ROBERT N Ot I25.10 ATHSCL HEART DISEASE OF [place] CORONARY 05/20/2017 RAMONA ROBERT N Ot N18.3 CHRONIC KIDNEY DISEASE, STAGE 3 (MODERAT 05/20/2017 JAKOBRAMONA PINTO N Ot 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 05/20/2017 RAMONA ROBERT N Ot Z87.891 PERSONAL HISTORY OF NICOTINE DEPENDENCE 05/20/2017 JAKOB BOBBIANCA N Ot Z95.1 PRESENCE OF AORTOCORONARY BYPASS GRAFT 05/25/2017 RAMONA ROBERT N Ot C61 MALIGNANT NEOPLASM OF PROSTATE 05/25/2017 RAMONA ROBERT N Ot C79.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 05/25/2017 RAMONA ROBERT N Ot 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 05/25/2017 JAKOBRAMONA PINTO N Ot I25.10 ATHSCL HEART DISEASE OF [place] CORONARY 05/25/2017 RAMONA ROBERT N Ot N18.3 CHRONIC KIDNEY DISEASE, STAGE 3 (MODERAT 05/25/2017 JAKOB, BOBBIANCA N Ot 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 05/25/2017 JAKOB, BOBBIANCA N Ot Z87.891 PERSONAL HISTORY OF NICOTINE DEPENDENCE 05/25/2017 JAKOB, BOBAN N Ot Z95.1 PRESENCE OF AORTOCORONARY BYPASS GRAFT 07/17/2017 RAMONA ROBERT N Ot C61 MALIGNANT NEOPLASM OF PROSTATE 07/17/2017 CHERELLE ROBERTAN N Ot C79.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 07/17/2017 JAKOB BOBAN N Ot 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 07/17/2017 RAMONA ROBERT N Ot I25.10 ATHSCL HEART DISEASE OF [place] CORONARY 07/17/2017 RAMONA ROBERT N Ot N18.3 CHRONIC KIDNEY DISEASE, STAGE 3 (MODERAT 07/17/2017 JAKOB, BOBAN N Ot 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 07/17/2017 CHERELLE ROBERTAN N Ot Z87.891 PERSONAL HISTORY OF NICOTINE DEPENDENCE 07/17/2017 JAKOB BOBAN N Ot Z95.1 PRESENCE OF AORTOCORONARY BYPASS GRAFT 08/03/2017 RAMONA ROBERT N Ot C61 MALIGNANT NEOPLASM OF PROSTATE 08/03/2017 RAMONA ROBERT N Ot C79.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 08/03/2017 JAKOBCHERELLE PINTOAN N Ot 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 08/03/2017 JAKOBRAMONA PINTO N Ot I25.10 ATHSCL HEART DISEASE OF [place] CORONARY 08/03/2017 RAMONA ROBERT N Ot N18.3 CHRONIC KIDNEY DISEASE, STAGE 3 (MODERAT 08/03/2017 JAKOB, BOBAN N Ot 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 08/03/2017 RAMONA ROBERT N Ot Z87.891 PERSONAL HISTORY OF NICOTINE DEPENDENCE 08/03/2017 RAMONA ROBERT N Ot Z95.1 PRESENCE OF AORTOCORONARY BYPASS GRAFT 09/24/2017 RAMONA ROBERT N Ot C61 MALIGNANT NEOPLASM OF PROSTATE 09/24/2017 JAKOBCHERELLE PINTOAN N Ot C79.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 09/24/2017 JAKOB BOBAN N Ot 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 10/31/2017 RAMONA ROBERT N Ot I25.10 ATHSCL HEART DISEASE OF [place] CORONARY 10/31/2017 RAMONA ROBERT N Ot N18.3 CHRONIC KIDNEY DISEASE, STAGE 3 (MODERAT 10/31/2017 RAMONA ROBERT N Ot Z79.899 OTHER SKILLED NURSING (CURRENT) DRUG THERAPY 10/31/2017 RAMONA ROBERT N Ot Z87.891 PERSONAL HISTORY OF NICOTINE DEPENDENCE 10/31/2017 RAMONA ROBERT N Ot Z95.1 PRESENCE OF AORTOCORONARY BYPASS GRAFT 01/26/2018 KENYON SNYDER MD Ot C61 MALIGNANT NEOPLASM OF PROSTATE 01/26/2018 KENYON SNYDER MD Ot C79.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 01/26/2018 KENYON SNYDER MD Ot 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 01/26/2018 KENYON SNYDER MD Ot I25.10 ATHSCL HEART DISEASE OF [place] CORONARY 01/26/2018 KENYON SNYDER MD Ot N18.3 CHRONIC KIDNEY DISEASE, STAGE 3 (MODERAT 01/26/2018 KENYON SNYDER MD Ot Z79.899 OTHER SKILLED NURSING (CURRENT) DRUG THERAPY 01/26/2018 KENYON SNYDER MD Ot Z87.891 PERSONAL HISTORY OF NICOTINE DEPENDENCE 01/26/2018 KENYON SNYDER MD Ot Z95.1 PRESENCE OF AORTOCORONARY BYPASS GRAFT 01/26/2018 Ot 185 MALIGN NEOPL PROSTATE 01/26/2018 ISIAH GAMBINO MD Ot 185 MALIGN NEOPL PROSTATE 01/26/2018 IMMANUEL CAPPS, ISIAH [place] Ot 185 MALIGN NEOPL PROSTATE 01/26/2018 ISIAH GAMBINO MD Ot V58.0 ENCOUNTER FOR RADIOTHERAPY 01/26/2018 ISIAH GAMBINO MD Ot C61 MALIGNANT NEOPLASM OF PROSTATE 01/26/2018 ISIAH GAMBINO MD Ot C79.5 1 SECONDARY MALIGNANT NEOPLASM OF BONE 01/26/2018 KEE RN, JET C PROFESSOR OF NURSING Ot C61 MALIGNANT NEOPLASM OF PROSTATE 01/26/2018 SINDY-RAMIN RN, JET C PROFESSOR OF NURSING Ot C79.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 01/26/2018 SINDY-RAMIN RN, JET C PROFESSOR OF NURSING Ot C61 MALIGNANT NEOPLASM OF PROSTATE 01/26/2018 SINDY-RAMIN RN, JET C PROFESSOR OF NURSING Ot C79.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 01/26/2018 SINDY-RAMIN RN, JET C PROFESSOR OF NURSING Ot C61 MALIGNANT NEOPLASM OF PROSTATE 01/26/2018 KEE RN, JET C PROFESSOR OF NURSING Ot C79.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 01/26/2018 HEATH HAYDEN PROFESSOR OF NURSING Ot C 61 MALIGNANT NEOPLASM OF PROSTATE 01/26/2018 HEATH HAYDEN PROFESSOR OF NURSING Ot C79.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 01/26/2018 HEATH HAYDEN PROFESSOR OF NURSING Ot 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 01/26/2018 HEATH HAYDENP Ot I25.10 ATHSCL HEART DISEASE OF [place] CORONARY 01/26/2018 HEATH HAYDENP Ot N18.3 CHRONIC KIDNEY DISEASE, STAGE 3 (MODERAT 01/26/2018 HEATH HAYDENP Ot 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 01/26/2018 HEATH HAYDENP Ot Z87.891 PERSONAL HISTORY OF NICOTINE DEPENDENCE 01/26/2018 HEATH HAYDEN PROFESSOR OF NURSING Ot Z95.1 PRESENCE OF AORTOCORONARY BYPASS GRAFT 01/26/2018 HEATH HAYDEN PROFESSOR OF NURSING Ot C 61 MALIGNANT NEOPLASM OF PROSTATE 01/26/2018 HEATH HAYDEN PROFESSOR OF NURSING Ot C79.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 01/26/2018 HEATH HAYDEN PROFESSOR OF NURSING Ot R91.1 SOLITARY PULMONARY NODULE 01/26/2018 HAYDENHEATH Packer PROFESSOR OF NURSING Ot R93.8 ABNORMAL FINDINGS ON DIAGNOSTIC IMAGING 01/26/2018 KENYON SNYDER MD Ot C61 MALIGNANT NEOPLASM OF PROSTATE 01/26/2018 KENYON SNYDER MD, Ot C79.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 01/26/2018 KENYON SNYDER MD Ot 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 01/26/2018 KENYON SNYDER MD Ot I25.10 ATHSCL HEART DISEASE OF [place] CORONARY 01/26/2018 KENYON SNYDER MD Ot N18.3 CHRONIC KIDNEY DISEASE, STAGE 3 (MODERAT 01/26/2018 KENYON SNYDER MD Ot 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 01/26/2018 KENYON SNYDER MD Ot Z87.891 PERSONAL HISTORY OF NICOTINE DEPENDENCE 01/26/2018 KENYON SNYDER MD Ot Z95.1 PRESENCE OF AORTOCORONARY BYPASS GRAFT 01/26/2018 Ot 185 MALIGN NEOPL PROSTATE 01/26/2018 ISIAH GAMBINO MD Ot 185 MALIGN NEOPL PROSTATE 01/26/2018 ISIAH GAMBINO MD Ot 185 MALIGN NEOPL PROSTATE 01/26/2018 IMMANUEL CAPPS, ISIAH [place] Ot V58.0 ENCOUNTER FOR RADIOTHERAPY 01/26/2018 ISIAH GAMBINO MD Ot C61 MALIGNANT NEOPLASM OF PROSTATE 01/26/2018 SIIAH GAMBINO MD Ot C79.5 1 SECONDARY MALIGNANT NEOPLASM OF BONE 01/26/2018 KEE CARDENAS, JET Rapp PROFESSOR OF NURSING Ot C61 MALIGNANT NEOPLASM OF PROSTATE 01/26/2018 KEE CARDENAS, JET Rapp PROFESSOR OF NURSING Ot C79.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 01/26/2018 KEE CARDENAS, JET Rapp PROFESSOR OF NURSING Ot C61 MALIGNANT NEOPLASM OF PROSTATE 01/26/2018 KEE CARDENAS, JET Rapp PROFESSOR OF NURSING Ot C79.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 01/26/2018 KEE RN, JET C PROFESSOR OF NURSING Ot C61 MALIGNANT NEOPLASM OF PROSTATE 01/26/2018 KEE CARDENAS, JET C PROFESSOR OF NURSING Ot C79.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 01/26/2018 HEATH HAYDEN PROFESSOR OF NURSING Ot C 61 MALIGNANT NEOPLASM OF PROSTATE 01/26/2018 HEATH HAYDEN PROFESSOR OF NURSING Ot C79.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 01/26/2018 HEATH HAYDEN PROFESSOR OF NURSING Ot 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 01/26/2018 HEATH HAYDEN PROFESSOR OF NURSING Ot I25.10 ATHSCL HEART DISEASE OF [place] CORONARY 01/26/2018 HEATH HAYDEN PROFESSOR OF NURSING Ot N18.3 CHRONIC KIDNEY DISEASE, STAGE 3 (MODERAT 01/26/2018 HEATH HAYDEN PROFESSOR OF NURSING Ot 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 01/26/2018 HAYDENHEATH Packer PROFESSOR OF NURSING Ot Z87.891 PERSONAL HISTORY OF NICOTINE DEPENDENCE 01/26/2018 HEATH HAYDEN PROFESSOR OF NURSING Ot Z95.1 PRESENCE OF AORTOCORONARY BYPASS GRAFT 01/26/2018 HEATH HAYDEN PROFESSOR OF NURSING Ot C 61 MALIGNANT NEOPLASM OF PROSTATE 01/26/2018 HEATH HAYDEN PROFESSOR OF NURSING Ot C79.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 01/26/2018 HEATH HAYDEN PROFESSOR OF NURSING Ot R91.1 SOLITARY PULMONARY NODULE 01/26/2018 HEATH HAYDEN PROFESSOR OF NURSING Ot R93.8 ABNORMAL FINDINGS ON DIAGNOSTIC IMAGING 01/26/2018 KENYON SNYDER MD Ot C61 MALIGNANT NEOPLASM OF PROSTATE 01/26/2018 KENYON SNYDER MD, Ot C79.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 01/26/2018 KENYON SNYDER MD Ot 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 01/26/2018 KENYON SNYDER MD Ot I25.10 ATHSCL HEART DISEASE OF [place] CORONARY 01/26/2018 KENYON SNYDER MD Ot N18.3 CHRONIC KIDNEY DISEASE, STAGE 3 (MODERAT 01/26/2018 KENYON SNYDER MD Ot Z79.899 OTHER SKILLED NURSING (CURRENT) DRUG THERAPY 01/26/2018 KENYON SNYDER MD Ot Z87.891 PERSONAL HISTORY OF NICOTINE DEPENDENCE 01/26/2018 CLAUDIO MD, PRESCOTT Ot Z95.1 PRESENCE OF AORTOCORONARY BYPASS GRAFT 01/27/2018 KENYON SNYDER MD Ot C61 MALIGNANT NEOPLASM OF PROSTATE 01/27/2018 KENYON SNYDER MD Ot C79.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 01/27/2018 KENYON SNYDER MD Ot 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 01/27/2018 KENYON SNYDER MD Ot I25.10 ATHSCL HEART DISEASE OF [place] CORONARY 01/27/2018 KENYON SNYDRE MD Ot N18.3 CHRONIC KIDNEY DISEASE, STAGE 3 (MODERAT 01/27/2018 KENYON SNYDER MD Ot 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 01/27/2018 KENYON SNYDER MD Ot Z87.891 PERSONAL HISTORY OF NICOTINE DEPENDENCE 01/27/2018 KENYON SNYDER MD Ot Z95.1 PRESENCE OF AORTOCORONARY BYPASS GRAFT 02/04/2018 KENYON SNYDER MD Ot C61 MALIGNANT NEOPLASM OF PROSTATE 02/04/2018 KENYON SNYDER MD Ot C79.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 02/04/2018 KENYON SNYDER MD Ot K80.20 CALCULUS OF GALLBLADDER W/O CHOLECYSTITI 02/24/2018 KENYON SNYDER MD Ot C61 MALIGNANT NEOPLASM OF PROSTATE 02/24/2018 KENYON SNYDER MD Ot C79.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 02/24/2018 KENYON SNYDER MD Ot K80.20 CALCULUS OF GALLBLADDER W/O CHOLECYSTITI 03/09/2018 KENYON SNYDER MD Ot C61 MALIGNANT NEOPLASM OF PROSTATE 03/09/2018 KENYON SNYDER MD Ot C79.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 03/09/2018 KENYON SNYEDR MD Ot D64.9 ANEMIA, UNSPECIFIED 03/09/2018 KENYON SNYDER MD Ot 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 03/09/2018 KENYON SNYDER MD Ot I25.10 ATHSCL HEART DISEASE OF [place] CORONARY 03/09/2018 KENYON SNYDER MD Ot N18.3 CHRONIC KIDNEY DISEASE, STAGE 3 (MODERAT 03/09/2018 KENYON SNYDER MD Ot Z79.899 OTHER SKILLED NURSING (CURRENT) DRUG THERAPY 03/09/2018 KENYON SNYDER MD Ot Z87.891 PERSONAL HISTORY OF NICOTINE DEPENDENCE 03/09/2018 KENYON SNYDER MD Ot Z95.1 PRESENCE OF AORTOCORONARY BYPASS GRAFT 03/17/2018 KENYON SNYDER MD Ot C61 MALIGNANT NEOPLASM OF PROSTATE 03/17/2018 KENYON SNYDER MD Ot C79.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 03/17/2018 KENYON SNYDER MD Ot D64.9 ANEMIA, UNSPECIFIED 03/17/2018 DRU SNYDER MDNER Ot 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 03/17/2018 KENYON SNYDER MD Ot I25.10 ATHSCL HEART DISEASE OF [place] CORONARY 03/17/2018 KENYON SNYDER MD Ot N18.3 CHRONIC KIDNEY DISEASE, STAGE 3 (MODERAT 03/17/2018 KENYON SNYDER MD Ot Z79.899 OTHER SKILLED NURSING (CURRENT) DRUG THERAPY 03/17/2018 KENYON SNYDER MD Ot Z87.891 PERSONAL HISTORY OF NICOTINE DEPENDENCE 03/17/2018 KENYON SNYDER MD Ot Z95.1 PRESENCE OF AORTOCORONARY BYPASS GRAFT 03/17/2018 KENYON SNYDER MD Ot C61 MALIGNANT NEOPLASM OF PROSTATE 03/17/2018 KENYON SNYDER MD Ot C79.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 03/17/2018 KENYON SNYDER MD Ot D64.9 ANEMIA, UNSPECIFIED 03/17/2018 KENYON SNYDER MD Ot 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 03/17/2018 KENYON SNYDER MD Ot I25.10 ATHSCL HEART DISEASE OF [place] CORONARY 03/17/2018 KENYON SNYDER MD Ot N18.3 CHRONIC KIDNEY DISEASE, STAGE 3 (MODERAT 03/17/2018 KENYON SNYDER MD Ot Z79.899 OTHER SKILLED NURSING (CURRENT) DRUG THERAPY 03/17/2018 KENYON SNYDER MD Ot Z87.891 PERSONAL HISTORY OF NICOTINE DEPENDENCE 03/17/2018 KENYON SNYDER MD Ot Z95.1 PRESENCE OF AORTOCORONARY BYPASS GRAFT 03/23/2018 Ot 185 MALIGN NEOPL PROSTATE 03/23/2018 ISIAH GAMBINO MD Ot 185 MALIGN NEOPL PROSTATE 03/23/2018 ISIAH GAMBINO MD Ot 185 MALIGN NEOPL PROSTATE 03/23/2018 ISIAH GAMBINO MD, Ot V58.0 ENCOUNTER FOR RADIOTHERAPY 03/23/2018 ISIAH GAMBINO MD Ot C61 MALIGNANT NEOPLASM OF PROSTATE 03/23/2018 ISIAH GAMBINO MD, Ot C79.5 1 SECONDARY MALIGNANT NEOPLASM OF BONE 03/23/2018 KEE RN, JET C PROFESSOR OF NURSING Ot C61 MALIGNANT NEOPLASM OF PROSTATE 03/23/2018 KEE RN, JET C PROFESSOR OF NURSING Ot C79.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 03/23/2018 KEE RN, JET C PROFESSOR OF NURSING Ot C61 MALIGNANT NEOPLASM OF PROSTATE 03/23/2018 KEE RN, JET C PROFESSOR OF NURSING Ot C79.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 03/23/2018 KEE RN, JET C PROFESSOR OF NURSING Ot C61 MALIGNANT NEOPLASM OF PROSTATE 03/23/2018 KEE RN, JET C PROFESSOR OF NURSING Ot C79.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 03/23/2018 HEATH HAYDEN PROFESSOR OF NURSING Ot C 61 MALIGNANT NEOPLASM OF PROSTATE 03/23/2018 HEATH HAYDEN PROFESSOR OF NURSING Ot C79.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 03/23/2018 HEATH HAYDEN PROFESSOR OF NURSING Ot 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 03/23/2018 HEATH HAYDEN PROFESSOR OF NURSING Ot I25.10 ATHSCL HEART DISEASE OF [place] CORONARY 03/23/2018 HEATH HAYDEN PROFESSOR OF NURSING Ot N18.3 CHRONIC KIDNEY DISEASE, STAGE 3 (MODERAT 03/23/2018 HEATH HAYDEN PROFESSOR OF NURSING Ot 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 03/23/2018 HEATH HAYDEN PROFESSOR OF NURSING Ot Z87.891 PERSONAL HISTORY OF NICOTINE DEPENDENCE 03/23/2018 HEATH HAYDEN PROFESSOR OF NURSING Ot Z95.1 PRESENCE OF AORTOCORONARY BYPASS GRAFT 03/23/2018 HEATH HAYDEN PROFESSOR OF NURSING Ot C 61 MALIGNANT NEOPLASM OF PROSTATE 03/23/2018 HEATH HAYDEN PROFESSOR OF NURSING Ot C79.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 03/23/2018 HEATH HAYDEN PROFESSOR OF NURSING Ot R91.1 SOLITARY PULMONARY NODULE 03/23/2018 HEATH HAYDEN PROFESSOR OF NURSING Ot R93.8 ABNORMAL FINDINGS ON DIAGNOSTIC IMAGING 03/23/2018 KENYON SNYDER MD Ot C61 MALIGNANT NEOPLASM OF PROSTATE 03/23/2018 KENYON SNYDER MD, Ot C79.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 03/23/2018 KENYON SNYDER MD Ot D64.9 ANEMIA, UNSPECIFIED 03/23/2018 KENYON SNYDER MD Ot 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 03/23/2018 KENYON SNYDER MD Ot I25.10 ATHSCL HEART DISEASE OF [place] CORONARY 03/23/2018 KENYON SNYDER MD Ot N18.3 CHRONIC KIDNEY DISEASE, STAGE 3 (MODERAT 03/23/2018 KENYON SNYDER MD Ot 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 03/23/2018 KENYON SNYDER MD Ot Z87.891 PERSONAL HISTORY OF NICOTINE DEPENDENCE 03/23/2018 KENYON SNYDER MD Ot Z95.1 PRESENCE OF AORTOCORONARY BYPASS GRAFT 03/23/2018 KENYON SNYDER MD Ot C61 MALIGNANT NEOPLASM OF PROSTATE 03/23/2018 KENYON SNYDER MD Ot C79.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 03/23/2018 KENYON SNYDER MD Ot K80.20 CALCULUS OF GALLBLADDER W/O CHOLECYSTITI 03/24/2018 KENYON NSYDER MD Ot C61 MALIGNANT NEOPLASM OF PROSTATE 03/24/2018 KENYON SNYDER MD Ot C79.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 03/24/2018 KENYON SNYDER MD Ot D64.9 ANEMIA, UNSPECIFIED 03/24/2018 KENYON SNYDER MD Ot 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 03/24/2018 KENYON SNYDER MD Ot I25.10 ATHSCL HEART DISEASE OF [place] CORONARY 03/24/2018 KENYON SNYDER MD Ot N18.3 CHRONIC KIDNEY DISEASE, STAGE 3 (MODERAT 03/24/2018 KENYON SNYDER MD Ot Z79.899 OTHER SKILLED NURSING (CURRENT) DRUG THERAPY 03/24/2018 KENYON SNYDER MD Ot Z87.891 PERSONAL HISTORY OF NICOTINE DEPENDENCE 03/24/2018 KENYON SNYDER MD Ot Z95.1 PRESENCE OF AORTOCORONARY BYPASS GRAFT 03/24/2018 KENYON SNYDER MD Ot C61 MALIGNANT NEOPLASM OF PROSTATE 03/24/2018 KENYON SNYDER MD Ot C79.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 03/24/2018 KENYON SNYDER MD Ot D64.9 ANEMIA, UNSPECIFIED 03/24/2018 DRU SNYDER MDNER Ot 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 03/24/2018 DRU SNYDER MDNER Ot I25.10 ATHSCL HEART DISEASE OF [place] CORONARY 03/24/2018 KENYON SNYDER MD Ot N18.3 CHRONIC KIDNEY DISEASE, STAGE 3 (MODERAT 03/24/2018 DRU SNYDER MDNER Ot 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 03/24/2018 DRU SNYDER MDNER Ot Z87.891 PERSONAL HISTORY OF NICOTINE DEPENDENCE 03/24/2018 DRU SNYDER MDNER Ot Z95.1 PRESENCE OF AORTOCORONARY BYPASS GRAFT 04/26/2018 KENYON SNYDER MD Ot C61 MALIGNANT NEOPLASM OF PROSTATE 04/26/2018 KENYON SNYDER MD Ot C79.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 04/26/2018 KENYON SNYDER MD Ot D64.9 ANEMIA, UNSPECIFIED 04/26/2018 DRU SNYDER MDNER Ot 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 04/26/2018 DRU SNYDER MDNER Ot I25.10 ATHSCL HEART DISEASE OF [place] CORONARY 04/26/2018 KENYON SNYDER MD Ot N18.3 CHRONIC KIDNEY DISEASE, STAGE 3 (MODERAT 04/26/2018 KENYON SNYDER MD Ot Z79.899 OTHER SKILLED NURSING (CURRENT) DRUG THERAPY 04/26/2018 KENYON SNYDER MD Ot Z87.891 PERSONAL HISTORY OF NICOTINE DEPENDENCE 04/26/2018 DRU SNYDER MDNER Ot Z95.1 PRESENCE OF AORTOCORONARY BYPASS GRAFT 04/27/2018 KENYON SNYDER MD Ot C61 MALIGNANT NEOPLASM OF PROSTATE 04/27/2018 KENYON SNYDER MD Ot C79.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 04/27/2018 KENYON SNYDER MD Ot D64.9 ANEMIA, UNSPECIFIED 04/27/2018 DRU SNYDER MDNER Ot 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 04/27/2018 DRU SNYDER MDNER Ot I25.10 ATHSCL HEART DISEASE OF [place] CORONARY 04/27/2018 DRU SNYDER MDNER Ot N18.3 CHRONIC KIDNEY DISEASE, STAGE 3 (MODERAT 04/27/2018 KENYON SNYDER MD Ot Z79.899 OTHER SKILLED NURSING (CURRENT) DRUG THERAPY 04/27/2018 KENYON SNYDER MD Ot Z87.891 PERSONAL HISTORY OF NICOTINE DEPENDENCE 04/27/2018 DRU SNYDER MDNER Ot Z95.1 PRESENCE OF AORTOCORONARY BYPASS GRAFT 05/11/2018 KENYON SNYDER MD Ot C61 MALIGNANT NEOPLASM OF PROSTATE 05/11/2018 DRU SNYDER MDNER Ot C79.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 05/11/2018 KENYON SNYDER MD Ot D64.9 ANEMIA, UNSPECIFIED 05/11/2018 KENYON SNYDER MD Ot 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 05/11/2018 KENYON SNYDER MD Ot I25.10 ATHSCL HEART DISEASE OF [place] CORONARY 05/11/2018 KENYON SNYDER MD Ot N18.3 CHRONIC KIDNEY DISEASE, STAGE 3 (MODERAT 05/11/2018 KENYON SNYDER MD Ot Z79.899 OTHER SKILLED NURSING (CURRENT) DRUG THERAPY 05/11/2018 KENYON SNYDER MD, Ot Z87.891 PERSONAL HISTORY OF NICOTINE DEPENDENCE 05/11/2018 KENYON SNYDER MD, Ot Z95.1 PRESENCE OF AORTOCORONARY BYPASS GRAFT 06/09/2018 IMMANUEL CAPPS, ISIAH [place] Ot 185 MALIGN NEOPL PROSTATE 06/09/2018 ISIAH GAMBINO MD Ot 185 MALIGN NEOPL PROSTATE 06/09/2018 ISIAH GAMBINO MD Ot V58.0 ENCOUNTER FOR RADIOTHERAPY 06/09/2018 IMMANUEL CAPPS, ISIAH [place] Ot C61 MALIGNANT NEOPLASM OF PROSTATE 06/09/2018 IMMANUEL CAPPS, ISIAH [place] Ot C79.5 1 SECONDARY MALIGNANT NEOPLASM OF BONE 06/09/2018 KEE RN, JET C PROFESSOR OF NURSING Ot C61 MALIGNANT NEOPLASM OF PROSTATE 06/09/2018 KEE RN, JET C PROFESSOR OF NURSING Ot C79.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 06/09/2018 KEE RN, JET C PROFESSOR OF NURSING Ot C61 MALIGNANT NEOPLASM OF PROSTATE 06/09/2018 KEE RN, JET C PROFESSOR OF NURSING Ot C79.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 06/09/2018 KEE RN, JET C PROFESSOR OF NURSING Ot C61 MALIGNANT NEOPLASM OF PROSTATE 06/09/2018 KEE RN, JET C PROFESSOR OF NURSING Ot C79.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 06/09/2018 HEATH HAYDEN PROFESSOR OF NURSING Ot C 61 MALIGNANT NEOPLASM OF PROSTATE 06/09/2018 HEATH HAYDENP Ot C79.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 06/09/2018 HEATH HAYDEN Ot 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 06/09/2018 HEATH HAYDEN Ot I25.10 ATHSCL HEART DISEASE OF [place] CORONARY 06/09/2018 HAYDEN, HILAH S PROFESSOR OF NURSING Ot N18.3 CHRONIC KIDNEY DISEASE, STAGE 3 (MODERAT 06/09/2018 HAYDENHEATH Packer PROFESSOR OF NURSING Ot Z79.899 OTHER SKILLED NURSING (CURRENT) DRUG THERAPY 06/09/2018 HAYDENHEATH Packer PROFESSOR OF NURSING Ot Z87.891 PERSONAL HISTORY OF NICOTINE DEPENDENCE 06/09/2018 HAYDENHEATH Packer PROFESSOR OF NURSING Ot Z95.1 PRESENCE OF AORTOCORONARY BYPASS GRAFT 06/09/2018 HAYDENHEATH Packer PROFESSOR OF NURSING Ot C 61 MALIGNANT NEOPLASM OF PROSTATE 06/09/2018 HAYDENHEATH Packer PROFESSOR OF NURSING Ot C79.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 06/09/2018 HAYDENHEATH Packer PROFESSOR OF NURSING Ot R91.1 SOLITARY PULMONARY NODULE 06/09/2018 HAYDENHEATH Packer PROFESSOR OF NURSING Ot R93.8 ABNORMAL FINDINGS ON DIAGNOSTIC IMAGING 06/09/2018 KENYON SNYDER MD, Ot C61 MALIGNANT NEOPLASM OF PROSTATE 06/09/2018 KENYON SNYDER MD Ot C79.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 06/09/2018 KENYON SNYDER MD Ot K80.20 CALCULUS OF GALLBLADDER W/O CHOLECYSTITI 06/09/2018 KENYON SNYDER MD Ot C61 MALIGNANT NEOPLASM OF PROSTATE 06/09/2018 KENYON SNYDER MD Ot C79.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 06/09/2018 KENYON SNYDER MD Ot D64.9 ANEMIA, UNSPECIFIED 06/09/2018 KENYON SNYDER MD Ot 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 06/09/2018 KENYON SNYDER MD Ot I25.10 ATHSCL HEART DISEASE OF [place] CORONARY 06/09/2018 KENYON SNYDER MD Ot N18.3 CHRONIC KIDNEY DISEASE, STAGE 3 (MODERAT 06/09/2018 KENYON SNYDER MD Ot 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 06/09/2018 KENYON SNYDER MD Ot Z87.891 PERSONAL HISTORY OF NICOTINE DEPENDENCE 06/09/2018 KENYON SNYDER MD Ot Z95.1 PRESENCE OF AORTOCORONARY BYPASS GRAFT 06/09/2018 KENYON SNYDER MD Ot C61 MALIGNANT NEOPLASM OF PROSTATE 06/09/2018 KENYON SNYDER MD Ot C79.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 06/09/2018 KENYON SNYDER MD Ot D64.9 ANEMIA, UNSPECIFIED 06/09/2018 KENYON SNYDER MD Ot 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 06/09/2018 KENYON SNYDER MD Ot I25.10 ATHSCL HEART DISEASE OF [place] CORONARY 06/09/2018 KENYON SNYDER MD Ot N18.3 CHRONIC KIDNEY DISEASE, STAGE 3 (MODERAT 06/09/2018 KENYON SNYDER MD Ot 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 06/09/2018 KENYON SNYDER MD, Ot Z87.891 PERSONAL HISTORY OF NICOTINE DEPENDENCE 06/09/2018 KENYON SNYDER MD Ot Z95.1 PRESENCE OF AORTOCORONARY BYPASS GRAFT 06/09/2018 IMMANUEL CAPPS, ISIAH [place] Ot 185 MALIGN NEOPL PROSTATE 06/09/2018 ISIAH GAMBINO MD Ot 185 MALIGN NEOPL PROSTATE 06/09/2018 ISIAH GAMBINO MD Ot V58.0 ENCOUNTER FOR RADIOTHERAPY 06/09/2018 IMMANUEL CAPPS, ISIAH [place] Ot C61 MALIGNANT NEOPLASM OF PROSTATE 06/09/2018 IMMANUEL CAPPS, ISIAH [place] Ot C79.5 1 SECONDARY MALIGNANT NEOPLASM OF BONE 06/09/2018 KEE RN, JET C PROFESSOR OF NURSING Ot C61 MALIGNANT NEOPLASM OF PROSTATE 06/09/2018 KEE RN, JET C PROFESSOR OF NURSING Ot C79.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 06/09/2018 SINDY-RAMIN RN, JET C PROFESSOR OF NURSING Ot C61 MALIGNANT NEOPLASM OF PROSTATE 06/09/2018 KEE RN, JET C PROFESSOR OF NURSING Ot C79.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 06/09/2018 KEE RN, JET C PROFESSOR OF NURSING Ot C61 MALIGNANT NEOPLASM OF PROSTATE 06/09/2018 KEE RN, JET C PROFESSOR OF NURSING Ot C79.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 06/09/2018 HEATH HAYDEN PROFESSOR OF NURSING Ot C 61 MALIGNANT NEOPLASM OF PROSTATE 06/09/2018 HEATH HAYDEN PROFESSOR OF NURSING Ot C79.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 06/09/2018 HEATH HAYDENP Ot 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 06/09/2018 HEATH HAYDENP Ot I25.10 ATHSCL HEART DISEASE OF [place] CORONARY 06/09/2018 HEATH HAYDENP Ot N18.3 CHRONIC KIDNEY DISEASE, STAGE 3 (MODERAT 06/09/2018 HAYDENHEATH Packer PROFESSOR OF NURSING Ot Z79.899 OTHER SKILLED NURSING (CURRENT) DRUG THERAPY 06/09/2018 HAYDENHEATH Packer PROFESSOR OF NURSING Ot Z87.891 PERSONAL HISTORY OF NICOTINE DEPENDENCE 06/09/2018 HAYDENHEATH Packer PROFESSOR OF NURSING Ot Z95.1 PRESENCE OF AORTOCORONARY BYPASS GRAFT 06/09/2018 HAYDENHEATH Packer PROFESSOR OF NURSING Ot C 61 MALIGNANT NEOPLASM OF PROSTATE 06/09/2018 HEATH HAYDEN PROFESSOR OF NURSING Ot C79.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 06/09/2018 HEATH HAYDEN PROFESSOR OF NURSING Ot R91.1 SOLITARY PULMONARY NODULE 06/09/2018 HAYDENHEATH Packer PROFESSOR OF NURSING Ot R93.8 ABNORMAL FINDINGS ON DIAGNOSTIC IMAGING 06/09/2018 KENYON SNYDER MD Ot C61 MALIGNANT NEOPLASM OF PROSTATE 06/09/2018 KENYON SNYDER MD, Ot C79.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 06/09/2018 KENYON SNYDER MD Ot K80.20 CALCULUS OF GALLBLADDER W/O CHOLECYSTITI 06/09/2018 KENYON SNYDER MD Ot C61 MALIGNANT NEOPLASM OF PROSTATE 06/09/2018 KENYON SNYDER MD Ot C79.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 06/09/2018 KENYON SNYDER MD Ot D64.9 ANEMIA, UNSPECIFIED 06/09/2018 KENYON SNYDER MD Ot 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 06/09/2018 KENYON SNYDER MD Ot I25.10 ATHSCL HEART DISEASE OF [place] CORONARY 06/09/2018 KENYON SNYDER MD Ot N18.3 CHRONIC KIDNEY DISEASE, STAGE 3 (MODERAT 06/09/2018 KENYON SNYDER MD Ot 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 06/09/2018 KENYON SNYDER MD Ot Z87.891 PERSONAL HISTORY OF NICOTINE DEPENDENCE 06/09/2018 KENYON SNYDER MD Ot Z95.1 PRESENCE OF AORTOCORONARY BYPASS GRAFT 06/10/2018 KENYON SNYDER MD Ot C61 MALIGNANT NEOPLASM OF PROSTATE 06/10/2018 KENYON SNYDER MD Ot C79.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 06/10/2018 KENYON SNYDER MD Ot D64.9 ANEMIA, UNSPECIFIED 06/10/2018 KENYON SNYDER MD Ot 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 06/10/2018 KENYON SNYDER MD Ot I25.10 ATHSCL HEART DISEASE OF [place] CORONARY 06/10/2018 KENYON SNYDER MD Ot N18.3 CHRONIC KIDNEY DISEASE, STAGE 3 (MODERAT 06/10/2018 KENYON SNYDER MD Ot 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 06/10/2018 KENYON SNYDER MD Ot Z87.891 PERSONAL HISTORY OF NICOTINE DEPENDENCE 06/10/2018 KENYON SNYDER MD Ot Z95.1 PRESENCE OF AORTOCORONARY BYPASS GRAFT 06/10/2018 JESS MORGAN APRN Ot C61 MALIGNANT NEOPLASM OF PROSTATE 06/10/2018 JESS MORGAN APRN Ot C79.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 06/10/2018 JESS MORGAN APRN Ot F03.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 BEHAVIORAL 06/10/2018 JESS MORGAN APRN Ot I25.10 ATHSCL HEART DISEASE OF [place] CORONARY 06/10/2018 JESS MORGAN APRN Ot M54 .9 DORSALGIA, UNSPECIFIED 06/10/2018 JESS MORGAN APRN Ot N18 .9 CHRONIC KIDNEY DISEASE, UNSPECIFIED 06/10/2018 JESS MORGAN APRN Ot N28.82 MEGALOURETER 06/10/2018 JESS MORGAN APRN Ot R10.31 RIGHT LOWER QUADRANT PAIN 06/10/2018 JESS MORGAN APRN Ot R10.32 LEFT LOWER QUADRANT PAIN 06/10/2018 JESS MORGAN APRN Ot Z85.46 PERSONAL HISTORY OF MALIGNANT NEOPLASM O 06/10/2018 JESS MORGAN APRN Ot Z85.830 PERSONAL HISTORY OF MALIGNANT NEOPLASM O 06/10/2018 JESS MORGAN APRN Ot Z87.891 PERSONAL HISTORY OF NICOTINE DEPENDENCE 06/10/2018 JESS MORGAN APRN Ot Z95 .1 PRESENCE OF AORTOCORONARY BYPASS GRAFT 06/13/2018 JESS MORGAN APRN Ot F03.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 BEHAVIORAL 06/13/2018 JESS MORGAN APRN Ot I25.10 ATHSCL HEART DISEASE OF [place] CORONARY 06/13/2018 JESS MORGAN APRN Ot M54 .9 DORSALGIA, UNSPECIFIED 06/13/2018 JESS MORGAN APRN Ot N18 .9 CHRONIC KIDNEY DISEASE, UNSPECIFIED 06/13/2018 MORGAN, PETER J CHUCKING LATHE OPERATOR Ot N28.82 MEGALOURETER 06/13/2018 JESS MORGAN CHUCKING LATHE OPERATOR Ot R10.31 RIGHT LOWER QUADRANT PAIN 06/13/2018 JESS MORGAN CHUCKING LATHE OPERATOR Ot R10.32 LEFT LOWER QUADRANT PAIN 06/13/2018 JESS MORGAN CHUCKING LATHE OPERATOR Ot Z85.46 PERSONAL HISTORY OF MALIGNANT NEOPLASM O 06/13/2018 JESS MORGAN CHUCKING LATHE OPERATOR Ot Z85.830 PERSONAL HISTORY OF MALIGNANT NEOPLASM O 06/13/2018 JESS MORGAN CHUCKING LATHE OPERATOR Ot Z87.891 PERSONAL HISTORY OF NICOTINE DEPENDENCE 06/13/2018 JESS MORGAN CHUCKING LATHE OPERATOR Ot Z95 .1 PRESENCE OF AORTOCORONARY BYPASS GRAFT 06/13/2018 JESS MORGAN CHUCKING LATHE OPERATOR Ot C61 MALIGNANT NEOPLASM OF PROSTATE 06/13/2018 JESS MORGAN CHUCKING LATHE OPERATOR Ot C79.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 06/13/2018 JESS MORGAN CHUCKING LATHE OPERATOR Ot F03.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 BEHAVIORAL 06/13/2018 JESS MORGAN CHUCKING LATHE OPERATOR Ot I25.10 ATHSCL HEART DISEASE OF [place] CORONARY 06/13/2018 JESS MORGAN CHUCKING LATHE OPERATOR Ot M54 .9 DORSALGIA, UNSPECIFIED 06/13/2018 JESS MORGAN CHUCKING LATHE OPERATOR Ot N18 .9 CHRONIC KIDNEY DISEASE, UNSPECIFIED 06/13/2018 JESS MORGAN CHUCKING LATHE OPERATOR Ot N28.82 MEGALOURETER 06/13/2018 JESS MORGAN CHUCKING LATHE OPERATOR Ot R10.31 RIGHT LOWER QUADRANT PAIN 06/13/2018 JESS MORGAN CHUCKING LATHE OPERATOR Ot R10.32 LEFT LOWER QUADRANT PAIN 06/13/2018 JESS MORGAN CHUCKING LATHE OPERATOR Ot Z87.891 PERSONAL HISTORY OF NICOTINE DEPENDENCE 06/13/2018 JESS MORGAN CHUCKING LATHE OPERATOR Ot Z95 .1 PRESENCE OF AORTOCORONARY BYPASS GRAFT 07/07/2018 ISIAH GAMBINO MD Ot 185 MALIGN NEOPL PROSTATE 07/07/2018 ISIAH GAMBINO MD Ot 185 MALIGN NEOPL PROSTATE 07/07/2018 ISIAH GAMBINO MD Ot V58.0 ENCOUNTER FOR RADIOTHERAPY 07/07/2018 ISIAH GAMBINO MD Ot C61 MALIGNANT NEOPLASM OF PROSTATE 07/07/2018 ISIAH GAMBINO MD Ot C79.5 1 SECONDARY MALIGNANT NEOPLASM OF BONE 07/07/2018 KEE CARDENAS, JET C PROFESSOR OF NURSING Ot C61 MALIGNANT NEOPLASM OF PROSTATE 07/07/2018 KEE RN, JET C PROFESSOR OF NURSING Ot C79.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 07/07/2018 KEE RN, JET C PROFESSOR OF NURSING Ot C61 MALIGNANT NEOPLASM OF PROSTATE 07/07/2018 KEE RN, JET C PROFESSOR OF NURSING Ot C79.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 07/07/2018 KEE CARDENAS, JET C PROFESSOR OF NURSING Ot C61 MALIGNANT NEOPLASM OF PROSTATE 07/07/2018 KEE RN, JET C PROFESSOR OF NURSING Ot C79.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 07/07/2018 HEATH HAYDEN PROFESSOR OF NURSING Ot C 61 MALIGNANT NEOPLASM OF PROSTATE 07/07/2018 HEATH HAYDEN PROFESSOR OF NURSING Ot C79.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 07/07/2018 HEATH HAYDEN PROFESSOR OF NURSING Ot 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 07/07/2018 HEATH HAYDEN PROFESSOR OF NURSING Ot I25.10 ATHSCL HEART DISEASE OF [place] CORONARY 07/07/2018 HEATH HAYDEN PROFESSOR OF NURSING Ot N18.3 CHRONIC KIDNEY DISEASE, STAGE 3 (MODERAT 07/07/2018 HEATH HAYDEN PROFESSOR OF NURSING Ot 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 07/07/2018 HEATH HAYDEN PROFESSOR OF NURSING Ot Z87.891 PERSONAL HISTORY OF NICOTINE DEPENDENCE 07/07/2018 HEATH HAYDEN PROFESSOR OF NURSING Ot Z95.1 PRESENCE OF AORTOCORONARY BYPASS GRAFT 07/07/2018 HEATH HAYDEN PROFESSOR OF NURSING Ot C 61 MALIGNANT NEOPLASM OF PROSTATE 07/07/2018 HEATH HAYDEN PROFESSOR OF NURSING Ot C79.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 07/07/2018 HEATH HAYDEN PROFESSOR OF NURSING Ot R91.1 SOLITARY PULMONARY NODULE 07/07/2018 HEATH HAYDEN PROFESSOR OF NURSING Ot R93.8 ABNORMAL FINDINGS ON DIAGNOSTIC IMAGING 07/07/2018 KENYON SNYDER MD Ot C61 MALIGNANT NEOPLASM OF PROSTATE 07/07/2018 KENYON SNYDER MD, Ot C79.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 07/07/2018 KENYON SNYDER MD Ot K80.20 CALCULUS OF GALLBLADDER W/O CHOLECYSTITI 07/07/2018 CLAUDIO MD, PRESCOTT Ot C61 MALIGNANT NEOPLASM OF PROSTATE 07/07/2018 KENYON SNYDER MD, Ot C79.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 07/07/2018 KENYON SNYDER MD Ot D64.9 ANEMIA, UNSPECIFIED 07/07/2018 KENYON SNYDER MD, Ot 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 07/07/2018 KENYON SNYDER MD, Ot F03.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 BEHAVIORAL 07/07/2018 KENYON SNYDER MD, Ot I25.10 ATHSCL HEART DISEASE OF [place] CORONARY 07/07/2018 KENYON SNYDER MD Ot M25.511 PAIN IN RIGHT SHOULDER 07/07/2018 KENYON SNYDER MD Ot M62.81 MUSCLE WEAKNESS (GENERALIZED) 07/07/2018 KENYON SNYDER MD Ot N18.4 CHRONIC KIDNEY DISEASE, STAGE 4 (SEVERE) 07/07/2018 KENYON SNYDER MD Ot R07.89 OTHER CHEST PAIN 07/07/2018 KENYON SNYDER MD Ot 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 07/07/2018 KENYON SNYDER MD, Ot Z87.891 PERSONAL HISTORY OF NICOTINE DEPENDENCE 07/07/2018 KENYON SNYDER MD Ot Z95.1 PRESENCE OF AORTOCORONARY BYPASS GRAFT 07/07/2018 KENYON SNYDER MD, Ot C79.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 07/07/2018 KENYON SNYDER MD Ot M19.011 PRIMARY OSTEOARTHRITIS, RIGHT SHOULDER 07/07/2018 KENYON SNYDER MD Ot M89.8X1 OTHER SPECIFIED DISORDERS OF BONE, [place]OUL 07/07/2018 KENYON SNYDER MD Ot R42 DIZZINESS AND GIDDINESS 07/07/2018 KENYON SNYDER MD Ot Z85.46 PERSONAL HISTORY OF MALIGNANT NEOPLASM O 07/07/2018 KENYON SNYDER MD Ot Z95.1 PRESENCE OF AORTOCORONARY BYPASS GRAFT 07/07/2018 KENYON SNYDER MD Ot Z98.890 OTHER SPECIFIED POSTPROCEDURAL STATES 07/08/2018 KENYON SNYDER MD, Ot C79.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 07/08/2018 KENYON SNYDER MD Ot M19.011 PRIMARY OSTEOARTHRITIS, RIGHT SHOULDER 07/08/2018 KENYON SNYDER MD Ot M89.8X1 OTHER SPECIFIED DISORDERS OF BONE, SHOUL 07/08/2018 KENYON SNYDER MD Ot R42 DIZZINESS AND GIDDINESS 07/08/2018 KENYON SNYDER MD Ot Z85.46 PERSONAL HISTORY OF MALIGNANT NEOPLASM O 07/08/2018 KENYON SNYDER MD Ot Z95.1 PRESENCE OF AORTOCORONARY BYPASS GRAFT 07/08/2018 KENYON SNYDER MD Ot Z98.890 OTHER SPECIFIED POSTPROCEDURAL STATES 07/11/2018 KENYON SNYDER MD Ot C61 MALIGNANT NEOPLASM OF PROSTATE 07/11/2018 KENYON SNYDER MD Ot C79.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 07/11/2018 KENYON SNYDER MD Ot D64.9 ANEMIA, UNSPECIFIED 07/11/2018 KENYON SNYDER MD Ot 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 07/11/2018 KENYON SNYDER MD Ot F03.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 BEHAVIORAL 07/11/2018 KENYON SNYDER MD Ot I25.10 ATHSCL HEART DISEASE OF [place] CORONARY 07/11/2018 KENYON SNYDER MD Ot M25.511 PAIN IN RIGHT SHOULDER 07/11/2018 KENYON SNYDER MD Ot M62.81 MUSCLE WEAKNESS (GENERALIZED) 07/11/2018 KENYON SNYDER MD Ot N18.4 CHRONIC KIDNEY DISEASE, STAGE 4 (SEVERE) 07/11/2018 KENYON SNYDER MD Ot R07.89 OTHER CHEST PAIN 07/11/2018 KENYON SNYDER MD Ot 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 07/11/2018 KENYON SNYDER MD Ot Z87.891 PERSONAL HISTORY OF NICOTINE DEPENDENCE 07/11/2018 KENYON SNYDER MD Ot Z95.1 PRESENCE OF AORTOCORONARY BYPASS GRAFT 07/13/2018 KENYON SNYDER MD Ot C61 MALIGNANT NEOPLASM OF PROSTATE 07/13/2018 KENYON SNYDER MD Ot C79.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 07/13/2018 KENYON SNYDER MD Ot D64.9 ANEMIA, UNSPECIFIED 07/13/2018 KENYON SNYDER MD Ot 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 07/13/2018 KENYON SNYDER MD Ot F03.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 BEHAVIORAL 07/13/2018 KENYON NSYDER MD Ot I25.10 ATHSCL HEART DISEASE OF [place] CORONARY 07/13/2018 KENYON SNYDER MD Ot M25.511 PAIN IN RIGHT SHOULDER 07/13/2018 KENYON SNYDER MD Ot M62.81 MUSCLE WEAKNESS (GENERALIZED) 07/13/2018 KENYON SNYDER MD Ot N18.4 CHRONIC KIDNEY DISEASE, STAGE 4 (SEVERE) 07/13/2018 KENYON SNYDER MD Ot R07.89 OTHER CHEST PAIN 07/13/2018 KENYON SNYDER MD Ot 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 07/13/2018 KENYON SNYDER MD Ot Z87.891 PERSONAL HISTORY OF NICOTINE DEPENDENCE 07/13/2018 KENYON SNYDER MD Ot Z95.1 PRESENCE OF AORTOCORONARY BYPASS GRAFT 07/21/2018 KENYON SNYDER MD Ot C61 MALIGNANT NEOPLASM OF PROSTATE 07/21/2018 KENYON SNYDER MD Ot C79.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 07/21/2018 KENYON SNYDER MD Ot D64.9 ANEMIA, UNSPECIFIED 07/21/2018 KENYON SNYDER MD Ot 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 07/21/2018 KENYON SNYDER MD Ot F03.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 BEHAVIORAL 07/21/2018 KENYON SNYDER MD Ot I25.10 ATHSCL HEART DISEASE OF [place] CORONARY 07/21/2018 KENYON SNYDER MD Ot M25.511 PAIN IN RIGHT SHOULDER 07/21/2018 KENYON SNYDER MD Ot M62.81 MUSCLE WEAKNESS (GENERALIZED) 07/21/2018 KENYON SNYDER MD Ot N18.4 CHRONIC KIDNEY DISEASE, STAGE 4 (SEVERE) 07/21/2018 KENYON SNYDER MD Ot R07.89 OTHER CHEST PAIN 07/21/2018 KENYON SNYDER MD Ot Z79.899 OTHER SKILLED NURSING (CURRENT) DRUG THERAPY 07/21/2018 KENYON SNYDER MD Ot Z87.891 PERSONAL HISTORY OF NICOTINE DEPENDENCE 07/21/2018 KENYON SNYDER MD Ot Z95.1 PRESENCE OF AORTOCORONARY BYPASS GRAFT 07/25/2018 KENYON SNYDER MD Ot C61 MALIGNANT NEOPLASM OF PROSTATE 07/25/2018 KENYON SNYDER MD Ot C79.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 07/25/2018 KENYON SNYDER MD Ot D64.9 ANEMIA, UNSPECIFIED 07/25/2018 KENYON SNYDER MD Ot 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 07/25/2018 KENYON SNYDER MD Ot F03.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 BEHAVIORAL 07/25/2018 KENYON SNYDER MD Ot I25.10 ATHSCL HEART DISEASE OF [place] CORONARY 07/25/2018 KENYON SNYDER MD Ot M25.511 PAIN IN RIGHT SHOULDER 07/25/2018 KENYON SNYDER MD Ot M62.81 MUSCLE WEAKNESS (GENERALIZED) 07/25/2018 KENYON SNYDER MD Ot N18.4 CHRONIC KIDNEY DISEASE, STAGE 4 (SEVERE) 07/25/2018 KENYON SNYDER MD Ot R07.89 OTHER CHEST PAIN 07/25/2018 KENYON SNYDER MD Ot Z79.899 OTHER SKILLED NURSING (CURRENT) DRUG THERAPY 07/25/2018 KENYON SNYDER MD Ot Z87.891 PERSONAL HISTORY OF NICOTINE DEPENDENCE 07/25/2018 KENYON SNYDER MD Ot Z95.1 PRESENCE OF AORTOCORONARY BYPASS GRAFT 07/25/2018 KENYON SNYDER MD Ot C61 MALIGNANT NEOPLASM OF PROSTATE 07/25/2018 KENYON SNYDER MD Ot C79.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 07/25/2018 KENOYN SNYDER MD Ot D64.9 ANEMIA, UNSPECIFIED 07/25/2018 KENYON SNYDER MD Ot 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 07/25/2018 KENYON SNYDER MD Ot F03.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 BEHAVIORAL 07/25/2018 KENYON SNYDER MD Ot I25.10 ATHSCL HEART DISEASE OF [place] CORONARY 07/25/2018 KENYON SNYDER MD Ot M25.511 PAIN IN RIGHT SHOULDER 07/25/2018 KENYON SNYDER MD Ot M62.81 MUSCLE WEAKNESS (GENERALIZED) 07/25/2018 KENYON SNYDER MD Ot N18.4 CHRONIC KIDNEY DISEASE, STAGE 4 (SEVERE) 07/25/2018 KENYON SNYDER MD Ot R07.89 OTHER CHEST PAIN 07/25/2018 KENYON SNYDER MD Ot 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 07/25/2018 KENYON SNYDER MD Ot Z87.891 PERSONAL HISTORY OF NICOTINE DEPENDENCE 07/25/2018 KENYON SNYDER MD Ot Z95.1 PRESENCE OF AORTOCORONARY BYPASS GRAFT 07/27/2018 KENYON SNYDER MD Ot C61 MALIGNANT NEOPLASM OF PROSTATE 07/27/2018 KENYON SNYDER MD Ot C79.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 07/27/2018 KENYON SNYDER MD Ot D64.9 ANEMIA, UNSPECIFIED 07/27/2018 KENYON SNYDER MD Ot 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 07/27/2018 KENYON SNYDER MD Ot F03.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 BEHAVIORAL 07/27/2018 KENYON SNYDER MD Ot I25.10 ATHSCL HEART DISEASE OF [place] CORONARY 07/27/2018 KENYON SNYDER MD Ot M25.511 PAIN IN RIGHT SHOULDER 07/27/2018 KENYON SNYDER MD Ot M62.81 MUSCLE WEAKNESS (GENERALIZED) 07/27/2018 KENYON SNYDER MD Ot N18.4 CHRONIC KIDNEY DISEASE, STAGE 4 (SEVERE) 07/27/2018 KENYON SNYDER MD Ot R07.89 OTHER CHEST PAIN 07/27/2018 KENYON SNYDER MD Ot 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 07/27/2018 KENYON SNYDER MD Ot Z87.891 PERSONAL HISTORY OF NICOTINE DEPENDENCE 07/27/2018 KENYON SNYDER MD Ot Z95.1 PRESENCE OF AORTOCORONARY BYPASS GRAFT 09/12/2018 KENYON SNYDER MD Ot C61 MALIGNANT NEOPLASM OF PROSTATE 09/12/2018 KENYON SNYDER MD Ot C79.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 09/12/2018 KENYON SNYDER MD Ot 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 09/14/2018 KENYON SNYDER MD Ot C61 MALIGNANT NEOPLASM OF PROSTATE 09/14/2018 KENYON SNYDER MD Ot C79.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 09/14/2018 KENYON SNYDER MD Ot 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 10/05/2018 KENYON SNYDER MD Ot C61 MALIGNANT NEOPLASM OF PROSTATE 10/05/2018 KENYON SNYDER MD Ot C79.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 10/05/2018 KENYON SNYDER MD Ot K80.20 CALCULUS OF GALLBLADDER W/O CHOLECYSTITI 10/25/2018 KENYON SNYDER MD Ot C61 MALIGNANT NEOPLASM OF PROSTATE 10/25/2018 KENYON SNYDER MD Ot C79.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 10/25/2018 KENYON SNYDER MD Ot 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 10/27/2018 KENYON SNYDER MD Ot C61 MALIGNANT NEOPLASM OF PROSTATE 10/27/2018 KENYON SNYDER MD Ot C79.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 10/27/2018 KENYON SNYDER MD Ot 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 10/28/2018 Ot 185 MALIGN NEOPL PROSTATE 10/28/2018 IMMANUEL CAPPS, ISIAH [place] Ot 185 MALIGN NEOPL PROSTATE 10/28/2018 IMMANUEL CAPPS, ISIAH [place] Ot V58.0 ENCOUNTER FOR RADIOTHERAPY 10/28/2018 IMMANUEL CAPPS, ISIAH [place] Ot C61 MALIGNANT NEOPLASM OF PROSTATE 10/28/2018 IMMANUEL CAPPS, ISIAH [place] Ot C79.5 1 SECONDARY MALIGNANT NEOPLASM OF BONE 10/28/2018 KEE RN, JET C PROFESSOR OF NURSING Ot C61 MALIGNANT NEOPLASM OF PROSTATE 10/28/2018 SINDY-RAMIN RN, JET C PROFESSOR OF NURSING Ot C79.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 10/28/2018 SINDY-RAMIN RN, JET C PROFESSOR OF NURSING Ot C61 MALIGNANT NEOPLASM OF PROSTATE 10/28/2018 SINDY-RAMIN RN, JET C PROFESSOR OF NURSING Ot C79.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 10/28/2018 SINDY-RAMIN RN, JET C PROFESSOR OF NURSING Ot C61 MALIGNANT NEOPLASM OF PROSTATE 10/28/2018 KEE RN, JET C PROFESSOR OF NURSING Ot C79.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 10/28/2018 HEATH HAYDEN PROFESSOR OF NURSING Ot C 61 MALIGNANT NEOPLASM OF PROSTATE 10/28/2018 HEATH HAYDEN PROFESSOR OF NURSING Ot C79.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 10/28/2018 HEATH HAYDEN PROFESSOR OF NURSING Ot 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 10/28/2018 HEATH HAYDENP Ot I25.10 ATHSCL HEART DISEASE OF [place] CORONARY 10/28/2018 HEATH HAYDENP Ot N18.3 CHRONIC KIDNEY DISEASE, STAGE 3 (MODERAT 10/28/2018 HEATH HAYDEN PROFESSOR OF NURSING Ot Z79.899 OTHER SKILLED NURSING (CURRENT) DRUG THERAPY 10/28/2018 HEATH HAYDEN PROFESSOR OF NURSING Ot Z87.891 PERSONAL HISTORY OF NICOTINE DEPENDENCE 10/28/2018 HEATH HAYDENP Ot Z95.1 PRESENCE OF AORTOCORONARY BYPASS GRAFT 10/28/2018 HEATH HAYDEN PROFESSOR OF NURSING Ot C 61 MALIGNANT NEOPLASM OF PROSTATE 10/28/2018 HEATH HAYDEN PROFESSOR OF NURSING Ot C79.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 10/28/2018 HEATH HAYDENP Ot R91.1 SOLITARY PULMONARY NODULE 10/28/2018 HEATH HAYDENP Ot R93.8 ABNORMAL FINDINGS ON DIAGNOSTIC IMAGING 10/28/2018 KENYON SNYDER MD Ot C61 MALIGNANT NEOPLASM OF PROSTATE 10/28/2018 KENYON SNYDER MD Ot C79.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 10/28/2018 KENYON SNYDER MD Ot K80.20 CALCULUS OF GALLBLADDER W/O CHOLECYSTITI 10/28/2018 KENYON SNYDER MD, Ot C79.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 10/28/2018 KENYON SNYDER MD Ot M19.011 PRIMARY OSTEOARTHRITIS, RIGHT SHOULDER 10/28/2018 KENYON SNYDER MD Ot M89.8X1 OTHER SPECIFIED DISORDERS OF BONE, SHOUL 10/28/2018 KENYON SNYDER MD Ot R42 DIZZINESS AND GIDDINESS 10/28/2018 KEYNON SNYDER MD Ot Z85.46 PERSONAL HISTORY OF MALIGNANT NEOPLASM O 10/28/2018 KENYON SNYDER MD Ot Z95.1 PRESENCE OF AORTOCORONARY BYPASS GRAFT 10/28/2018 KENYON SNYDER MD Ot Z98.890 OTHER SPECIFIED POSTPROCEDURAL STATES 10/28/2018 KENYON SNYDER MD Ot C61 MALIGNANT NEOPLASM OF PROSTATE 10/28/2018 KENYON SNYDER MD, Ot C79.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 10/28/2018 KENYON SNYDER MD Ot 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 10/28/2018 IMMANUEL CAPPS, ISIAH E Ot 185 MALIGN NEOPL PROSTATE 10/28/2018 IMMANUEL CAPPS, ISIAH E Ot 185 MALIGN NEOPL PROSTATE 10/28/2018 IMMANUEL CAPPS, ISIAH E Ot V58.0 ENCOUNTER FOR RADIOTHERAPY 10/28/2018 KENYON SNYDER MD, Ot C79.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 10/28/2018 KENYON SNYDER MD Ot M19.011 PRIMARY OSTEOARTHRITIS, RIGHT SHOULDER 10/28/2018 KENYON SNYDER MD Ot M89.8X1 OTHER SPECIFIED DISORDERS OF BONE, SHOUL 10/28/2018 KENYON SNYDER MD Ot R42 DIZZINESS AND GIDDINESS 10/28/2018 KENYON SNYDER MD Ot Z85.46 PERSONAL HISTORY OF MALIGNANT NEOPLASM O 10/28/2018 KENYON SNYDER MD Ot Z95.1 PRESENCE OF AORTOCORONARY BYPASS GRAFT 10/28/2018 KENYON SNYDER MD Ot Z98.890 OTHER SPECIFIED POSTPROCEDURAL STATES 10/28/2018 KENYON SNYDER MD Ot C61 MALIGNANT NEOPLASM OF PROSTATE 10/28/2018 KENYON SNYDER MD, Ot C79.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 10/28/2018 KENYON SNYDER MD Ot 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 12/21/2018 IMMANUEL CAPPS, ISIAH [place] Ot 185 MALIGN NEOPL PROSTATE 12/21/2018 ISIAH GAMBINO MD Ot V58.0 ENCOUNTER FOR RADIOTHERAPY 12/21/2018 IMMANUEL CAPPS, ISIAH [place] Ot C61 MALIGNANT NEOPLASM OF PROSTATE 12/21/2018 ISIAH GAMBINO MD Ot C79.5 1 SECONDARY MALIGNANT NEOPLASM OF BONE 12/21/2018 KEE RN, JET C PROFESSOR OF NURSING Ot C61 MALIGNANT NEOPLASM OF PROSTATE 12/21/2018 KEE RN, JET C PROFESSOR OF NURSING Ot C79.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 12/21/2018 SINDY-RAMIN RN, JET C PROFESSOR OF NURSING Ot C61 MALIGNANT NEOPLASM OF PROSTATE 12/21/2018 KEE RN, JET C PROFESSOR OF NURSING Ot C79.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 12/21/2018 KEE RN, JET C PROFESSOR OF NURSING Ot C61 MALIGNANT NEOPLASM OF PROSTATE 12/21/2018 KEE RN, JET C PROFESSOR OF NURSING Ot C79.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 12/21/2018 HEATH HAYDENP Ot C 61 MALIGNANT NEOPLASM OF PROSTATE 12/21/2018 HEATH HAYDENP Ot C79.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 12/21/2018 HEATH HAYDENP Ot 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 12/21/2018 HEATH HAYDENP Ot I25.10 ATHSCL HEART DISEASE OF [place] CORONARY 12/21/2018 HEATH HAYDENP Ot N18.3 CHRONIC KIDNEY DISEASE, STAGE 3 (MODERAT 12/21/2018 HEATH HAYDENP Ot Z79.899 OTHER SKILLED NURSING (CURRENT) DRUG THERAPY 12/21/2018 HEATH HAYDEN Ot Z87.891 PERSONAL HISTORY OF NICOTINE DEPENDENCE 12/21/2018 HEATH HAYDENP Ot Z95.1 PRESENCE OF AORTOCORONARY BYPASS GRAFT 12/21/2018 HEATH HAYDENP Ot C 61 MALIGNANT NEOPLASM OF PROSTATE 12/21/2018 HEATH HAYDENP Ot C79.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 12/21/2018 HEATH HAYDEN PROFESSOR OF NURSING Ot R91.1 SOLITARY PULMONARY NODULE 12/21/2018 HAYDEN HEATH S PROFESSOR OF NURSING Ot R93.8 ABNORMAL FINDINGS ON DIAGNOSTIC IMAGING 12/21/2018 KENYON SNYDER MD, Ot C61 MALIGNANT NEOPLASM OF PROSTATE 12/21/2018 KENYON SNYDER MD, Ot C79.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 12/21/2018 KENYON SNYDER MD Ot K80.20 CALCULUS OF GALLBLADDER W/O CHOLECYSTITI 12/21/2018 KENYON SNYDER MD Ot C79.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 12/21/2018 KENYON SNYDER MD Ot M19.011 PRIMARY OSTEOARTHRITIS, RIGHT SHOULDER 12/21/2018 KENYON SNYDER MD Ot M89.8X1 OTHER SPECIFIED DISORDERS OF BONE, SHOUL 12/21/2018 KENYON SNYDER MD Ot R42 DIZZINESS AND GIDDINESS 12/21/2018 KENYON SNYDER MD Ot Z85.46 PERSONAL HISTORY OF MALIGNANT NEOPLASM O 12/21/2018 KENYON SNYDER MD Ot Z95.1 PRESENCE OF AORTOCORONARY BYPASS GRAFT 12/21/2018 KENYON SNYDER MD Ot Z98.890 OTHER SPECIFIED POSTPROCEDURAL STATES 12/21/2018 KENYON SNYDER MD Ot C61 MALIGNANT NEOPLASM OF PROSTATE 12/21/2018 KENYON SNYDER MD Ot C79.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 12/21/2018 KENYON SNYDER MD Ot Z79.899 OTHER SKILLED NURSING (CURRENT) DRUG THERAPY 12/21/2018 KENYON SNYDER MD Ot C61 MALIGNANT NEOPLASM OF PROSTATE 12/21/2018 KENYON SNYDER MD Ot C79.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 12/21/2018 KENYON SNYDER MD Ot 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 12/21/2018 KENYON SNYDER MD Ot C61 MALIGNANT NEOPLASM OF PROSTATE 12/21/2018 KENYON SNYDER MD Ot C79.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 12/21/2018 KENYON SNYDER MD Ot 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 01/06/2019 KENYON SNYDER MD Ot C61 MALIGNANT NEOPLASM OF PROSTATE 01/06/2019 KENYON SNYDER MD Ot C79.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 01/06/2019 KENYON SNYDER MD Ot Z79.899 OTHER SKILLED NURSING (CURRENT) DRUG THERAPY 02/09/2019 KENYON SNYDER MD Ot C61 MALIGNANT NEOPLASM OF PROSTATE 02/09/2019 KENYON SNYDER MD Ot C79.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 02/09/2019 KENYON SNYDER MD Ot Z79.899 OTHER SKILLED NURSING (CURRENT) DRUG THERAPY 02/14/2019 KENYON SNYDER MD, Ot C61 MALIGNANT NEOPLASM OF PROSTATE 02/14/2019 KENYON SNYDER MD Ot C79.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 02/14/2019 KENYON SNYDER MD Ot Z79.899 OTHER SKILLED NURSING (CURRENT) DRUG THERAPY 03/12/2019 KENYON SNYDER MD, Ot C61 MALIGNANT NEOPLASM OF PROSTATE 03/12/2019 KENYON SNYDER MD, Ot C79.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 03/12/2019 KENYON SNYDER MD, Ot D64.9 ANEMIA, UNSPECIFIED 03/12/2019 KENYON SNYDER MD Ot 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 03/12/2019 KENYON SNYDER MD Ot E78.00 PURE HYPERCHOLESTEROLEMIA, UNSPECIFIED 03/12/2019 KENYON SNYDER MD Ot F03.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 BEHAVIORAL 03/12/2019 KENYON SNYDER MD Ot G47.00 INSOMNIA, UNSPECIFIED 03/12/2019 KENYON SNYDER MD Ot I25.10 ATHSCL HEART DISEASE OF [place] CORONARY 03/12/2019 KENYON SNYDER MD, Ot M62.81 MUSCLE WEAKNESS (GENERALIZED) 03/12/2019 KENYON SNYDER MD Ot N18.4 CHRONIC KIDNEY DISEASE, STAGE 4 (SEVERE) 03/12/2019 KENYON SNYDER MD Ot R25.3 FASCICULATION 03/12/2019 KENYON SNYDER MD, Ot 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 03/14/2019 ISIAH GAMBINO MD, Ot 185 MALIGN NEOPL PROSTATE 03/14/2019 ISIAH GAMBINO MD Ot V58.0 ENCOUNTER FOR RADIOTHERAPY 03/14/2019 ISIAH GAMBINO MD, Ot C61 MALIGNANT NEOPLASM OF PROSTATE 03/14/2019 ISIAH GAMBINO MD, Ot C79.5 1 SECONDARY MALIGNANT NEOPLASM OF BONE 03/14/2019 KEE CARDENAS, JET LAMA Ot C61 MALIGNANT NEOPLASM OF PROSTATE 03/14/2019 KEE CARDENAS, JET LAMA Ot C79.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 03/14/2019 KEE RN, JET C PROFESSOR OF NURSING Ot C61 MALIGNANT NEOPLASM OF PROSTATE 03/14/2019 KEE RN, JET C PROFESSOR OF NURSING Ot C79.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 03/14/2019 KEE RN, JET C PROFESSOR OF NURSING Ot C61 MALIGNANT NEOPLASM OF PROSTATE 03/14/2019 KEE RN, JET C PROFESSOR OF NURSING Ot C79.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 03/14/2019 STEVO HAYDENDOM Birdie PROFESSOR OF NURSING Ot C 61 MALIGNANT NEOPLASM OF PROSTATE 03/14/2019 STEVO HAYDENDOM S PROFESSOR OF NURSING Ot C79.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 03/14/2019 STEVO HAYDENDOM Packer PROFESSOR OF NURSING Ot 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 03/14/2019 HEATH HAYDEN S PROFESSOR OF NURSING Ot I25.10 ATHSCL HEART DISEASE OF [place] CORONARY 03/14/2019 STEVO HAYDENDOM S PROFESSOR OF NURSING Ot N18.3 CHRONIC KIDNEY DISEASE, STAGE 3 (MODERAT 03/14/2019 HEATH HAYDEN S PROFESSOR OF NURSING Ot 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 03/14/2019 CATRACHO HEATH S PROFESSOR OF NURSING Ot Z87.891 PERSONAL HISTORY OF NICOTINE DEPENDENCE 03/14/2019 STEVO HAYDENDOM S PROFESSOR OF NURSING Ot Z95.1 PRESENCE OF AORTOCORONARY BYPASS GRAFT 03/14/2019 HEATH HAYDEN S PROFESSOR OF NURSING Ot C 61 MALIGNANT NEOPLASM OF PROSTATE 03/14/2019 HEATH HAYDEN S PROFESSOR OF NURSING Ot C79.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 03/14/2019 HEATH HAYDEN PROFESSOR OF NURSING Ot R91.1 SOLITARY PULMONARY NODULE 03/14/2019 HEATH HAYDEN S PROFESSOR OF NURSING Ot R93.8 ABNORMAL FINDINGS ON DIAGNOSTIC IMAGING 03/14/2019 KENYON SNYDER MD Ot C61 MALIGNANT NEOPLASM OF PROSTATE 03/14/2019 KENYON SNYDER MD, Ot C79.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 03/14/2019 KENYON SNYDER MD Ot K80.20 CALCULUS OF GALLBLADDER W/O CHOLECYSTITI 03/14/2019 KENYON SNYDER MD, Ot C79.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 03/14/2019 KENYON SNYDER MD Ot M19.011 PRIMARY OSTEOARTHRITIS, RIGHT SHOULDER 03/14/2019 KENYON SNYDER MD Ot M89.8X1 OTHER SPECIFIED DISORDERS OF BONE, SHOUL 03/14/2019 KENYON SNYDER MD Ot R42 DIZZINESS AND GIDDINESS 03/14/2019 KENYON SNYDER MD Ot Z85.46 PERSONAL HISTORY OF MALIGNANT NEOPLASM O 03/14/2019 KENYON SNYDER MD Ot Z95.1 PRESENCE OF AORTOCORONARY BYPASS GRAFT 03/14/2019 KENYON SNYDER MD, Ot Z98.890 OTHER SPECIFIED POSTPROCEDURAL STATES 03/14/2019 KENYON SNYDER MD, Ot C61 MALIGNANT NEOPLASM OF PROSTATE 03/14/2019 KENYON SNYDER MD Ot C79.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 03/14/2019 KENYON SNYDER MD, Ot Z79.899 OTHER SKILLED NURSING (CURRENT) DRUG THERAPY 03/14/2019 KENYON SNYDER MD, Ot C61 MALIGNANT NEOPLASM OF PROSTATE 03/14/2019 KENYON SNYDER MD, Ot C79.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 03/14/2019 KENYON SNYDER MD Ot D64.9 ANEMIA, UNSPECIFIED 03/14/2019 KENYON SNYDER MD Ot 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 03/14/2019 KENYON SNYDER MD Ot E78.00 PURE HYPERCHOLESTEROLEMIA, UNSPECIFIED 03/14/2019 KENYON SNYDER MD Ot F03.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 BEHAVIORAL 03/14/2019 KENYON SNYDER MD, Ot G47.00 INSOMNIA, UNSPECIFIED 03/14/2019 KENYON SNYDER MD Ot I25.10 ATHSCL HEART DISEASE OF [place] CORONARY 03/14/2019 KENYON SNYDER MD Ot M62.81 MUSCLE WEAKNESS (GENERALIZED) 03/14/2019 KENYON SNYDER MD Ot N18.4 CHRONIC KIDNEY DISEASE, STAGE 4 (SEVERE) 03/14/2019 KENYON SNYDER MD Ot R25.3 FASCICULATION 03/14/2019 KENYON SNYDER MD Ot 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 03/15/2019 KENYON SNYDER MD, Ot C61 MALIGNANT NEOPLASM OF PROSTATE 03/15/2019 KENYON SNYDER MD, Ot C79.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 03/15/2019 KENYON SNYDER MD, Ot 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 03/15/2019 ISIAH GAMBINO MD, Ot 185 MALIGN NEOPL PROSTATE 03/15/2019 ISIAH GAMBINO MD, Ot V58.0 ENCOUNTER FOR RADIOTHERAPY 03/15/2019 IMMANUEL CAPPS, ISIAH [place] Ot C61 MALIGNANT NEOPLASM OF PROSTATE 03/15/2019 IMMANUEL CAPPS, ISIAH [place] Ot C79.5 1 SECONDARY MALIGNANT NEOPLASM OF BONE 03/15/2019 KEE RN, JET C PROFESSOR OF NURSING Ot C61 MALIGNANT NEOPLASM OF PROSTATE 03/15/2019 KEE RN, JET C PROFESSOR OF NURSING Ot C79.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 03/15/2019 SINDY-RAMIN RN, JET C PROFESSOR OF NURSING Ot C61 MALIGNANT NEOPLASM OF PROSTATE 03/15/2019 KEE RN, JET C PROFESSOR OF NURSING Ot C79.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 03/15/2019 SINDY-RAMIN RN, JET C PROFESSOR OF NURSING Ot C61 MALIGNANT NEOPLASM OF PROSTATE 03/15/2019 KEE RN, JET C PROFESSOR OF NURSING Ot C79.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 03/15/2019 HEATH HAYDEN PROFESSOR OF NURSING Ot C 61 MALIGNANT NEOPLASM OF PROSTATE 03/15/2019 HEATH HAYDEN PROFESSOR OF NURSING Ot C79.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 03/15/2019 HEATH HAYDEN PROFESSOR OF NURSING Ot 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 03/15/2019 HEATH HAYDEN PROFESSOR OF NURSING Ot I25.10 ATHSCL HEART DISEASE OF [place] CORONARY 03/15/2019 HEATH HAYDEN PROFESSOR OF NURSING Ot N18.3 CHRONIC KIDNEY DISEASE, STAGE 3 (MODERAT 03/15/2019 HEATH HAYDEN S PROFESSOR OF NURSING Ot 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 03/15/2019 HEATH HAYDEN PROFESSOR OF NURSING Ot Z87.891 PERSONAL HISTORY OF NICOTINE DEPENDENCE 03/15/2019 HEATH HAYDEN S PROFESSOR OF NURSING Ot Z95.1 PRESENCE OF AORTOCORONARY BYPASS GRAFT 03/15/2019 HEATH HAYDEN S PROFESSOR OF NURSING Ot C 61 MALIGNANT NEOPLASM OF PROSTATE 03/15/2019 HEATH HAYDEN PROFESSOR OF NURSING Ot C79.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 03/15/2019 HEATH HAYDEN S PROFESSOR OF NURSING Ot R91.1 SOLITARY PULMONARY NODULE 03/15/2019 HEATH HAYDEN PROFESSOR OF NURSING Ot R93.8 ABNORMAL FINDINGS ON DIAGNOSTIC IMAGING 03/15/2019 KENYON SNYDER MD Ot C61 MALIGNANT NEOPLASM OF PROSTATE 03/15/2019 KENYON SNYDER MD Ot C79.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 03/15/2019 KENYON SNYDER MD Ot K80.20 CALCULUS OF GALLBLADDER W/O CHOLECYSTITI 03/15/2019 KENYON SNYDER MD, Ot C79.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 03/15/2019 KENYON SNYDER MD Ot M19.011 PRIMARY OSTEOARTHRITIS, RIGHT SHOULDER 03/15/2019 KENYON SNYDER MD Ot M89.8X1 OTHER SPECIFIED DISORDERS OF BONE, SHOUL 03/15/2019 KENYON SNYDER MD Ot R42 DIZZINESS AND GIDDINESS 03/15/2019 KENYON SNYDER MD Ot Z85.46 PERSONAL HISTORY OF MALIGNANT NEOPLASM O 03/15/2019 KENYON SNYDER MD, Ot Z95.1 PRESENCE OF AORTOCORONARY BYPASS GRAFT 03/15/2019 KENYON SNYDER MD, Ot Z98.890 OTHER SPECIFIED POSTPROCEDURAL STATES 03/15/2019 KENYON SNYDER MD Ot C61 MALIGNANT NEOPLASM OF PROSTATE 03/15/2019 KENYON SNYDER MD, Ot C79.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 03/15/2019 KENYON SNYDER MD Ot 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 03/16/2019 KENYON SNYDER MD Ot C61 MALIGNANT NEOPLASM OF PROSTATE 03/16/2019 KENYON SNYDER MD Ot C79.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 03/16/2019 KENYON SNYDER MD Ot Z79.899 OTHER SKILLED NURSING (CURRENT) DRUG THERAPY 04/11/2019 KENYON SNYDER MD Ot C61 MALIGNANT NEOPLASM OF PROSTATE 04/11/2019 KENYON SNYDER MD Ot C79.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 04/11/2019 KENYON SNYDER MD Ot 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 06/07/2019 KENYON SNYDER MD Ot C61 MALIGNANT NEOPLASM OF PROSTATE 06/07/2019 KENYON SNYDER MD Ot C79.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 06/07/2019 KENYON SNYDER MD Ot Z79.899 OTHER SKILLED NURSING (CURRENT) DRUG THERAPY 06/07/2019 ISIAH GAMBINO MD Ot 185 MALIGN NEOPL PROSTATE 06/07/2019 ISIAH GAMBINO MD Ot V58.0 ENCOUNTER FOR RADIOTHERAPY 06/07/2019 ISIAH GAMBINO MD, Ot C61 MALIGNANT NEOPLASM OF PROSTATE 06/07/2019 GAMBINO MD, ISIAH E Ot C79.5 1 SECONDARY MALIGNANT NEOPLASM OF BONE 06/07/2019 KEE RN, JET C PROFESSOR OF NURSING Ot C61 MALIGNANT NEOPLASM OF PROSTATE 06/07/2019 KEE RN, JET C PROFESSOR OF NURSING Ot C79.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 06/07/2019 KEE RN, JET C PROFESSOR OF NURSING Ot C61 MALIGNANT NEOPLASM OF PROSTATE 06/07/2019 KEE RN, JET C PROFESSOR OF NURSING Ot C79.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 06/07/2019 KEE RN, JET C PROFESSOR OF NURSING Ot C61 MALIGNANT NEOPLASM OF PROSTATE 06/07/2019 KEE RN, JET C PROFESSOR OF NURSING Ot C79.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 06/07/2019 HEATH HAYDEN PROFESSOR OF NURSING Ot C 61 MALIGNANT NEOPLASM OF PROSTATE 06/07/2019 HEATH HAYDENP Ot C79.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 06/07/2019 HEATH HAYDENP Ot 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 06/07/2019 HEATH HAYDEN PROFESSOR OF NURSING Ot I25.10 ATHSCL HEART DISEASE OF [place] CORONARY 06/07/2019 HEATH HAYDEN PROFESSOR OF NURSING Ot N18.3 CHRONIC KIDNEY DISEASE, STAGE 3 (MODERAT 06/07/2019 HEATH HAYDEN PROFESSOR OF NURSING Ot Z79.899 OTHER SKILLED NURSING (CURRENT) DRUG THERAPY 06/07/2019 HEATH HAYDEN PROFESSOR OF NURSING Ot Z87.891 PERSONAL HISTORY OF NICOTINE DEPENDENCE 06/07/2019 HEATH HAYDENP Ot Z95.1 PRESENCE OF AORTOCORONARY BYPASS GRAFT 06/07/2019 HEATH HAYDEN PROFESSOR OF NURSING Ot C 61 MALIGNANT NEOPLASM OF PROSTATE 06/07/2019 HEATH HAYDENP Ot C79.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 06/07/2019 HEATH HAYDENP Ot R91.1 SOLITARY PULMONARY NODULE 06/07/2019 HEATH HAYDENP Ot R93.8 ABNORMAL FINDINGS ON DIAGNOSTIC IMAGING 06/07/2019 KENYON SNYDER MD Ot C61 MALIGNANT NEOPLASM OF PROSTATE 06/07/2019 KENYON SNYDER MD Ot C79.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 06/07/2019 KENYON SNYDER MD Ot K80.20 CALCULUS OF GALLBLADDER W/O CHOLECYSTITI 06/07/2019 KENYON SNYDER MD Ot C79.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 06/07/2019 KENYON SNYDER MD Ot M19.011 PRIMARY OSTEOARTHRITIS, RIGHT SHOULDER 06/07/2019 KENYON SNYDER MD Ot M89.8X1 OTHER SPECIFIED DISORDERS OF BONE, SHOUL 06/07/2019 KENYON SNYDER MD Ot R42 DIZZINESS AND GIDDINESS 06/07/2019 KENYON SNYDER MD Ot Z85.46 PERSONAL HISTORY OF MALIGNANT NEOPLASM O 06/07/2019 KENYON SNYDER MD Ot Z95.1 PRESENCE OF AORTOCORONARY BYPASS GRAFT 06/07/2019 KENYON SNYDER MD Ot Z98.890 OTHER SPECIFIED POSTPROCEDURAL STATES 06/07/2019 KENYON SNYDER MD, Ot C61 MALIGNANT NEOPLASM OF PROSTATE 06/07/2019 KENYON SNYDER MD Ot C79.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 06/07/2019 KENYON SNYDER MD Ot 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 06/07/2019 RAMONA ROBERT Ot C61 MALIGNANT NEOPLASM OF PROSTATE 06/07/2019 RAMONA ROBERT Ot C79.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 06/12/2019 KENYON SNYDER MD Ot C61 MALIGNANT NEOPLASM OF PROSTATE 06/12/2019 KENYON SNYDER MD Ot C79.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 06/12/2019 KENYON SNYDER MD Ot Z79.899 OTHER SKILLED NURSING (CURRENT) DRUG THERAPY 06/13/2019 KENYON SNYDER MD Ot C61 MALIGNANT NEOPLASM OF PROSTATE 06/13/2019 KENYON SNYDER MD Ot C79.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 06/13/2019 KENYON SNYDER MD Ot 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 06/29/2019 RAMONA ROBERT Ot C61 MALIGNANT NEOPLASM OF PROSTATE 06/29/2019 RAMONA ROBERT Ot C79.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 09/17/2019 KENYON SNYDER MD Ot C61 MALIGNANT NEOPLASM OF PROSTATE 09/17/2019 KENYON SNYDER MD Ot C79.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 09/17/2019 KENYON SNYDER MD Ot Z79.899 OTHER SKILLED NURSING (CURRENT) DRUG THERAPY 10/13/2019 KENYON SNYDER MD Ot C61 MALIGNANT NEOPLASM OF PROSTATE 10/13/2019 KENYON SNYDER MD Ot C79.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 10/13/2019 KENYON SNYDER MD Ot Z79.899 OTHER SKILLED NURSING (CURRENT) DRUG THERAPY 11/26/2019 KENYON SNYDER MD Ot C61 MALIGNANT NEOPLASM OF PROSTATE 11/26/2019 KENYON SNYDER MD Ot C79.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 11/26/2019 KENYON SNYDER MD Ot 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 11/27/2019 KENYON SNYDER MD Ot C61 MALIGNANT NEOPLASM OF PROSTATE 11/27/2019 KENYON SNYDER MD Ot C79.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 11/27/2019 KENYON SNYDER MD Ot Z79.899 OTHER SKILLED NURSING (CURRENT) DRUG THERAPY 11/29/2019 ISIAH GAMBINO MD Ot 185 MALIGN NEOPL PROSTATE 11/29/2019 ISIAH GAMBINO MD Ot V58.0 ENCOUNTER FOR RADIOTHERAPY 11/29/2019 ISIAH GAMBINO MD Ot C61 MALIGNANT NEOPLASM OF PROSTATE 11/29/2019 ISIAH GAMBINO MD E Ot C79.5 1 SECONDARY MALIGNANT NEOPLASM OF BONE 11/29/2019 KEE RN, JET C PROFESSOR OF NURSING Ot C61 MALIGNANT NEOPLASM OF PROSTATE 11/29/2019 KEE RN, JET C PROFESSOR OF NURSING Ot C79.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 11/29/2019 SINDY-RAMIN RN, JET C PROFESSOR OF NURSING Ot C61 MALIGNANT NEOPLASM OF PROSTATE 11/29/2019 KEE RN, JET C PROFESSOR OF NURSING Ot C79.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 11/29/2019 SINDY-RAMIN RN, JET C PROFESSOR OF NURSING Ot C61 MALIGNANT NEOPLASM OF PROSTATE 11/29/2019 KEE RN, JET C PROFESSOR OF NURSING Ot C79.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 11/29/2019 HEATH HAYDEN PROFESSOR OF NURSING Ot C 61 MALIGNANT NEOPLASM OF PROSTATE 11/29/2019 HEATH HAYDEN PROFESSOR OF NURSING Ot C79.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 11/29/2019 HEATH HAYDEN PROFESSOR OF NURSING Ot 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 11/29/2019 HEATH HAYDEN PROFESSOR OF NURSING Ot I25.10 ATHSCL HEART DISEASE OF [place] CORONARY 11/29/2019 HAYDEN, HILAH S PROFESSOR OF NURSING Ot N18.3 CHRONIC KIDNEY DISEASE, STAGE 3 (MODERAT 11/29/2019 HEATH HAYDEN PROFESSOR OF NURSING Ot 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 11/29/2019 HEATH HAYDENP Ot Z87.891 PERSONAL HISTORY OF NICOTINE DEPENDENCE 11/29/2019 HEATH HAYDEN PROFESSOR OF NURSING Ot Z95.1 PRESENCE OF AORTOCORONARY BYPASS GRAFT 11/29/2019 HEATH HAYDEN PROFESSOR OF NURSING Ot C 61 MALIGNANT NEOPLASM OF PROSTATE 11/29/2019 HEATH HAYDEN PROFESSOR OF NURSING Ot C79.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 11/29/2019 HEATH HAYDEN PROFESSOR OF NURSING Ot R91.1 SOLITARY PULMONARY NODULE 11/29/2019 HEATH HAYDEN PROFESSOR OF NURSING Ot R93.8 ABNORMAL FINDINGS ON DIAGNOSTIC IMAGING 11/29/2019 KENYON SNYDER MD Ot C61 MALIGNANT NEOPLASM OF PROSTATE 11/29/2019 KENYON SNYDER MD, Ot C79.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 11/29/2019 KENYON SNYDER MD Ot K80.20 CALCULUS OF GALLBLADDER W/O CHOLECYSTITI 11/29/2019 KENYON SNYDER MD Ot C79.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 11/29/2019 KENYON SNYDER MD Ot M19.011 PRIMARY OSTEOARTHRITIS, RIGHT SHOULDER 11/29/2019 KENYON SNYDER MD Ot M89.8X1 OTHER SPECIFIED DISORDERS OF BONE, SHOUL 11/29/2019 KENYON SNYDER MD Ot R42 DIZZINESS AND GIDDINESS 11/29/2019 KENYON SNYDER MD Ot Z85.46 PERSONAL HISTORY OF MALIGNANT NEOPLASM O 11/29/2019 KENYON SNYDER MD Ot Z95.1 PRESENCE OF AORTOCORONARY BYPASS GRAFT 11/29/2019 KENYON SNYDER MD Ot Z98.890 OTHER SPECIFIED POSTPROCEDURAL STATES 11/29/2019 RAMONA ROBERT N Ot C61 MALIGNANT NEOPLASM OF PROSTATE 11/29/2019 RAMONA ROBERT N Ot C79.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 11/29/2019 Ot C61 MALIGN ANT NEOPLASM OF PROSTATE 11/29/2019 Ot C79.51 SEC ONDARY MALIGNANT NEOPLASM OF BONE 11/29/2019 Ot Z79.899 OT HER 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) DRUG THERAPY 11/30/2019 KENYON SNYDER MD Ot C61 MALIGNANT NEOPLASM OF PROSTATE 11/30/2019 KENYON SNYDER MD, Ot C79.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 11/30/2019 KENYON SNYDER MD Ot G31.9 DEGENERATIVE DISEASE OF NERVOUS SYSTEM, 11/30/2019 KENYON SNYDER MD, Ot R41.0 DISORIENTATION, UNSPECIFIED 12/01/2019 KENYON SNYDER MD, Ot C61 MALIGNANT NEOPLASM OF PROSTATE 12/01/2019 KENYON SNYDER MD, Ot C79.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 12/01/2019 KENYON SNYDER MD Ot 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 12/27/2019 KENYON SNYDER MD, Ot C61 MALIGNANT NEOPLASM OF PROSTATE 12/27/2019 KENYON SNYDER MD, Ot C79.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 12/27/2019 KENYON SNYDER MD, Ot G31.9 DEGENERATIVE DISEASE OF NERVOUS SYSTEM, 12/27/2019 KENYON SNYDER MD, Ot R41.0 DISORIENTATION, UNSPECIFIED Procedures There is no data. Results Test Result Range Complete blood count (CBC) with automate d white blood cell (WBC) differential - 06/10/18 14:30 Blood leukocytes automated count (number/volume) 7.3 10*3/uL 4.3-11.0 Blood erythrocytes automated count (number/volume) 3.49 10*6/uL 4.35-5.85 Venous blood hemoglobin measurement (mass/volume) 11.7 g/dL 13.3-17.7 Blood hematocrit (volume fraction) 34 % 40-54 Automated erythrocyte mean corpuscular volume 96 [ foz_us] 80-99 Automated erythrocyte mean corpuscular h emoglobin (mass per erythrocyte) 34 pg 25-34 Automated erythrocyte mean corpuscular h emoglobin concentration measurement (mass/volume) 35 g/dL 32-36 Automated erythrocyte distribution width ratio 13. 1 % 10.0- 14.5 Automated blood platelet count (count/volume) 263 10*3/uL 130-400 Automated blood platelet mean volume measurement 9.4 [foz_us] 7.4-10.4 Automated blood neutrophils/100 leukocytes 72 % 42-75 Automated blood lymphocytes/100 leukocytes 17 % 12-44 Blood monocytes/100 leukocytes 7 % 0-12 Automated blood eosinophils/100 leukocytes 5 % 0-10 Automated blood basophils/100 leukocytes 0 % 0-10 Blood neutrophils automated count (number/volume) 5.2 10*3 1.8-7.8 Blood lymphocytes automated count (number/volume) 1.2 10*3 1.0-4.0 Blood monocytes automated count (number/volume) 0. 5 10*3 0.0-1.0 Automated eosinophil count 0.3 10*3/uL 0 .0-0.3 Automated blood basophil count (count/volume) 0.0 10*3/uL 0.0-0.1 Comprehensive metabolic panel - 06/10/18 14:30 Serum or plasma sodium measurement (moles/volume) 139 mmol/L 135-145 Serum or plasma potassium measurement (moles/volume) 5.2 mmol/L 3.6-5.0 Serum or plasma chloride measurement (moles/volume) 113 mmol/L 98-107 Carbon dioxide 17 mmol/L 21-32 Serum or plasma anion gap determination (moles/volume) 9 mmol/L 5-14 Serum or plasma urea nitrogen measurement (mass/volume ) 57 mg/dL 7-18 Serum or plasma creatinine measurement (mass/volume) 2.86 mg/dL 0.60-1.30 Serum or plasma urea nitrogen/creatinine mass ratio 20 NRG Serum or plasma creatinine measurement w ith calculation of estimated glomerular filtration rate 21 NRG Serum or plasma glucose measurement (mass/volume) 128 mg/dL 70-105 Serum or plasma calcium measurement (mass/volume) 9.7 mg/dL 8.5-10.1 Serum or plasma total bilirubin measurement (mass/volu me) 0.4 mg/dL 0.1-1.0 Serum or plasma alkaline phosphatase annmarie surement (enzymatic activity/volume) 57 U/L 40-136 Serum or plasma aspartate aminotransfera se measurement (enzymatic activity/volume) 16 U/L 5-34 Serum or plasma alanine aminotransferase measurement (enzymatic activity/volume) 15 U/L 0-55 Serum or plasma protein measurement (mass/volume) 7.3 g/dL 6.4-8.2 Serum or plasma albumin measurement (mass/volume) 4.1 g/dL 3.2-4.5 CALCIUM CORRECTED 9.6 mg/dL 8.5-10.1 Lipase - 06/10/18 14:30 Lipase 106 U/L 8-78 Complete urinalysis with reflex to cultu re - 06/10/18 14:55 Urine color determination YELLOW NRG Urine clarity determination CLEAR NR G Urine pH measurement by test strip 5 5-9 Specific gravity of urine by test strip 1.015 1.016-1.022 Urine protein assay by test strip, semi-quantitative 3+ NEGATIVE Urine glucose detection by automated test strip NE GATIVE NEGATIVE Erythrocytes detection in urine sediment by light micr oscopy NEGATIVE NEGATIVE Urine ketones detection by automated test strip NE GATIVE NEGATIVE Urine nitrite detection by test strip NEGATIVE NEGATIVE Urine total bilirubin detection by test strip NEGA TIVE NEGATIVE Urine urobilinogen measurement by automated test strip (mass/volume) NORMAL NORMAL Urine leukocyte esterase detection by dipstick NEG ATIVE NEGATIVE Automated urine sediment erythrocyte cou nt by microscopy (number/high power field) NONE NRG Automated urine sediment leukocyte count by microscopy (number/high power field) [HPF] NRG Bacteria detection in urine sediment by light microsco py FEW NRG Squamous epithelial cells detection in u rine sediment by light microscopy 0-2 NRG Crystals detection in urine sediment by light microsco py NONE NRG Casts detection in urine sediment by light microscopy PRESENT NRG Mucus detection in urine sediment by light microscopy NEGATIVE NRG Complete urinalysis with reflex to culture NO NRG Hyaline casts detection in urine sediment by light ila roscopy 0-2 NRG Bacterial urine culture - 06/10/18 14:55 Bacterial urine culture NG NRG Encounters ACCT No. Visit Date/Time Discharge Status Pt. Type Provider Facility Loc./Unit Complaint [id number] 11/29/2019 10:11:00 23:59:59 CLS Outpatient KENYON SNYDER MD [facility] RAD CANCER OF PROSTATE,CANC ER METASTATIC TO BONE,CONFU [id number] 11/23/2019 13:20:00 020 00:01:00 DIS Outpatient KENYON SNYDER MD, [facility] ONC [id number] 06/07/2019 13:31:00 00:01:00 DIS Outpatient KENYON SNYDER MD, [facility] ONC [id number] 06/05/2019 10:40:00 23:59:59 CLS Outpatient RAMONA ROBETR [facility] RAD LUMBAR PAIN [id number] 12/21/2018 12:54:00 05/26/2 019 00:01:00 DIS Outpatient KENYON SNYDRE MD, V [facility] ONC [id number] 09/29/2018 15:14:00 019 00:01:00 DIS Outpatient KENYON SNYDER MD, [facility] ONC [id number] 07/07/2018 13:15:00 018 13:42:00 DIS Outpatient KENYON SNYDER MD, [facility] ONC [id number] 06/10/2018 14:15:00 018 16:00:00 DIS Emergency MORGANJESS CHUCKING LATHE OPERATOR [facility] ER BACK/ABD PAIN DIZZINESS [id number] 06/09/2018 15:12:00 018 23:59:59 CLS Outpatient KENYON SNYDER MD, [facility] RAD M25.519 [id number] 06/07/2018 08:49:00 018 13:58:00 DIS Outpatient KENYON SNYDER MD, V [facility] ONC [id number] 04/14/2018 13:58:00 018 00:01:00 DIS Outpatient KENYON SNYDER MD, V [facility] ONC [id number] 02/03/2018 09:53:00 018 23:59:59 CLS Outpatient KENYON SNYDER MD, [facility] RAD CANCER OF PROSTATE [id number] 10/25/2017 13:39:00 018 00:01:00 DIS Outpatient RAMONA ROBERT [facility] ONC [id number] 05/25/2017 09:28:00 017 00:01:00 DIS Outpatient RAMONA ROBERT [facility] ONC [id number] 02/17/2017 14:40:00 017 00:01:00 DIS Outpatient RAMONA ROBERT [facility] ONC [id number] 11/19/2016 14:47:00 017 00:01:00 DIS Outpatient RAMONA ROBERT [facility] ONC [id number] 06/24/2016 14:10:00 10:21:00 DIS Outpatient RAMONA ROBERT V [facility] ONC [id number] 06/26/2016 11:14:00 23:59:59 CLS Outpatient HEATH HAYDEN PROFESSOR OF NURSING [facility] RAD ABNORMAL CHEST XR [id number] 05/28/2016 14:02:00 23:59:59 CLS Outpatient HEATH HAYDEN PROFESSOR OF NURSING [facility] ONC [id number] 03/05/2016 08:36:00 00:01:00 DIS Outpatient RAMONA ROBERT V [facility] ONC [id number] 12/12/2015 09:16:00 23:59:59 CLS Outpatient HEATH HAYDEN PROFESSOR OF NURSING [facility] ONC [id number] 09/19/2015 08:39:00 23:59:59 CLS Outpatient RAMONA ROBERT V [facility] ONC [id number] 08/27/2015 09:16:00 23:59:59 CLS Outpatient JET SWEET RN [facility] RAD PROSTRATE CA MIRZA NE METS [id number] 08/15/2015 12:49:00 23:59:59 CLS Outpatient JET SWEET RN [facility] CARD PROSTATE CA [id number] 08/15/2015 11:18:00 23:59:59 CLS Outpatient JET SWEET RN [facility] ONC [id number] 08/05/2015 08:46:00 23:59:59 CLS Outpatient ISIAH GAMBINO MD [facility] ONC [id number] 12/24/2014 09:12:00 00:01:00 DIS Outpatient ISIAH GAMBINO MD [facility] ONC [id number] 10/22/2014 08:24:00 015 23:59:59 CLS Outpatient ISIAH GAMBINO MD [facility] ONC [id number] 04/04/2013 08:24:00 013 23:59:59 CLS Outpatient ISIAH GAMBINO MD [facility] ONC [id number] 11/27/2019 00:00:00 Document Registration [id number] 10/04/2012 08:46:00 Document Registration [id number] 04/11/2012 08:12:00 Document Registration [id number] 10/05/2011 09:13:00 Document Registration [id number] 08/10/2011 15:34:00 Document Registration
--- NOTE | 2020-01-20 08:44 | ED Fever ---
History of Present Illness General Chief Complaint: Respiratory Problems Stated Complaint: FEVER Source: old records (SINGLE ER VISIT 05/2018), other (DAUGHTER HAS GIVEN INFORMATION VIA PHONE TO RN) Exam Limitations: other (PT IS NOT TALKING OR FOLLOWING COMMANDS) History of Present Illness Date Seen by Provider: Jan 20, 2020 Time Seen by Provider: 08:15 Initial Comments PT ARRIVES VIA POV FROM HOME IN PARLIER, DAUGHTER BROUGHT HIM, PT LIVES AT HOME WITH PT REQUIRES FULL ASSIST OUT OF VEHICLE--DAUGHTER REPORTED THAT SHE HAD TO GET 6 PEOPLE TO HELP GET HIM OUT OF THE HOUSE AND INTO THE CAR. PT REPORTEDLY BEGAN RUNNING FEVER LAST NIGHT--TEMP IS UNKNOWN PT NOTED TO HAVE SHORTNESS OF BREATH --SINCE LAST NIGHT PT HAS BEEN LETHARGIC SINCE LAST NIGHT INCREASED CONFUSION TODAY Wednesday01/16/20 HE WAS ABLE TO WALK WITH WALKER FELL LAST Wednesday01/13/20 AND HAS GOTTEN PROGRESSIVELY WEAKER SINCE THEN DID NOT HIT HEAD OR HAVE LOSS OF CONSCIOUSNESS DID NOT TRIP, ETC--"HIS LEGS JUST GOT WEAK" CAUSE FOR FALL DAUGHTER REPORTS THAT "URINE IS AWFUL" IS UNKNOWN IF HE HAS HAD COUGH OR CHEST PAIN PT HAS LASIX AND POTASSIUM-SUPPOSED TO TAKE TID, BUT HAS NOT TAKEN ANY FOR THE LAST WEEK, HE HAS NOT HAD SIGNIFICANT SWELLING. 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 PCP: UNKNOWN DR. BAN WEBSTER ONCOLOGIST: DR. SNYDER Allergies and Home Medications Allergies Coded Allergies: No Known Drug Allergies (Unverified , 08/22/15) Home Medications Lorazepam 2 Mg/1 Ml Oral.conc, 2 MG PO Q2H PRN for AGITATION Prescribed by: SOFIA BAKER on 01/20/201710 Morphine Sulfate 100 Mg/5 Ml Solution, 10 MG PO Q2H PRN for PAIN Prescribed by: SOFIA BAKER on 01/20/201710 Ondansetron 8 Mg Tab.rapdis, 8 MG PO Q6H PRN for NAUSEA/VOMITING Prescribed by: JESS MORGAN on 06/10/18 1540 Patient Home Medication List Home Medication List Reviewed: Yes Review of Systems Review of Systems Constitutional: see HPI, fever, malaise, weakness Respiratory: short of breath Psychiatric/Neurological: See HPI Past Sdoxspo-Faxtej-Noctbv Hx Past Med/Social Hx: Reviewed and Corrections made Patient Social History Alcohol Use: Denies Use Smoking Status: Former Smoker (QUIT 1987) Type Used: Cigarettes 2nd Hand Smoke Exposure: No Recent Hopitalizations: No Seasonal Allergies Seasonal Allergies: No Past Medical History Surgeries: Yes Cardiac, CABG Respiratory: No Cardiac: Yes (?CHF ?) Chronic Edema/Swelling, Coronary Artery Disease Neurological: Yes Dementia Genitourinary: Yes (METASTATIC PROSTATE CANCER) Kidney Stones, Renal Failure Gastrointestinal: Yes (GALLSTONES, KIDNEY STONES, DIVERTICULOSIS NOTED ON CT 05/2018) Diverticulosis, Gall Bladder Disease Musculoskeletal: Yes (BONE METS FROM PROSTATE CANCER) Endocrine: No HEENT: No Cancer: Yes (METASTATIC PROSTATE CANCER TO BONE) Prostate Did You Recieve Any Treatments: Yes What Type of Treatment Did You: Chemotherapy, Radiation Psychosocial: No Integumentary: No Physical Exam Vital Signs - First Documented 01/20/20 01/20/20 08:09 08:10 Temp 37.8 Pulse 141 Resp 30 B/P (MAP) 106/96 (99) Pulse Ox 98 O2 Delivery Room Air O2 Flow Rate 2.00 Capillary Refill : Height: 5'10.00" Weight: 214lbs. 0oz. 97.925443qc; BMI Method:Stated General Appearance: mild distress, other (MILDLY DYSPNIC, VERY LETHARGIC--NOT TALKING OR FOLLOWING COMMANDS, BUT DOES PULL AWAY AND MUTTER UNINTELLIGIBLE WORDS ON OBTAINING NASAL AND THROAT SWABS. ) HEENT: other (EDENTULOUS, ORAL MUCOSA VERY DRY) Respiratory: decreased breath sounds (IN BASES), other (TACHYPNEIC, RESPIRATIONS MILDLY LABORED) Cardiovascular: no JVD, no murmur, tachycardia (140'S) Gastrointestinal: non tender, soft Extremities: normal inspection, no pedal edema, normal capillary refill Neurologic/Psychiatric: other (KEEPS EYES CLOSED, VERY LETHARGIC, DOES RESPOND TO PAIN, DOES NOT FOLLOW COMMANDS OR ANSWER ANY QUESTIONS. ) Skin: normal color, warm/dry (VERY WARM); No rash; other (DECREASED TURGOR) Focused Exam Lactate Level 01/20/20 08:22: Lactic Acid Level 1.15 Lactic Acid Level Laboratory Tests Test 01/20/20 08:22 Lactic Acid Level 1.15 MMOL/L (0.50-2.00) Progress/Results/Core Measures Suspected Sepsis SIRS Temperature: Pulse: Respiratory Rate: Laboratory Tests 01/20/20 08:22: White Blood Count 17.4H Blood Pressure / Mean: 01/20/20 08:22: Lactic Acid Level 1.15 Laboratory Tests 01/20/20 08:22: Creatinine 8.23H, INR Comment 1.5H, Platelet Count 428H, Total Bilirubin 0.3 Results/Orders Lab Results Laboratory Tests Test 01/20/20 08:21 01/20/20 08:22 01/20/20 08:49 01/20/20 08:55 Range/Units Ferritin 1402.1 H 32.0-356.0 ng/mL White Blood Count 17.4 H 4.3-11.0 10^3/uL Red Blood Count 2.79 L 4.35-5.85 10^6/uL Hemoglobin 9.2 L 13.3-17.7 G/DL Hematocrit 27 L 40-54 % Mean Corpuscular Volume 96 80-99 FL Mean Corpuscular Hemoglobin 33 25-34 PG Mean Corpuscular Hemoglobin Concent 34 32-36 G/DL Red Cell Distribution Width 13.6 10.0-14.5 % Platelet Count 428 H 130-400 10^3/uL Mean Platelet Volume 9.8 7.4-10.4 FL Neutrophils (%) (Auto) 94 H 42-75 % Lymphocytes (%) (Auto) 2 L 12-44 % Monocytes (%) (Auto) 5 0-12 % Eosinophils (%) (Auto) 0 0-10 % Basophils (%) (Auto) 0 0-10 % Neutrophils # (Auto) 16.2 H 1.8-7.8 X 10^3 Lymphocytes # (Auto) 0.3 L 1.0-4.0 X 10^3 Monocytes # (Auto) 0.8 0.0-1.0 X 10^3 Eosinophils # (Auto) 0.0 0.0-0.3 10^3/uL Basophils # (Auto) 0.0 0.0-0.1 10^3/uL Neutrophils % (Manual) 91 % Lymphocytes % (Manual) 1 % Monocytes % (Manual) 2 % Eosinophils % (Manual) 0 % Basophils % (Manual) 0 % Band Neutrophils 6 % Blood Morphology Comment NORMAL Erythrocyte Sedimentation Rate > 140 H 0-30 MM/HR Prothrombin Time 18.9 H 12.2-14.7 SEC INR Comment 1.5 H 0.8-1.4 Activated Partial Thromboplast Time 59 H 24-35 SEC D-Dimer 11.83 H 0.00-0.49 UG/ML Sodium Level 138 135-145 MMOL/L Potassium Level 4.8 3.6-5.0 MMOL/L Chloride Level 112 H 98-107 MMOL/L Carbon Dioxide Level 5 *L 21-32 MMOL/L Anion Gap 21 H 5-14 MMOL/L Blood Urea Nitrogen 153 *H 7-18 MG/DL Creatinine 8.23 H 0.60-1.30 MG/DL Estimat Glomerular Filtration Rate 6 BUN/Creatinine Ratio 19 Glucose Level 116 H 70-105 MG/DL Lactic Acid Level 1.15 0.50-2.00 MMOL/L Calcium Level 9.1 8.5-10.1 MG/DL Corrected Calcium 9.7 8.5-10.1 MG/DL Magnesium Level 2.6 H 1.6-2.4 MG/DL Total Bilirubin 0.3 0.1-1.0 MG/DL Direct Bilirubin 0.2 0.0-0.3 MG/DL Indirect Bilirubin 0.1 MG/DL Aspartate Amino Transf (AST/SGOT) 30 5-34 U/L Alanine Aminotransferase (ALT/SGPT) 20 0-55 U/L Alkaline Phosphatase 94 40-136 U/L Lactate Dehydrogenase 237 H 125-220 U/L Troponin I < 0.028 <0.028 NG/ML C-Reactive Protein High Sensitivity 33.35 H 0.00-0.50 MG/DL B-Type Natriuretic Peptide 74.5 <100.0 PG/ML Total Protein 7.5 6.4-8.2 GM/DL Albumin 3.2 3.2-4.5 GM/DL Procalcitonin 16.98 H <0.10 NG/ML Group A Streptococcus Screen NEGATIVE NEGATIVE Urine Color BROWN H Urine Clarity TURBID Urine pH 6.5 5-9 Urine Specific [place] 1.015 L 1.016-1.022 Urine Protein 3+ H NEGATIVE Urine Glucose (UA) NEGATIVE NEGATIVE Urine Ketones NEGATIVE NEGATIVE Urine Nitrite NEGATIVE NEGATIVE Urine Bilirubin NEGATIVE NEGATIVE Urine Urobilinogen 0.2 < = 1.0 MG/DL Urine Leukocyte Esterase 3+ H NEGATIVE Urine RBC (Auto) 3+ H NEGATIVE Urine RBC >100 H /HPF Urine WBC TNTC H /HPF Urine Crystals NONE /LPF Urine Bacteria LARGE H /HPF Urine Casts NONE /LPF Urine Mucus NEGATIVE /LPF Urine Culture Indicated CULTURE PENDING Micro Results Microbiology 01/20/20 Influenza Types A,B Antigen (KAREEM) - Final, Complete My Orders Orders - SHAVONNE HAMILTON DO Cbc With Automated Diff (01/20/20 08:12) Comprehensive Metabolic Panel (01/20/20 08:12) Blood Culture (01/20/20 08:12) Sputum Culture (01/20/20 08:12) Urinalysis (01/20/20 08:12) Urine Culture (01/20/20 08:12) Protime With Inr (01/20/20 08:12) Partial Thromboplastin Time (01/20/20 08:12) Chest 1 View, Ap/Pa Only (01/20/20 08:12) Acetaminophen Tablet (Tylenol Tablet) (01/20/20 08:15) Ed Iv/Invasive Line Start (01/20/20 08:12) Ed Iv/Invasive Line Start (01/20/20 08:12) Ekg Tracing (01/20/20 08:12) Troponin I (01/20/20 08:12) Vital Signs Adult Sepsis Patie Q15M (01/20/20 08:12) O2 (01/20/20 08:12) Remove Rings In Anticipation O (01/20/20 08:12) Lactic Acid Analyzer (01/20/20 08:12) Influenza A And B Antigens (01/20/20 08:12) Ed Iv/Invasive Line Start (01/20/20 08:12) Ns Iv 1000 Ml (Sodium Chloride 0.9%) (01/20/20 08:12) BNP (01/20/20 08:12) Magnesium (01/20/20 08:12) Procalcitonin (Pct) (01/20/20 08:12) Ferritin (01/20/20 08:12) Fibrin Degradation Products (01/20/20 08:12) Hs C Reactive Protein (01/20/20 08:12) Erythrocyte Sedimentation Rate (01/20/20 08:12) LDH (01/20/20 08:12) Azithromycin Injection (Zithromax Inject (01/20/20 08:12) Liver Panel (01/20/20 08:12) Rapid Strep A Screen (01/20/20 08:12) Albuterol/Ipratropium Inhaler (Combivent (01/20/20 09:00) Rt Request For Service (01/20/20 08:31) Catheter(Urinary) Insert & Ass 15 (01/20/20 08:44) 2019 Coronavirus Sars-Cov-2 So (01/20/20 08:48) Manual Differential (01/20/20 08:22) Acetaminophen Suppository (Tylenol Suppo (01/20/20 09:15) Fentanyl Injection (Sublimaze Injection (01/20/20 09:15) Medications Given in ED Current Medications Medications Dose Ordered Sig/Tomas Route Start Time Stop Time Status Last Admin Dose Admin Acetaminophen 1,300 mg ONCE ONCE [place] 01/20/20 09:15 01/20/20 09:16 DC 01/20/20 09:11 1,300 MG Albuterol/ Ipratropium 1 PUFF QID ONCE IH 01/20/20 09:00 01/20/20 09:01 DC 01/20/20 09:00 1 GM Azithromycin 500 mg/Sodium Chloride 250 ml @ 250 mls/hr 0812 ONCE IV 01/20/20 08:12 01/20/20 09:11 DC 01/20/20 09:00 250 MLS/HR Cefepime HCl 2000 mg/Sterile Water 20 ml @ 240 mls/hr ONCE ONCE IV 01/20/20 10:00 01/20/20 10:05 DC 01/20/20 10:20 240 MLS/HR Fentanyl Citrate 50 mcg ONCE ONCE IVP 01/20/20 09:15 01/20/20 09:16 DC 01/20/20 09:13 50 MCG Vital Signs/I&O 01/20/20 01/20/20 01/20/20 08:09 08:10 09:06 Temp 37.8 Pulse 141 Resp 30 B/P (MAP) 106/96 (99) Pulse Ox 98 98 O2 Delivery Room Air Nasal Cannula Nasal Cannula O2 Flow Rate 2.00 2.00 Capillary Refill : Progress Note : Progress Note PPE DONNED PRIOR TO BRINGING PT TO ROOM AND WORN AT ALL TIMES WHILE IN ROOM OR ANY CONTACT WITH PT. COVID TESTING PERFORMED, BASED ON CURRENT TESTING GUIDELINES GIVEN INHALER TREATMENT GIVEN IV FLUIDS AND ANTIBIOTICS ECG Initial ECG Impression Date: Jan 20, 2020 Initial ECG Impression Time: 08:27 Initial ECG Rate: 138 Initial ECG Rhythm: S.Tach Diagnostic Imaging Comments CXR--PER RADIOLOGIST REPORT AT 1025 IMPRESSION: 1. Increased mild bibasilar opacities, may represent atelectasis or developing infiltrate. 2. Pulmonary nodules and sclerotic lesions consistent with history of metastatic disease. Reviewed: Reviewed by Me Departure Communication (Admissions) Family Conversation 1010--SPOKE WITH PT'S DAUGHTER, AND UPDATE ON PT'S CONDITION GIVEN. ADVISED HER OF PT'S GRAVE CONDITION AND POSSIBILITY THAT HE MAY NOT SURVIVE THIS. SHE UNDERSTANDS. 1005--SPOKE WITH DR. BAKER, HOSPITALIST, ACCEPTS PT FOR ADMIT. WILL BE DOWN TO SEE PT 1025--DR. BAKER HERE 1025--SPOKE WITH DR. ROBERT, ONCOLOGIST ROAD MIXER OPERATOR. NO ADDITIONAL RECOMMENDATIONS AT THIS TIME Impression Primary Impression: Severe sepsis Additional Impressions: UTI (urinary tract infection) Pneumonia Prostate cancer metastatic to bone Dementia CAD WITH HX OF CABG COVID P.U.I. Renal failure (ARF), acute on chronic Dehydration Disposition: ADMITTED INPATIENT Condition: Stable Admissions Decision to Admit Reason: Admit from ER (General) Decision to Admit/Date: Jan 20, 2020 Time/Decision to Admit Time: 10:00 Departure-Patient Inst. Referrals: MAGY CALLAHAN DO (PCP/Family) Primary Care Physician Scripts Lorazepam (Lorazepam Intensol) 2 Mg/1 Ml Oral.conc 2 MG PO Q2H PRN for AGITATION, #30 ML Prov: SOFIA BAKER MD 01/20/20 Morphine Sulfate (Morphine Conc. 20mg/ml) 100 Mg/5 Ml Solution 10 MG PO Q2H PRN for PAIN for 7 Days, ML Prov: SOFIA BAKER MD 01/20/20 SHAVONNE HAMILTON DO Jan 20, 2020 08:44
[2020-01-20 08:52] LABS: BASOPHILS % (AUTO) 0 % (0-10); EOSINOPHILS % (AUTO) 0 % (0-10); HEMATOCRIT 27 % (40-54); HEMOGLOBIN 9.2 G/DL (13.3-17.7); LYMPHOCYTES # (AUTO) 0.3 X 10^3 (1.0-4.0); LYMPHOCYTES % (AUTO) 2 % (12-44); MEAN CORPUSCULAR HEMOGLOBIN 33 PG (25-34); MEAN CORPUSCULAR HGB CONC 34 G/DL (32-36); MEAN CORPUSCULAR VOLUME 96 FL (80-99); MEAN PLATELET VOLUME 9.8 FL (7.4-10.4); MONOCYTES # (AUTO) 0.8 X 10^3 (0.0-1.0); MONOCYTES % (AUTO) 5 % (0-12); NEUTROPHILS # (AUTO) 16.2 X 10^3 (1.8-7.8); NEUTROPHILS % (AUTO) 94 % (42-75); PLATELET COUNT 428 10^3/uL (130-400); RED CELL DISTRIBUTION WIDTH 13.6 % (10.0-14.5); WHITE BLOOD COUNT 17.4 10^3/uL (4.3-11.0)
[2020-01-20] MEDS ORDERED: ALBUTEROL/IPRATROP (COMBIVENT RESPIMAT) 4 GM INHALER IH ONE (09:00)
[2020-01-20 09:15] LABS: FIBRIN DEGRADATION PRODUCTS 11.83 UG/ML (0.00-0.49); INR 1.5 (0.8-1.4); PROTHROMBIN TIME PATIENT 18.9 SEC (12.2-14.7)
[2020-01-20] MEDS ORDERED: ACETAMINOPHEN 650 MG SUPP (TYLENOL) PR ONE (09:15)
[2020-01-20] MEDS ORDERED: fentaNYL INJECTION 100 MCG/2 ML AMP IVP ONE ×2 (09:15→10:15)
[2020-01-20 09:20] LABS: ALANINE AMINOTRANSFERASE 20 U/L (0-55); ALBUMIN 3.2 GM/DL (3.2-4.5); ALKALINE PHOSPHATASE 94 U/L (40-136); BILIRUBIN,DIRECT 0.2 MG/DL (0.0-0.3); BILIRUBIN,INDIRECT 0.1 MG/DL; BILIRUBIN,TOTAL 0.3 MG/DL (0.1-1.0); BUN/CREATININE RATIO 19; CALCIUM 9.1 MG/DL (8.5-10.1); CHLORIDE 112 MMOL/L (98-107); CREATININE SERUM 8.23 MG/DL (0.60-1.30); ERYTHROCYTE SEDIMENTATION RATE > 140 MM/HR (0-30); GFR ESTIMATED 6; GLUCOSE 116 MG/DL (70-105); MAGNESIUM 2.6 MG/DL (1.6-2.4); POTASSIUM 4.8 MMOL/L (3.6-5.0); SODIUM 138 MMOL/L (135-145); TOTAL PROTEIN 7.5 GM/DL (6.4-8.2)
[2020-01-20 09:22] LABS: CARBON DIOXIDE 5 MMOL/L (21-32)
[2020-01-20 09:30] LABS: CLARITY,URINE TURBID; COLOR,URINE BROWN; GLUCOSE, URINE (UA) NEGATIVE (NEGATIVE); PH,URINE 6.5 (5-9); PROTEIN,URINE 3+ (NEGATIVE)
[2020-01-20 09:31] LABS: BACTERIA,URINE LARGE /HPF; BILIRUBIN,URINE NEGATIVE (NEGATIVE); KETONES,URINE NEGATIVE (NEGATIVE); LEUKOCYTE ESTERASE ,URINE 3+ (NEGATIVE); NITRITE,URINE NEGATIVE (NEGATIVE); RBC,URINE >100 /HPF; WBC,URINE TNTC /HPF
[2020-01-20] MEDS ORDERED: CEFEPIME INJECTION 2,000 MG in WATER (STERILE) FOR INJECTION 20 ML IV ONE (10:00)
[2020-01-20 10:01] LABS: BAND NEUTROPHILS 6 %; BASOPHILS % (MANUAL) 0 %; EOSINOPHILS % (MANUAL) 0 %; LYMPHOCYTES % (MANUAL) 1 %; MONOCYTES % (MANUAL) 2 %; NEUTROPHILS % (MANUAL) 91 %; RBC MORPH NORMAL
[2020-01-20] MEDS ORDERED: LACTATED RINGERS 1,000 ML IV ONE ×2 (10:08→12:17)
--- NOTE | 2020-01-20 10:15 | NUR ---
Patient appears to be in pain. Patient moaning, does not aknowledge nurse. Fentanyl ordered for pain.
--- NOTE | 2020-01-20 10:17 | Diagnostic Imaging Report ---
HISTORY: Altered mental status and fever. History of metastasis. COMPARISON: 06/09/2018 TECHNIQUE: Single frontal view of the chest. FINDINGS: There are mild bibasilar opacities in the lungs which appear new since the prior exam. There is a pulmonary nodule in the right lung, may represent previously described metastatic lesion. There also appears to be sclerotic lesions in the right scapula which appear similar to 06/09/2019. The cardiac silhouette is mildly prominent, likely accentuated by low lung volumes. No significant pleural effusion or pneumothorax is seen. Sternotomy wires are noted. IMPRESSION: 1. Increased mild bibasilar opacities, may represent atelectasis or developing infiltrate. 2. Pulmonary nodules and sclerotic lesions consistent with history of metastatic disease. Dictated by: Dictated on workstation # [id number]
[2020-01-20] MEDS: VANCOMYCIN INJECTION 1,000 MG in NS (IVPB) 250 ML IV SCH ×2 (10:29→11:29)
--- NOTE | 2020-01-20 10:38 | NUR ---
Patient resting more quietly after fentanyl given IV. Patient continues to moan at times but is not at restless.
--- OUTSIDE RECORDS SUMMARY | 2020-01-20 11:43 | XMS REPORT | Continuity of Care Document ---
Author Organization Unknown Address Unknown Phone Unavailable Allergies Active Description Code Type Severity Reaction Onset Reported/Identified Relationship to Patient Clinical Status Yes No Known Drug Allergies [id number] Drug Allergy Unknown N/A 08/22/2015 Medications There is no data. 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 09/16/1020 RAMONA ROBERT Ot I25.10 ATHSCL HEART DISEASE OF [place] CORONARY 09/16/1020 RAMONA ROBERT Ot N18.3 CHRONIC KIDNEY DISEASE, STAGE 3 (MODERAT 09/16/1020 RAMONA ROBERT Ot Z79.899 OTHER PRISON (CURRENT) DRUG THERAPY 09/16/1020 RAMONA ROBERT Ot [...] E11.22 TYPE 2 DIABETES MELLITUS W DIABETIC 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 09/16/1341 KENYON SNYDER MD Ot F03.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 BEHAVIORAL 09/16/1341 KENYON SNYDER MD Ot I25.10 ATHSCL HEART DISEASE OF [place] CORONARY 09/16/1341 KENYON SNYDER MD Ot M25.511 PAIN IN RIGHT SHOULDER 09/16/1341 KENYON SNYDER MD Ot M62.81 MUSCLE WEAKNESS (GENERALIZED) 09/16/1341 KENYON SNYDER MD Ot N18.4 CHRONIC KIDNEY DISEASE, STAGE 4 (SEVERE) 09/16/1341 KENYON SNYDER MD Ot R07.89 OTHER CHEST PAIN 09/16/1341 KENYON SNYDER MD Ot Z79.899 OTHER SALES FACILITATOR (CURRENT) DRUG THERAPY 09/16/1341 KENYON SNYDER MD [...] E11.22 TYPE 2 DIABETES MELLITUS W DIABETIC 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 09/16/1357 KENYON SNYDER MD Ot I25.10 ATHSCL HEART DISEASE OF [place] CORONARY 09/16/1357 KENYON SNYDER MD Ot N18.3 CHRONIC KIDNEY DISEASE, STAGE 3 (MODERAT 09/16/1357 KENYON SNYDER MD Ot Z79.899 OTHER SALES FACILITATOR (CURRENT) DRUG THERAPY 09/16/1357 KNEYON SNYDER MD Ot Z87.891 PERSONAL HISTORY OF [...] C79.5 1 08/22/2015 KEE CARDENAS, JET Rapp [employer] Ot C61 08/22/2015 KEE RN, JET Rapp [employer] Ot C79.51 08/22/2015 KEE CARDENAS, JET Rapp [employer] Ot C61 08/22/2015 KEE RN, JET HEADP Ot C79.51 08/28/2015 IMMANUEL CAPPS, ISIAH E Ot C61 08/28/2015 IMMANUEL CAPPS ISIAH E Ot C79.5 1 09/18/2015 KEE CARDENAS, JET Rapp [employer] Ot C61 09/18/2015 KEE RN, JET C [employer] Ot C79.51 09/24/2015 KEE RN, JET C [employer] Ot C61 09/24/2015 KEE RN, JET C [employer] Ot C79.51 09/27/2015 KEE RN, JET C [employer] Ot C61 09/27/2015 KEE RN, JET C [employer] Ot C79.51 10/07/2015 KEE RN, JET C [employer] Ot C61 10/07/2015 KEE RN, JET C [employer] Ot C79.51 10/29/2015 JAKOB, BOBAN N Ot [...] 11/05/2015 JAKOB, BOBAN N Ot Z87.891 11/05/2015 JAKOB, BOBAN N Ot Z95.1 11/20/2015 JAKOB, BOBAN N Ot C61 MALIGNANT NEOPLASM OF PROSTATE 11/20/2015 JAKOB, BOBAN N Ot C79.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 11/20/2015 JAKOB, BOBAN N Ot E11.22 TYPE 2 DIABETES MELLITUS W DIABETIC 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 11/20/2015 JAKOB, BOBAN N Ot I25.10 ATHSCL HEART DISEASE OF [place] CORONARY 11/20/2015 JAKOB BOBAN N Ot N18.3 CHRONIC KIDNEY DISEASE, STAGE 3 (MODERAT 11/20/2015 RAMONA ROBERT N Ot Z79.899 OTHER PRISON (CURRENT) DRUG THERAPY 11/20/2015 RAMONA ROBERT N [...] ROBERT N Ot Z95.1 12/27/2015 HEATH HAYDEN [employer] Ot C 61 12/27/2015 HEATH HAYDEN [employer] Ot C79.51 12/27/2015 HEATH HAYDEN [employer] Ot E11.22 12/27/2015 HEATH HAYDEN [employer] Ot I25.10 12/27/2015 HEATH HAYDEN [employer] Ot N18.3 12/27/2015 HEATH HAYDEN [employer] Ot Z79.899 12/27/2015 HEATH HAYDEN [employer] Ot Z87.891 12/27/2015 HEATH HAYDEN [employer] Ot Z95.1 12/31/2015 HEATH HAYDEN [employer] Ot C 61 12/31/2015 HEATH HAYDEN S [employer] Ot C79.51 12/31/2015 HEATH HAYDEN [employer] Ot E11.22 12/31/2015 HEATH HAYDEN [employer] Ot I25.10 12/31/2015 HEATH HAYDEN [employer] Ot N18.3 12/31/2015 HEATH HAYDEN [employer] Ot Z79.899 12/31/2015 HEATH HAYDEN S [employer] Ot Z87.891 12/31/2015 HEATH HAYDEN S [employer] Ot Z95.1 01/21/2016 RAMONA ROBERT N Ot C61 01/21/2016 JAKOB, CHERELLEAN N Ot C79.51 01/21/2016 JAKOB, CHERELLEAN N Ot E11.22 01/21/2016 JAKOB, CHERELLEAN N Ot I25.10 01/21/2016 JAKOB, RAMONA N Ot N18.3 01/21/2016 JAKOB, CHERELLEAN N Ot Z79.899 01/21/2016 JAKOB, CHERELLEAN N Ot Z87.891 01/21/2016 JAKOB, RAMONA N Ot Z95.1 01/23/2016 JAKOB, RAMONA [...] E11.22 TYPE 2 DIABETES MELLITUS W DIABETIC 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 03/11/2016 RAMONA ROBERT N Ot I25.10 ATHSCL HEART DISEASE OF [place] CORONARY 03/11/2016 RAMONA ROBERT N Ot N18.3 CHRONIC KIDNEY DISEASE, STAGE 3 (MODERAT 03/11/2016 JAKOBRAMONA PINTO N Ot Z79.899 OTHER SALES FACILITATOR (CURRENT) DRUG THERAPY 03/11/2016 JAKOBRAMONA PINTO N Ot Z87.891 PERSONAL HISTORY OF NICOTINE DEPENDENCE 03/11/2016 JAKOBCHERELLE PINTOAN N Ot Z95.1 PRESENCE OF AORTOCORONARY BYPASS GRAFT 05/27/2016 JAKOBRAMONA PINTO N Ot C61 MALIGNANT NEOPLASM OF PROSTATE 05/27/2016 JAKOBRAMONA PINTO N Ot C79.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 05/27/2016 JKAOB, CHERELLEAN N Ot E11.22 TYPE 2 DIABETES MELLITUS W DIABETIC 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 05/27/2016 RAMONA ROBERT Ot I25.10 ATHSCL HEART DISEASE OF [place] CORONARY 05/27/2016 RAMONA ROBERT Ot N18.3 CHRONIC KIDNEY DISEASE, STAGE 3 (MODERAT 05/27/2016 RAMONA ROBERT Ot Z79.899 OTHER SALES FACILITATOR (CURRENT) DRUG THERAPY 05/27/2016 RAMONA ROBERT Ot Z87.891 PERSONAL HISTORY OF NICOTINE DEPENDENCE 05/27/2016 RAMONA ROBERT Ot Z95.1 PRESENCE OF AORTOCORONARY BYPASS GRAFT 05/29/2016 RAMONA ROBERT Ot C61 MALIGNANT NEOPLASM OF PROSTATE 05/29/2016 RAMONA ROBERT Ot C79.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 05/29/2016 RAMONA ROBERT Ot E11.22 TYPE 2 DIABETES MELLITUS W DIABETIC 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 05/29/2016 RAMONA ROBERT Ot I25.10 ATHSCL HEART DISEASE OF [place] CORONARY 05/29/2016 RAMONA ROBERT Ot N18.3 CHRONIC KIDNEY DISEASE, STAGE 3 (MODERAT 05/29/2016 RAMONA ROBERT Ot Z79.899 OTHER PRISON (CURRENT) DRUG THERAPY 05/29/2016 RAMONA ROBERT Ot Z87.891 PERSONAL HISTORY OF NICOTINE DEPENDENCE 05/29/2016 RAMONA ROBERT Ot Z95.1 PRESENCE OF AORTOCORONARY BYPASS GRAFT 06/01/2016 HEATH HAYDEN [employer] Ot C 61 MALIGNANT NEOPLASM OF PROSTATE 06/19/2016 HEATH HAYDEN [employer] Ot C 61 MALIGNANT NEOPLASM OF PROSTATE 06/24/2016 HEATH HAYDEN [employer] Ot C 61 MALIGNANT NEOPLASM OF PROSTATE [...] OF BONE 06/26/2016 KEE RN, JET C [employer] Ot C61 MALIGNANT NEOPLASM OF PROSTATE 06/26/2016 KEE RN, JET C [employer] Ot C79.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 06/26/2016 SINDY-RAMIN RN, JET C [employer] Ot C61 MALIGNANT NEOPLASM OF PROSTATE 06/26/2016 SINDY-RAMIN RN, JET C [employer] Ot C79.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 06/26/2016 SINDY-RAMIN RN, JET C [employer] Ot C61 MALIGNANT NEOPLASM OF PROSTATE 06/26/2016 SINDYRAMIN RN, JET C [employer] Ot C79.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 06/26/2016 HEATH HAYDEN [employer] Ot C 61 MALIGNANT NEOPLASM OF PROSTATE 06/26/2016 HEATH HAYDEN [employer] Ot C79.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 06/26/2016 HEATH HAYDEN [employer] Ot E11.22 TYPE 2 DIABETES MELLITUS W DIABETIC 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 06/26/2016 HEATH HAYDENP Ot I25.10 ATHSCL HEART DISEASE OF [place] CORONARY 06/26/2016 HEATH HAYDENP Ot N18.3 CHRONIC KIDNEY DISEASE, STAGE 3 (MODERAT 06/26/2016 HEATH HAYDEN [employer] Ot Z79.899 OTHER SALES FACILITATOR (CURRENT) DRUG THERAPY 06/26/2016 HEATH HAYDEN [employer] Ot Z87.891 PERSONAL HISTORY OF NICOTINE DEPENDENCE 06/26/2016 HEATH HAYDEN [employer] Ot Z95.1 PRESENCE OF AORTOCORONARY BYPASS GRAFT 06/26/2016 RAMONA ROBERT Ot C61 MALIGNANT NEOPLASM OF PROSTATE 06/26/2016 RAMONA ROBERT Ot C79.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 06/26/2016 RAMONA ROBERT Ot E11.22 TYPE 2 DIABETES MELLITUS W DIABETIC 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 06/26/2016 RAMONA ROBERT N Ot I25.10 ATHSCL HEART DISEASE OF [place] CORONARY 06/26/2016 RAMONA ROBERT N Ot N18.3 CHRONIC KIDNEY DISEASE, STAGE 3 (MODERAT 06/26/2016 RAMONA ROBERT N Ot Z79.899 OTHER PRISON (CURRENT) DRUG THERAPY 06/26/2016 RAMONA ROBERT N Ot Z87.891 PERSONAL HISTORY OF NICOTINE DEPENDENCE 06/26/2016 RAMONA ROBERT N Ot Z95.1 PRESENCE OF AORTOCORONARY BYPASS GRAFT 06/26/2016 HAYDENHEATH Packer S [employer] Ot C 61 MALIGNANT NEOPLASM OF PROSTATE 07/20/2016 HAYDENHEATH S [employer] Ot C79.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 07/20/2016 HAYDENSTEVOAH S [employer] Ot R91.1 SOLITARY PULMONARY NODULE 07/20/2016 HAYDEN HILAH S [employer] Ot R93.8 ABNORMAL FINDINGS ON DIAGNOSTIC IMAGING 07/23/2016 HAYDENHEATH Packer S [employer] Ot C79.51 SECONDARY MALIGNANT NEOPLASM OF BONE 07/23/2016 HAYDENHEATH S [employer] Ot R91.1 SOLITARY PULMONARY NODULE 07/23/2016 HAYDENSTEVOAH S [employer] Ot R93.8 ABNORMAL FINDINGS ON DIAGNOSTIC IMAGING 07/27/2016 RAMONA ROBERT N Ot C61 MALIGNANT NEOPLASM OF PROSTATE 07/27/2016 RAMONA ROBERT N Ot C79.51 SECONDARY MALIGNANT NEOPLASM OF BONE 07/27/2016 RAMONA ROBERT N Ot E11.22 TYPE 2 DIABETES MELLITUS W DIABETIC 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 07/27/2016 RAMONA ROBERT N Ot I25.10 ATHSCL HEART DISEASE OF [place] CORONARY 07/27/2016 RAMONA ROBERT N Ot N18.3 CHRONIC KIDNEY DISEASE, STAGE 3 (MODERAT 07/27/2016 RAMONA ROBERT N Ot Z79.899 OTHER PRISON (CURRENT) DRUG THERAPY 07/27/2016 RAMONA ROBERT N Ot Z87.891 PERSONAL HISTORY OF NICOTINE DEPENDENCE 07/27/2016 RAMONA ROBERT N Ot Z95.1 PRESENCE OF AORTOCORONARY BYPASS GRAFT 09/02/2016 RAMONA ROBERT N Ot C61 MALIGNANT NEOPLASM OF PROSTATE 09/02/2016 JAKOB CHERELLEBIANCA N Ot C79.51 SECONDARY MALIGNANT NEOPLASM OF BONE 09/02/2016 RAMONA ROBERT N Ot E11.22 TYPE 2 DIABETES MELLITUS W DIABETIC 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 09/02/2016 RAMONA ROBERT N Ot I25.10 ATHSCL HEART DISEASE OF [place] CORONARY 09/02/2016 RAMONA ROBERT N Ot N18.3 CHRONIC KIDNEY DISEASE, STAGE 3 (MODERAT 09/02/2016 RAMONA ROBERT N Ot Z79.899 OTHER PRISON (CURRENT) DRUG THERAPY 09/02/2016 RAMONA ROBERT N Ot Z87.891 PERSONAL HISTORY OF NICOTINE DEPENDENCE 09/02/2016 RAMONA ROBERT N Ot Z95.1 PRESENCE OF AORTOCORONARY BYPASS GRAFT 10/20/2016 RAMONA ROBERT N Ot C61 MALIGNANT NEOPLASM OF PROSTATE 10/20/2016 JAKOB BOBAN N Ot C79.51 SECONDARY MALIGNANT NEOPLASM OF BONE 10/20/2016 RAMONA ROBERT N Ot E11.22 TYPE 2 DIABETES MELLITUS W DIABETIC 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 10/20/2016 RAMONA ROBERT N Ot I25.10 ATHSCL HEART DISEASE OF [place] CORONARY 10/20/2016 RAMONA ROBERT N Ot N18.3 CHRONIC KIDNEY DISEASE, STAGE 3 (MODERAT 10/20/2016 RAMONA ROBERT N Ot Z79.899 OTHER SALES FACILITATOR (CURRENT) DRUG THERAPY 10/20/2016 RAMONA ROBERT N Ot Z87.891 PERSONAL HISTORY OF NICOTINE DEPENDENCE 10/20/2016 RAMONA ROBERT N Ot Z95.1 PRESENCE OF AORTOCORONARY BYPASS GRAFT 10/23/2016 RAMONA ROBERT N Ot C61 MALIGNANT NEOPLASM OF PROSTATE 10/23/2016 RAMONA ROBERT N Ot C79.51 SECONDARY MALIGNANT NEOPLASM OF BONE 10/23/2016 RAMONA ROBERT N Ot E11.22 TYPE 2 DIABETES MELLITUS W DIABETIC 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 10/23/2016 RAMONA ROBERT N Ot I25.10 ATHSCL HEART DISEASE OF [place] CORONARY 10/23/2016 RAMONA ROBERT N Ot N18.3 CHRONIC KIDNEY DISEASE, STAGE 3 (MODERAT 10/23/2016 JAKOBRAMONA PINTO N Ot Z79.899 OTHER SALES FACILITATOR (CURRENT) DRUG THERAPY 10/23/2016 RAMONA ROBERT N Ot Z87.891 PERSONAL HISTORY OF NICOTINE DEPENDENCE 10/23/2016 RAMONA ROBERT N Ot Z95.1 PRESENCE OF AORTOCORONARY BYPASS GRAFT 11/25/2016 RAMONA ROBERT N Ot C61 MALIGNANT NEOPLASM OF PROSTATE 11/25/2016 RAMONA ROBERT N Ot C79.51 SECONDARY MALIGNANT NEOPLASM OF BONE 11/25/2016 RAMONA ROBERT N Ot E11.22 TYPE 2 DIABETES MELLITUS W DIABETIC 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 11/25/2016 RAMONA ROBERT N Ot I25.10 ATHSCL HEART DISEASE OF [place] CORONARY 11/25/2016 RAMONA ROBERT N Ot N18.3 CHRONIC KIDNEY DISEASE, STAGE 3 (MODERAT 11/25/2016 RAMONA ROBERT N Ot Z79.899 OTHER SALES FACILITATOR (CURRENT) DRUG THERAPY 11/25/2016 RAMONA ROBERT N Ot Z87.891 PERSONAL HISTORY OF NICOTINE DEPENDENCE 11/25/2016 RAMONA ROBERT N Ot Z95.1 PRESENCE OF AORTOCORONARY BYPASS GRAFT 11/26/2016 RAMONA ROBERT Lyudmila Ot C61 MALIGNANT NEOPLASM OF PROSTATE 11/26/2016 RAMONA ROBERT N Ot C79.51 SECONDARY MALIGNANT NEOPLASM OF BONE 11/26/2016 RAMONA ROBERT N Ot E11.22 TYPE 2 DIABETES MELLITUS W DIABETIC 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 11/26/2016 RAMONA ROBERT N Ot I25.10 ATHSCL HEART DISEASE OF [place] CORONARY 11/26/2016 RAMONA ROBERT N Ot N18.3 CHRONIC KIDNEY DISEASE, STAGE 3 (MODERAT 11/26/2016 RAMONA ROBERT N Ot Z79.899 OTHER PRISON (CURRENT) DRUG THERAPY 11/26/2016 RAMONA ROBERT N [...] OF BONE 02/17/2017 KEE RN, JET C [employer] Ot C61 MALIGNANT NEOPLASM OF PROSTATE 02/17/2017 KEE RN, JET C [employer] Ot C79.51 SECONDARY MALIGNANT NEOPLASM OF BONE 02/17/2017 SINDY-RAMIN RN, JET C [employer] Ot C61 MALIGNANT NEOPLASM OF PROSTATE 02/17/2017 SINDY-RAMIN RN, JET C [employer] Ot C79.51 SECONDARY MALIGNANT NEOPLASM OF BONE 02/17/2017 KEE RN, JET C [employer] Ot C61 MALIGNANT NEOPLASM OF PROSTATE 02/17/2017 KEE RN, JET C [employer] Ot C79.51 SECONDARY MALIGNANT NEOPLASM OF BONE 02/17/2017 HEATH HAYDEN [employer] Ot C 61 MALIGNANT NEOPLASM OF PROSTATE 02/17/2017 HEATH HAYDENP Ot C79.51 SECONDARY MALIGNANT NEOPLASM OF BONE 02/17/2017 HEATH HAYDENP Ot E11.22 TYPE 2 DIABETES MELLITUS W DIABETIC 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 02/17/2017 HEATH HAYDENP Ot I25.10 ATHSCL HEART DISEASE OF [place] CORONARY 02/17/2017 HEATH HAYDENP Ot N18.3 CHRONIC KIDNEY DISEASE, STAGE 3 (MODERAT 02/17/2017 HEATH HAYDEN [employer] Ot Z79.899 OTHER SALES FACILITATOR (CURRENT) DRUG THERAPY 02/17/2017 HEATH HAYDENP Ot Z87.891 PERSONAL HISTORY OF NICOTINE DEPENDENCE 02/17/2017 HEATH HAYDENP Ot Z95.1 PRESENCE OF AORTOCORONARY BYPASS GRAFT 02/17/2017 HEATH HAYDEN [employer] Ot C 61 MALIGNANT NEOPLASM OF PROSTATE 02/17/2017 HEATH HAYDENP Ot C79.51 SECONDARY MALIGNANT NEOPLASM OF BONE 02/17/2017 HAYDEN, HILAH S [employer] Ot R91.1 SOLITARY PULMONARY NODULE 02/17/2017 HEATH HAYDEN [facility] Ot R93.8 ABNORMAL FINDINGS ON DIAGNOSTIC IMAGING 02/17/2017 RAMONA ROBERT yLudmila Ot C61 MALIGNANT NEOPLASM OF PROSTATE 02/17/2017 RAMONA ROBERT N Ot C79.51 SECONDARY MALIGNANT NEOPLASM OF BONE 02/17/2017 RAMONA ROBERT N Ot E11.22 TYPE 2 DIABETES MELLITUS W DIABETIC 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 02/17/2017 RAMONA ROBERT N Ot I25.10 ATHSCL HEART DISEASE OF [place] CORONARY 02/17/2017 RAMONA ROBERT N Ot N18.3 CHRONIC KIDNEY DISEASE, STAGE 3 (MODERAT 02/17/2017 RAMONA ROBERT N Ot Z79.899 OTHER PRISON (CURRENT) DRUG THERAPY 02/17/2017 RAMONA ROBERT N Ot Z87.891 PERSONAL HISTORY OF NICOTINE DEPENDENCE 02/17/2017 RAMONA ROBERT Lyudmila Ot Z95.1 PRESENCE OF AORTOCORONARY BYPASS GRAFT 02/18/2017 RAMONA ROBERT Lyudmila Ot C61 MALIGNANT NEOPLASM OF PROSTATE 02/18/2017 RAMONA ROBERT Lyudmila Ot C79.51 SECONDARY MALIGNANT NEOPLASM OF BONE 02/18/2017 RAMONA ROBERT N Ot E11.22 TYPE 2 DIABETES MELLITUS W DIABETIC 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 02/18/2017 RAMONA ROBERT N Ot I25.10 ATHSCL HEART DISEASE OF [place] CORONARY 02/18/2017 RAMONA ROBERT N Ot N18.3 CHRONIC KIDNEY DISEASE, STAGE 3 (MODERAT 02/18/2017 RAMONA ROBERT N Ot Z79.899 OTHER PRISON (CURRENT) DRUG THERAPY 02/18/2017 RAMONA ROBERT Lyudmila [...] Ot V58.69 OTH MED,LT,CURRENT USE 03/31/2017 ISIAH GABMINO MD Ot 185 MALIGN NEOPL PROSTATE 03/31/2017 ISIAH GAMBINO MD Ot 185 MALIGN NEOPL PROSTATE 03/31/2017 ISIAH GAMBINO MD Ot V58.0 ENCOUNTER FOR RADIOTHERAPY 03/31/2017 ISIAH GAMBINO MD Ot C61 MALIGNANT NEOPLASM OF PROSTATE 03/31/2017 ISIAH GAMBINO MD Ot C79.5 1 SECONDARY MALIGNANT NEOPLASM OF BONE 03/31/2017 KEE RN, JET C [employer] Ot C61 MALIGNANT NEOPLASM OF PROSTATE 03/31/2017 SINDY-RAMIN RN, JET C [employer] Ot C79.51 SECONDARY MALIGNANT NEOPLASM OF BONE 03/31/2017 SINDY-RAMIN RN, JET C [employer] Ot C61 MALIGNANT NEOPLASM OF PROSTATE 03/31/2017 KEE RN, JET C [employer] Ot C79.51 SECONDARY MALIGNANT NEOPLASM OF BONE 03/31/2017 SINDY-RAMIN RN, JET C [employer] Ot C61 MALIGNANT NEOPLASM OF PROSTATE 03/31/2017 KEE RN, JET C [employer] Ot C79.51 SECONDARY MALIGNANT NEOPLASM OF BONE 03/31/2017 HEATH HADYEN Ot C 61 MALIGNANT NEOPLASM OF PROSTATE 03/31/2017 HEATH HAYDENP Ot C79.51 SECONDARY MALIGNANT NEOPLASM OF BONE 03/31/2017 HEATH HAYDENP Ot E11.22 TYPE 2 DIABETES MELLITUS W DIABETIC 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 03/31/2017 HEATH HAYDENP Ot I25.10 ATHSCL HEART DISEASE OF [place] CORONARY 03/31/2017 HEATH HAYDENP Ot N18.3 CHRONIC KIDNEY DISEASE, STAGE 3 (MODERAT 03/31/2017 HEATH HAYDEN Ot Z79.899 OTHER PRISON (CURRENT) DRUG THERAPY 03/31/2017 HEATH HAYDEN Ot Z87.891 PERSONAL HISTORY OF NICOTINE DEPENDENCE 03/31/2017 HEATH HAYDEN Ot Z95.1 PRESENCE OF AORTOCORONARY BYPASS GRAFT 03/31/2017 HEATH HAYDEN Ot C 61 MALIGNANT NEOPLASM OF PROSTATE 03/31/2017 HAYDEN, HILAH S [employer] Ot C79.51 SECONDARY MALIGNANT NEOPLASM OF BONE 03/31/2017 STEVO HAYDENODM Birdie [employer] Ot R91.1 SOLITARY PULMONARY NODULE 03/31/2017 HEATH HAYDEN [employer] Ot R93.8 ABNORMAL FINDINGS ON DIAGNOSTIC IMAGING 03/31/2017 RAMONA ROBERT Lyudmila Ot C61 MALIGNANT NEOPLASM OF PROSTATE 03/31/2017 RAMONA ROBERT N Ot C79.51 SECONDARY MALIGNANT NEOPLASM OF BONE 03/31/2017 RAMONA ROBERT N Ot E11.22 TYPE 2 DIABETES MELLITUS W DIABETIC 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 03/31/2017 RAMONA ROBERT N Ot I25.10 ATHSCL HEART DISEASE OF [place] CORONARY 03/31/2017 RAMONA ROBERT N Ot N18.3 CHRONIC KIDNEY DISEASE, STAGE 3 (MODERAT 03/31/2017 RAMONA ROBERT N Ot Z79.899 OTHER PRISON (CURRENT) DRUG THERAPY 03/31/2017 RAMONA ROBERT N Ot Z87.891 PERSONAL HISTORY OF NICOTINE DEPENDENCE 03/31/2017 RAMONA ROBERT N Ot Z95.1 PRESENCE OF AORTOCORONARY BYPASS GRAFT 04/09/2017 RAMONA ROBERT N Ot C61 MALIGNANT NEOPLASM OF PROSTATE 04/09/2017 RAMONA ROBERT N Ot C79.51 SECONDARY MALIGNANT NEOPLASM OF BONE 04/09/2017 RAMONA ROBERT N Ot E11.22 TYPE 2 DIABETES MELLITUS W DIABETIC 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 04/09/2017 RAMONA ROBERT N Ot I25.10 ATHSCL HEART DISEASE OF [place] CORONARY 04/09/2017 RAMONA ROBERT N Ot N18.3 CHRONIC KIDNEY DISEASE, STAGE 3 (MODERAT 04/09/2017 RAMONA ROBERT N Ot Z79.899 OTHER SALES FACILITATOR (CURRENT) DRUG THERAPY 04/09/2017 RAMOAN ROBERT N Ot Z87.891 PERSONAL HISTORY OF [...] OF BONE 04/09/2017 KEE RN, JET C [employer] Ot C61 MALIGNANT NEOPLASM OF PROSTATE 04/09/2017 KEE RN, JET C [employer] Ot C79.51 SECONDARY MALIGNANT NEOPLASM OF BONE 04/09/2017 KEE RN, JET C [employer] Ot C61 MALIGNANT NEOPLASM OF PROSTATE 04/09/2017 KEE RN, JET C [employer] Ot C79.51 SECONDARY MALIGNANT NEOPLASM OF BONE 04/09/2017 KEE RN, JET C [employer] Ot C61 MALIGNANT NEOPLASM OF PROSTATE 04/09/2017 KEE RN, JET C [employer] Ot C79.51 SECONDARY MALIGNANT NEOPLASM OF BONE 04/09/2017 HEATH HAYDEN [employer] Ot C 61 MALIGNANT NEOPLASM OF PROSTATE 04/09/2017 HEATH HAYDENP Ot C79.51 SECONDARY MALIGNANT NEOPLASM OF BONE 04/09/2017 HEATH HAYDENP Ot E11.22 TYPE 2 DIABETES MELLITUS W DIABETIC 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 04/09/2017 HEATH HAYDENP Ot I25.10 ATHSCL HEART DISEASE OF [place] CORONARY 04/09/2017 HEATH HAYDENP Ot N18.3 CHRONIC KIDNEY DISEASE, STAGE 3 (MODERAT 04/09/2017 HEATH HAYDENP Ot Z79.899 OTHER PRISON (CURRENT) DRUG THERAPY 04/09/2017 HEATH HAYDENP Ot Z87.891 PERSONAL HISTORY OF NICOTINE DEPENDENCE 04/09/2017 HEATH HAYDENP Ot Z95.1 PRESENCE OF AORTOCORONARY BYPASS GRAFT 04/09/2017 HAYDEN HEATH Packer [employer] Ot C 61 MALIGNANT NEOPLASM OF PROSTATE 04/09/2017 HEATH HAYDEN [employer] Ot C79.51 SECONDARY MALIGNANT NEOPLASM OF BONE 04/09/2017 HEATH HAYDEN [employer] Ot R91.1 SOLITARY PULMONARY NODULE 04/09/2017 HEATH HAYDEN [employer] Ot R93.8 ABNORMAL FINDINGS ON DIAGNOSTIC IMAGING 04/09/2017 RAMONA ROBERT N Ot C61 MALIGNANT NEOPLASM OF PROSTATE 04/09/2017 RAMONA ROBERT N Ot C79.51 SECONDARY MALIGNANT NEOPLASM OF BONE 04/09/2017 JAKOBRAMONA PINTO N Ot E11.22 TYPE 2 DIABETES MELLITUS W DIABETIC 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 04/09/2017 RAMONA ROBERT N Ot I25.10 ATHSCL HEART DISEASE OF [place] CORONARY 04/09/2017 RAMONA ROBERT N Ot N18.3 CHRONIC KIDNEY DISEASE, STAGE 3 (MODERAT 04/09/2017 JAKOBCHERELLE PINTOAN N Ot Z79.899 OTHER SALES FACILITATOR (CURRENT) DRUG THERAPY 04/09/2017 RAMONA ROBERT N Ot Z87.891 PERSONAL HISTORY OF NICOTINE DEPENDENCE 04/09/2017 JAKOBRAMONA PINTO N Ot Z95.1 PRESENCE OF AORTOCORONARY BYPASS GRAFT 04/15/2017 RAMONA ROBERT N Ot C61 MALIGNANT NEOPLASM OF PROSTATE 04/15/2017 RAMONA ROBERT N Ot C79.51 SECONDARY MALIGNANT NEOPLASM OF BONE 04/15/2017 RAMONA ROBERT N Ot E11.22 TYPE 2 DIABETES MELLITUS W DIABETIC 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 04/15/2017 RAMONA ROBERT N Ot I25.10 ATHSCL HEART DISEASE OF [place] CORONARY 04/15/2017 RAMONA RBOERT N Ot N18.3 CHRONIC KIDNEY DISEASE, STAGE 3 (MODERAT 04/15/2017 JAKOBCHERELLE PINTOAN N Ot Z79.899 OTHER SALES FACILITATOR (CURRENT) DRUG THERAPY 04/15/2017 JAKOBCHERELLE PINTOAN N Ot Z87.891 PERSONAL HISTORY OF NICOTINE DEPENDENCE 04/15/2017 JAKOB, BOBAN N Ot Z95.1 PRESENCE OF AORTOCORONARY BYPASS GRAFT 05/18/2017 RAMONA ROBERT N Ot C61 MALIGNANT NEOPLASM OF PROSTATE 05/18/2017 JAKOB CHERELLEBIANCA N Ot C79.51 SECONDARY MALIGNANT NEOPLASM OF BONE 05/18/2017 JAKOB, BOBAN N Ot E11.22 TYPE 2 DIABETES MELLITUS W DIABETIC 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 05/18/2017 RAMONA ROBERT N Ot I25.10 ATHSCL HEART DISEASE OF [place] CORONARY 05/18/2017 RAMONA ROBERT N Ot N18.3 CHRONIC KIDNEY DISEASE, STAGE 3 (MODERAT 05/18/2017 RAMONA ROBERT N Ot Z79.899 OTHER PRISON (CURRENT) DRUG THERAPY 05/18/2017 RAMONA ROBERT N Ot Z87.891 PERSONAL HISTORY OF NICOTINE DEPENDENCE 05/18/2017 JAKOBRAMONA PINTO N Ot Z95.1 PRESENCE OF AORTOCORONARY BYPASS GRAFT 05/20/2017 RAMONA ROBERT N Ot C61 MALIGNANT NEOPLASM OF PROSTATE 05/20/2017 RAMONA ROBERT N Ot C79.51 SECONDARY MALIGNANT NEOPLASM OF BONE 05/20/2017 RAMONA ROBERT N Ot E11.22 TYPE 2 DIABETES MELLITUS W DIABETIC 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 05/20/2017 RAMONA ROBERT N Ot I25.10 ATHSCL HEART DISEASE OF [place] CORONARY 05/20/2017 RAMONA ROBERT N Ot N18.3 CHRONIC KIDNEY DISEASE, STAGE 3 (MODERAT 05/20/2017 JAKOBRAMONA PINTO N Ot Z79.899 OTHER SALES FACILITATOR (CURRENT) DRUG THERAPY 05/20/2017 RAMONA ROBERT N Ot Z87.891 PERSONAL HISTORY OF NICOTINE DEPENDENCE 05/20/2017 JAKOB BOBBIANCA N Ot Z95.1 PRESENCE OF AORTOCORONARY BYPASS GRAFT 05/25/2017 RAMONA ROBERT N Ot C61 MALIGNANT NEOPLASM OF PROSTATE 05/25/2017 RAMONA ROBERT N Ot C79.51 SECONDARY MALIGNANT NEOPLASM OF BONE 05/25/2017 RAMONA ROBERT N Ot E11.22 TYPE 2 DIABETES MELLITUS W DIABETIC 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 05/25/2017 JAKOBRAMONA PINTO N Ot I25.10 ATHSCL HEART DISEASE OF [place] CORONARY 05/25/2017 RAMONA ROBERT N Ot N18.3 CHRONIC KIDNEY DISEASE, STAGE 3 (MODERAT 05/25/2017 JAKOB, BOBBIANCA N Ot Z79.899 OTHER SALES FACILITATOR (CURRENT) DRUG THERAPY 05/25/2017 JAKOB, BOBBIANCA N Ot Z87.891 PERSONAL HISTORY OF NICOTINE DEPENDENCE 05/25/2017 JAKOB, BOBAN N Ot Z95.1 PRESENCE OF AORTOCORONARY BYPASS GRAFT 07/17/2017 RAMONA ROBERT N Ot C61 MALIGNANT NEOPLASM OF PROSTATE 07/17/2017 CHERELLE ROBERTAN N Ot C79.51 SECONDARY MALIGNANT NEOPLASM OF BONE 07/17/2017 JAKOB BOBAN N Ot E11.22 TYPE 2 DIABETES MELLITUS W DIABETIC 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 07/17/2017 RAMONA ROBERT N Ot I25.10 ATHSCL HEART DISEASE OF [place] CORONARY 07/17/2017 RAMONA ROBERT N Ot N18.3 CHRONIC KIDNEY DISEASE, STAGE 3 (MODERAT 07/17/2017 JAKOB, BOBAN N Ot Z79.899 OTHER SALES FACILITATOR (CURRENT) DRUG THERAPY 07/17/2017 CHERELLE ROBERTAN N Ot Z87.891 PERSONAL HISTORY OF NICOTINE DEPENDENCE 07/17/2017 JAKOB BOBAN N Ot Z95.1 PRESENCE OF AORTOCORONARY BYPASS GRAFT 08/03/2017 RAMONA ROBERT N Ot C61 MALIGNANT NEOPLASM OF PROSTATE 08/03/2017 RAMONA ROBERT N Ot C79.51 SECONDARY MALIGNANT NEOPLASM OF BONE 08/03/2017 JAKOBCHERELLE PINTOAN N Ot E11.22 TYPE 2 DIABETES MELLITUS W DIABETIC 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 08/03/2017 JAKOBRAMONA PINTO N Ot I25.10 ATHSCL HEART DISEASE OF [place] CORONARY 08/03/2017 RAMONA ROBERT N Ot N18.3 CHRONIC KIDNEY DISEASE, STAGE 3 (MODERAT 08/03/2017 JAKOB, BOBAN N Ot Z79.899 OTHER SALES FACILITATOR (CURRENT) DRUG THERAPY 08/03/2017 RAMONA ROBERT N Ot Z87.891 PERSONAL HISTORY OF NICOTINE DEPENDENCE 08/03/2017 RAMONA ROBERT N Ot Z95.1 PRESENCE OF AORTOCORONARY BYPASS GRAFT 09/24/2017 RAMONA ROBERT N Ot C61 MALIGNANT NEOPLASM OF PROSTATE 09/24/2017 JAKOBCHERELLE PINTOAN N Ot C79.51 SECONDARY MALIGNANT NEOPLASM OF BONE 09/24/2017 JAKOB BOBAN N Ot E11.22 TYPE 2 DIABETES MELLITUS W DIABETIC 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 09/24/2017 JAKOB BOBAN N Ot I25.10 ATHSCL HEART DISEASE OF [place] CORONARY 09/24/2017 JAKOBRAMONA PINTO N Ot N18.3 CHRONIC KIDNEY DISEASE, STAGE 3 (MODERAT 09/24/2017 JAKOB BOBAN N Ot Z79.899 OTHER SALES FACILITATOR (CURRENT) DRUG THERAPY 09/24/2017 RAMONA ROBERT N Ot Z87.891 PERSONAL HISTORY OF NICOTINE DEPENDENCE 09/24/2017 RAMONA ROBERT N Ot Z95.1 PRESENCE OF AORTOCORONARY BYPASS GRAFT 10/08/2017 RAMONA ROBERT N Ot C61 MALIGNANT NEOPLASM OF PROSTATE 10/08/2017 RAMONA ROBERT N Ot C79.51 SECONDARY MALIGNANT NEOPLASM OF BONE 10/08/2017 RAMONA ROBERT N Ot E11.22 TYPE 2 DIABETES MELLITUS W DIABETIC 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 10/08/2017 RAMONA ROBERT N Ot I25.10 ATHSCL HEART DISEASE OF [place] CORONARY 10/08/2017 RAMONA ROBERT N Ot N18.3 CHRONIC KIDNEY DISEASE, STAGE 3 (MODERAT 10/08/2017 RAMONA ROBERT N Ot Z79.899 OTHER SALES FACILITATOR (CURRENT) DRUG THERAPY 10/08/2017 RAMONA ROBERT N Ot Z87.891 PERSONAL HISTORY OF NICOTINE DEPENDENCE 10/08/2017 RAMONA ROBERT N Ot Z95.1 PRESENCE OF AORTOCORONARY BYPASS GRAFT 10/31/2017 RAMONA ROBERT N Ot C61 MALIGNANT NEOPLASM OF PROSTATE 10/31/2017 RAMONA ROBERT N Ot C79.51 SECONDARY MALIGNANT NEOPLASM OF BONE 10/31/2017 RAMONA ROBERT N Ot E11.22 TYPE 2 DIABETES MELLITUS W DIABETIC 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 10/31/2017 RAMONA ROBERT N Ot I25.10 ATHSCL HEART DISEASE OF [place] CORONARY 10/31/2017 RAMONA ROBERT N Ot N18.3 CHRONIC KIDNEY DISEASE, STAGE 3 (MODERAT 10/31/2017 RAMONA ROBERT N Ot Z79.899 OTHER PRISON (CURRENT) DRUG THERAPY 10/31/2017 RAMONA ROBERT N Ot Z87.891 PERSONAL HISTORY OF NICOTINE DEPENDENCE 10/31/2017 RAMONA ROBERT N Ot Z95.1 PRESENCE OF AORTOCORONARY BYPASS GRAFT 01/26/2018 KENYON SNYDER MD Ot C61 MALIGNANT NEOPLASM OF PROSTATE 01/26/2018 KENYON SNYDER MD Ot C79.51 SECONDARY MALIGNANT NEOPLASM OF BONE 01/26/2018 KENYON SNYDER MD Ot E11.22 TYPE 2 DIABETES MELLITUS W DIABETIC 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 01/26/2018 KENYON SNYDER MD Ot I25.10 ATHSCL HEART DISEASE OF [place] CORONARY 01/26/2018 KENYON SNYDER MD Ot N18.3 CHRONIC KIDNEY DISEASE, STAGE 3 (MODERAT 01/26/2018 KENYON SNYDER MD Ot Z79.899 OTHER PRISON (CURRENT) DRUG THERAPY 01/26/2018 KENYON SNYDER MD [...] OF BONE 01/26/2018 KEE RN, JET C [employer] Ot C61 MALIGNANT NEOPLASM OF PROSTATE 01/26/2018 SINDY-RAMIN RN, JET C [employer] Ot C79.51 SECONDARY MALIGNANT NEOPLASM OF BONE 01/26/2018 SINDY-RAMIN RN, JET C [employer] Ot C61 MALIGNANT NEOPLASM OF PROSTATE 01/26/2018 SINDY-RAMIN RN, JET C [employer] Ot C79.51 SECONDARY MALIGNANT NEOPLASM OF BONE 01/26/2018 SINDY-RAMIN RN, JET C [employer] Ot C61 MALIGNANT NEOPLASM OF PROSTATE 01/26/2018 KEE RN, JET C [employer] Ot C79.51 SECONDARY MALIGNANT NEOPLASM OF BONE 01/26/2018 HEATH HAYDEN [employer] Ot C 61 MALIGNANT NEOPLASM OF PROSTATE 01/26/2018 HEATH HAYDEN [employer] Ot C79.51 SECONDARY MALIGNANT NEOPLASM OF BONE 01/26/2018 HEATH HAYDEN [employer] Ot E11.22 TYPE 2 DIABETES MELLITUS W DIABETIC 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 01/26/2018 HEATH HAYDENP Ot I25.10 ATHSCL HEART DISEASE OF [place] CORONARY 01/26/2018 HEATH HAYDENP Ot N18.3 CHRONIC KIDNEY DISEASE, STAGE 3 (MODERAT 01/26/2018 HEATH HAYDENP Ot Z79.899 OTHER SALES FACILITATOR (CURRENT) DRUG THERAPY 01/26/2018 HEATH HAYDENP Ot Z87.891 PERSONAL HISTORY OF NICOTINE DEPENDENCE 01/26/2018 HEATH HAYDEN [employer] Ot Z95.1 PRESENCE OF AORTOCORONARY BYPASS GRAFT 01/26/2018 HEATH HAYDEN [employer] Ot C 61 MALIGNANT NEOPLASM OF PROSTATE 01/26/2018 HEATH HAYDEN [employer] Ot C79.51 SECONDARY MALIGNANT NEOPLASM OF BONE 01/26/2018 HEATH HAYDEN [employer] Ot R91.1 SOLITARY PULMONARY NODULE 01/26/2018 HAYDENHEATH Packer [employer] Ot R93.8 ABNORMAL FINDINGS ON DIAGNOSTIC IMAGING 01/26/2018 KENYON SNYDER MD Ot C61 MALIGNANT NEOPLASM OF PROSTATE 01/26/2018 KENYON SNYDER MD, Ot C79.51 SECONDARY MALIGNANT NEOPLASM OF BONE 01/26/2018 KENYON SNYDER MD Ot E11.22 TYPE 2 DIABETES MELLITUS W DIABETIC 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 01/26/2018 KENYON SNYDER MD Ot I25.10 ATHSCL HEART DISEASE OF [place] CORONARY 01/26/2018 KENYON SNYDER MD Ot N18.3 CHRONIC KIDNEY DISEASE, STAGE 3 (MODERAT 01/26/2018 KENYON SNYDER MD Ot Z79.899 OTHER SALES FACILITATOR (CURRENT) DRUG THERAPY 01/26/2018 KENYON SNYDER MD [...] OF BONE 01/26/2018 KEE CARDENAS, JET Rapp [employer] Ot C61 MALIGNANT NEOPLASM OF PROSTATE 01/26/2018 KEE CARDENAS, JET Rapp [employer] Ot C79.51 SECONDARY MALIGNANT NEOPLASM OF BONE 01/26/2018 KEE CARDENAS, JET Rapp [employer] Ot C61 MALIGNANT NEOPLASM OF PROSTATE 01/26/2018 KEE CARDENAS, JET Rapp [employer] Ot C79.51 SECONDARY MALIGNANT NEOPLASM OF BONE 01/26/2018 KEE RN, JET C [employer] Ot C61 MALIGNANT NEOPLASM OF PROSTATE 01/26/2018 KEE CARDENAS, JET C [employer] Ot C79.51 SECONDARY MALIGNANT NEOPLASM OF BONE 01/26/2018 HEATH HAYDEN [employer] Ot C 61 MALIGNANT NEOPLASM OF PROSTATE 01/26/2018 HEATH HAYDEN [employer] Ot C79.51 SECONDARY MALIGNANT NEOPLASM OF BONE 01/26/2018 HEATH HAYDEN [employer] Ot E11.22 TYPE 2 DIABETES MELLITUS W DIABETIC 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 01/26/2018 HEATH HAYDEN [employer] Ot I25.10 ATHSCL HEART DISEASE OF [place] CORONARY 01/26/2018 HEATH HAYDEN [employer] Ot N18.3 CHRONIC KIDNEY DISEASE, STAGE 3 (MODERAT 01/26/2018 HEATH HAYDEN [employer] Ot Z79.899 OTHER SALES FACILITATOR (CURRENT) DRUG THERAPY 01/26/2018 HAYDENHEATH Packer [employer] Ot Z87.891 PERSONAL HISTORY OF NICOTINE DEPENDENCE 01/26/2018 HEATH HAYDEN [employer] Ot Z95.1 PRESENCE OF AORTOCORONARY BYPASS GRAFT 01/26/2018 HAETH HAYDEN [employer] Ot C 61 MALIGNANT NEOPLASM OF PROSTATE 01/26/2018 HEATH HAYDEN [employer] Ot C79.51 SECONDARY MALIGNANT NEOPLASM OF BONE 01/26/2018 HEATH HAYDEN [employer] Ot R91.1 SOLITARY PULMONARY NODULE 01/26/2018 HEATH HAYDEN [employer] Ot R93.8 ABNORMAL FINDINGS ON DIAGNOSTIC IMAGING 01/26/2018 KENYON SNYDER MD Ot C61 MALIGNANT NEOPLASM OF PROSTATE 01/26/2018 KENYON SNYDER MD, Ot C79.51 SECONDARY MALIGNANT NEOPLASM OF BONE 01/26/2018 KENYON SNYDER MD Ot E11.22 TYPE 2 DIABETES MELLITUS W DIABETIC 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 01/26/2018 KENYON SNYDER MD Ot I25.10 ATHSCL HEART DISEASE OF [place] CORONARY 01/26/2018 KENYON SNYDER MD Ot N18.3 CHRONIC KIDNEY DISEASE, STAGE 3 (MODERAT 01/26/2018 KENYON SNYDER MD Ot Z79.899 OTHER PRISON (CURRENT) DRUG THERAPY 01/26/2018 KENYON SNYDER MD Ot Z87.891 PERSONAL HISTORY OF NICOTINE DEPENDENCE 01/26/2018 CLAUDIO MD, PRESCOTT Ot Z95.1 PRESENCE OF AORTOCORONARY BYPASS GRAFT 01/27/2018 KENYON SNYDER MD Ot C61 MALIGNANT NEOPLASM OF PROSTATE 01/27/2018 KENYON SNYDER MD Ot C79.51 SECONDARY MALIGNANT NEOPLASM OF BONE 01/27/2018 KENYON SNYDER MD Ot E11.22 TYPE 2 DIABETES MELLITUS W DIABETIC 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 01/27/2018 KENYON SNYDER MD Ot I25.10 ATHSCL HEART DISEASE OF [place] CORONARY 01/27/2018 KENYON SNYDER MD Ot N18.3 CHRONIC KIDNEY DISEASE, STAGE 3 (MODERAT 01/27/2018 KENYON SNYDER MD Ot Z79.899 OTHER SALES FACILITATOR (CURRENT) DRUG THERAPY 01/27/2018 KENYON SNYDER MD [...] SECONDARY MALIGNANT NEOPLASM OF BONE 03/09/2018 KENYON SNYDER MD Ot D64.9 ANEMIA, UNSPECIFIED 03/09/2018 KENYON SNYDER MD Ot E11.22 TYPE 2 DIABETES MELLITUS W DIABETIC 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 03/09/2018 KENYON SNYDER MD Ot I25.10 ATHSCL HEART DISEASE OF [place] CORONARY 03/09/2018 KENYON SNYDER MD Ot N18.3 CHRONIC KIDNEY DISEASE, STAGE 3 (MODERAT 03/09/2018 KENYON SNYDER MD Ot Z79.899 OTHER PRISON (CURRENT) DRUG THERAPY 03/09/2018 KENYON SNYDER MD [...] E11.22 TYPE 2 DIABETES MELLITUS W DIABETIC 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 03/17/2018 KENYON SNYDER MD Ot I25.10 ATHSCL HEART DISEASE OF [place] CORONARY 03/17/2018 KENYON SNYDER MD Ot N18.3 CHRONIC KIDNEY DISEASE, STAGE 3 (MODERAT 03/17/2018 KENYON SNYDER MD Ot Z79.899 OTHER PRISON (CURRENT) DRUG THERAPY 03/17/2018 KENYON SNYDER MD [...] E11.22 TYPE 2 DIABETES MELLITUS W DIABETIC 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 03/17/2018 KENYON SNYDER MD Ot I25.10 ATHSCL HEART DISEASE OF [place] CORONARY 03/17/2018 KENYON SNYDER MD Ot N18.3 CHRONIC KIDNEY DISEASE, STAGE 3 (MODERAT 03/17/2018 KENYON SNYDER MD Ot Z79.899 OTHER PRISON (CURRENT) DRUG THERAPY 03/17/2018 KENYON SNYDER MD [...] OF BONE 03/23/2018 KEE RN, JET C [employer] Ot C61 MALIGNANT NEOPLASM OF PROSTATE 03/23/2018 KEE RN, JET C [employer] Ot C79.51 SECONDARY MALIGNANT NEOPLASM OF BONE 03/23/2018 KEE RN, JET C [employer] Ot C61 MALIGNANT NEOPLASM OF PROSTATE 03/23/2018 KEE RN, EJT C [employer] Ot C79.51 SECONDARY MALIGNANT NEOPLASM OF BONE 03/23/2018 KEE RN, JET C [employer] Ot C61 MALIGNANT NEOPLASM OF PROSTATE 03/23/2018 KEE RN, JET C [employer] Ot C79.51 SECONDARY MALIGNANT NEOPLASM OF BONE 03/23/2018 HEATH HAYDEN [employer] Ot C 61 MALIGNANT NEOPLASM OF PROSTATE 03/23/2018 HEATH HAYDEN [employer] Ot C79.51 SECONDARY MALIGNANT NEOPLASM OF BONE 03/23/2018 HEATH HAYDEN [employer] Ot E11.22 TYPE 2 DIABETES MELLITUS W DIABETIC 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 03/23/2018 HEATH HAYDEN [employer] Ot I25.10 ATHSCL HEART DISEASE OF [place] CORONARY 03/23/2018 HEATH HAYDEN [employer] Ot N18.3 CHRONIC KIDNEY DISEASE, STAGE 3 (MODERAT 03/23/2018 HEATH HAYDEN [employer] Ot Z79.899 OTHER SALES FACILITATOR (CURRENT) DRUG THERAPY 03/23/2018 HEATH HAYDEN [employer] Ot Z87.891 PERSONAL HISTORY OF NICOTINE DEPENDENCE 03/23/2018 HEATH HAYDEN [employer] Ot Z95.1 PRESENCE OF AORTOCORONARY BYPASS GRAFT 03/23/2018 HEATH HAYDEN [employer] Ot C 61 MALIGNANT NEOPLASM OF PROSTATE 03/23/2018 HEATH HAYDEN [employer] Ot C79.51 SECONDARY MALIGNANT NEOPLASM OF BONE 03/23/2018 HEATH HAYDEN [employer] Ot R91.1 SOLITARY PULMONARY NODULE 03/23/2018 HEATH HAYDEN [employer] Ot R93.8 ABNORMAL FINDINGS ON DIAGNOSTIC IMAGING 03/23/2018 KENYON SNYDER MD Ot C61 MALIGNANT NEOPLASM OF PROSTATE 03/23/2018 KENYON SNYDER MD, Ot C79.51 SECONDARY MALIGNANT NEOPLASM OF BONE 03/23/2018 KENYON SNYDER MD Ot D64.9 ANEMIA, UNSPECIFIED 03/23/2018 KENYON SNYDER MD Ot E11.22 TYPE 2 DIABETES MELLITUS W DIABETIC 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 03/23/2018 KENYON SNYDER MD Ot I25.10 ATHSCL HEART DISEASE OF [place] CORONARY 03/23/2018 KENYON SNYDER MD Ot N18.3 CHRONIC KIDNEY DISEASE, STAGE 3 (MODERAT 03/23/2018 KENYON SNYDER MD Ot Z79.899 OTHER SALES FACILITATOR (CURRENT) DRUG THERAPY 03/23/2018 KENYON SNYDER MD Ot Z87.891 PERSONAL HISTORY OF NICOTINE DEPENDENCE 03/23/2018 KENYON SNYDER MD Ot Z95.1 PRESENCE OF AORTOCORONARY BYPASS GRAFT 03/23/2018 KENYON SNYDER MD Ot C61 MALIGNANT NEOPLASM OF PROSTATE 03/23/2018 KENYON SNYDER MD Ot C79.51 SECONDARY MALIGNANT NEOPLASM OF BONE 03/23/2018 KENYON SNYDER MD Ot K80.20 CALCULUS OF GALLBLADDER W/O CHOLECYSTITI 03/24/2018 KENYON SNYDER MD Ot C61 MALIGNANT NEOPLASM OF PROSTATE 03/24/2018 KENYON SNYDER MD Ot C79.51 SECONDARY MALIGNANT NEOPLASM OF BONE 03/24/2018 KENYON SNYDER MD Ot D64.9 ANEMIA, UNSPECIFIED 03/24/2018 KENYON SNYDER MD Ot E11.22 TYPE 2 DIABETES MELLITUS W DIABETIC 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 03/24/2018 KENYON SNYDER MD Ot I25.10 ATHSCL HEART DISEASE OF [place] CORONARY 03/24/2018 KENYON SNYDER MD Ot N18.3 CHRONIC KIDNEY DISEASE, STAGE 3 (MODERAT 03/24/2018 KENYON SNYDER MD Ot Z79.899 OTHER PRISON (CURRENT) DRUG THERAPY 03/24/2018 KENYON SNYDER MD [...] E11.22 TYPE 2 DIABETES MELLITUS W DIABETIC 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 03/24/2018 DRU SNYDER MDNER Ot I25.10 ATHSCL HEART DISEASE OF [place] CORONARY 03/24/2018 KENYON SNYDER MD Ot N18.3 CHRONIC KIDNEY DISEASE, STAGE 3 (MODERAT 03/24/2018 DRU SNYDER MDNER Ot Z79.899 OTHER SALES FACILITATOR (CURRENT) DRUG THERAPY 03/24/2018 DRU SNYDER MDNER [...] E11.22 TYPE 2 DIABETES MELLITUS W DIABETIC 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 04/26/2018 DRU SNYDER MDNER Ot I25.10 ATHSCL HEART DISEASE OF [place] CORONARY 04/26/2018 KENYON SNYDER MD Ot N18.3 CHRONIC KIDNEY DISEASE, STAGE 3 (MODERAT 04/26/2018 KENYON SNYDER MD Ot Z79.899 OTHER PRISON (CURRENT) DRUG THERAPY 04/26/2018 KENYON SNYDER MD [...] E11.22 TYPE 2 DIABETES MELLITUS W DIABETIC 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 04/27/2018 DRU SNYDER MDNER Ot I25.10 ATHSCL HEART DISEASE OF [place] CORONARY 04/27/2018 DRU SNYDER MDNER Ot N18.3 CHRONIC KIDNEY DISEASE, STAGE 3 (MODERAT 04/27/2018 KENYON SNYDER MD Ot Z79.899 OTHER PRISON (CURRENT) DRUG THERAPY 04/27/2018 KENYON SNYDER MD [...] E11.22 TYPE 2 DIABETES MELLITUS W DIABETIC 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 05/11/2018 KENYON SNYDER MD Ot I25.10 ATHSCL HEART DISEASE OF [place] CORONARY 05/11/2018 KENYON SNYDER MD Ot N18.3 CHRONIC KIDNEY DISEASE, STAGE 3 (MODERAT 05/11/2018 KENYON SNYDER MD Ot Z79.899 OTHER PRISON (CURRENT) DRUG THERAPY 05/11/2018 KENYON SNYDER MD, [...] OF BONE 06/09/2018 KEE RN, JET C [employer] Ot C61 MALIGNANT NEOPLASM OF PROSTATE 06/09/2018 KEE RN, JET C [employer] Ot C79.51 SECONDARY MALIGNANT NEOPLASM OF BONE 06/09/2018 KEE RN, JET C [employer] Ot C61 MALIGNANT NEOPLASM OF PROSTATE 06/09/2018 KEE RN, JET C [employer] Ot C79.51 SECONDARY MALIGNANT NEOPLASM OF BONE 06/09/2018 KEE RN, JET C [employer] Ot C61 MALIGNANT NEOPLASM OF PROSTATE 06/09/2018 KEE RN, JET C [employer] Ot C79.51 SECONDARY MALIGNANT NEOPLASM OF BONE 06/09/2018 HEATH HAYDEN [employer] Ot C 61 MALIGNANT NEOPLASM OF PROSTATE 06/09/2018 HEATH HAYDENP Ot C79.51 SECONDARY MALIGNANT NEOPLASM OF BONE 06/09/2018 HEATH HAYDEN Ot E11.22 TYPE 2 DIABETES MELLITUS W DIABETIC 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 06/09/2018 HEATH HAYDEN Ot I25.10 ATHSCL HEART DISEASE OF [place] CORONARY 06/09/2018 HAYDEN, HILAH S [employer] Ot N18.3 CHRONIC KIDNEY DISEASE, STAGE 3 (MODERAT 06/09/2018 HAYDENHEATH Packer [employer] Ot Z79.899 OTHER PRISON (CURRENT) DRUG THERAPY 06/09/2018 HAYDENHEATH Packer [employer] Ot Z87.891 PERSONAL HISTORY OF NICOTINE DEPENDENCE 06/09/2018 HAYDENHEATH Packer [employer] Ot Z95.1 PRESENCE OF AORTOCORONARY BYPASS GRAFT 06/09/2018 HAYDENHEATH Packer [employer] Ot C 61 MALIGNANT NEOPLASM OF PROSTATE 06/09/2018 HAYDENHEATH Packer [employer] Ot C79.51 SECONDARY MALIGNANT NEOPLASM OF BONE 06/09/2018 HAYDENHEATH Packer [employer] Ot R91.1 SOLITARY PULMONARY NODULE 06/09/2018 HAYDENHEATH Packer [employer] Ot R93.8 ABNORMAL FINDINGS ON DIAGNOSTIC IMAGING [...] E11.22 TYPE 2 DIABETES MELLITUS W DIABETIC 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 06/09/2018 KENYON SNYDER MD Ot I25.10 ATHSCL HEART DISEASE OF [place] CORONARY 06/09/2018 KENYON SNYDER MD Ot N18.3 CHRONIC KIDNEY DISEASE, STAGE 3 (MODERAT 06/09/2018 KENYON SNYDER MD Ot Z79.899 OTHER SALES FACILITATOR (CURRENT) DRUG THERAPY 06/09/2018 KENYON SNYDER MD [...] E11.22 TYPE 2 DIABETES MELLITUS W DIABETIC 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 06/09/2018 KENYON SNYDER MD Ot I25.10 ATHSCL HEART DISEASE OF [place] CORONARY 06/09/2018 KENYON SNYDER MD Ot N18.3 CHRONIC KIDNEY DISEASE, STAGE 3 (MODERAT 06/09/2018 KENYON SNYDER MD Ot Z79.899 OTHER SALES FACILITATOR (CURRENT) DRUG THERAPY 06/09/2018 KENYON SNYDER MD, [...] OF BONE 06/09/2018 KEE RN, JET C [employer] Ot C61 MALIGNANT NEOPLASM OF PROSTATE 06/09/2018 KEE RN, JET C [employer] Ot C79.51 SECONDARY MALIGNANT NEOPLASM OF BONE 06/09/2018 SINDY-RAMIN RN, JET C [employer] Ot C61 MALIGNANT NEOPLASM OF PROSTATE 06/09/2018 KEE RN, JET C [employer] Ot C79.51 SECONDARY MALIGNANT NEOPLASM OF BONE 06/09/2018 KEE RN, JET C [employer] Ot C61 MALIGNANT NEOPLASM OF PROSTATE 06/09/2018 KEE RN, JET C [employer] Ot C79.51 SECONDARY MALIGNANT NEOPLASM OF BONE 06/09/2018 HEATH HAYDEN [employer] Ot C 61 MALIGNANT NEOPLASM OF PROSTATE 06/09/2018 HEATH HAYDEN [employer] Ot C79.51 SECONDARY MALIGNANT NEOPLASM OF BONE 06/09/2018 HEATH HAYDENP Ot E11.22 TYPE 2 DIABETES MELLITUS W DIABETIC 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 06/09/2018 HEATH HAYDENP Ot I25.10 ATHSCL HEART DISEASE OF [place] CORONARY 06/09/2018 HEATH HAYDENP Ot N18.3 CHRONIC KIDNEY DISEASE, STAGE 3 (MODERAT 06/09/2018 HAYDENHEATH Packer [employer] Ot Z79.899 OTHER PRISON (CURRENT) DRUG THERAPY 06/09/2018 HAYDENHEATH Packer [employer] Ot Z87.891 PERSONAL HISTORY OF NICOTINE DEPENDENCE 06/09/2018 HAYDENHEATH Packer [employer] Ot Z95.1 PRESENCE OF AORTOCORONARY BYPASS GRAFT 06/09/2018 HAYDENHEATH Packer [employer] Ot C 61 MALIGNANT NEOPLASM OF PROSTATE 06/09/2018 HEATH HAYDEN [employer] Ot C79.51 SECONDARY MALIGNANT NEOPLASM OF BONE 06/09/2018 HEATH HAYDEN [employer] Ot R91.1 SOLITARY PULMONARY NODULE 06/09/2018 HAYDENHEATH Packer [employer] Ot R93.8 ABNORMAL FINDINGS ON DIAGNOSTIC IMAGING [...] E11.22 TYPE 2 DIABETES MELLITUS W DIABETIC 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 06/09/2018 KENYON SNYDER MD Ot I25.10 ATHSCL HEART DISEASE OF [place] CORONARY 06/09/2018 KENYON SNYDER MD Ot N18.3 CHRONIC KIDNEY DISEASE, STAGE 3 (MODERAT 06/09/2018 KENYON SNYDER MD Ot Z79.899 OTHER SALES FACILITATOR (CURRENT) DRUG THERAPY 06/09/2018 KENYON SNYDER MD [...] E11.22 TYPE 2 DIABETES MELLITUS W DIABETIC 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 06/10/2018 KENYON SNYDER MD Ot I25.10 ATHSCL HEART DISEASE OF [place] CORONARY 06/10/2018 KENYON SNYDER MD Ot N18.3 CHRONIC KIDNEY DISEASE, STAGE 3 (MODERAT 06/10/2018 KENYON SNYDER MD Ot Z79.899 OTHER SALES FACILITATOR (CURRENT) DRUG THERAPY 06/10/2018 KENYON SNYDER MD [...] APRN Ot I25.10 ATHSCL HEART DISEASE OF [place] CORONARY 06/10/2018 JESS MORGAN APRN Ot M54 [...] APRN Ot I25.10 ATHSCL HEART DISEASE OF [place] CORONARY 06/13/2018 JESS MORGAN APRN Ot M54 .9 DORSALGIA, UNSPECIFIED 06/13/2018 JESS MORGAN APRN Ot N18 .9 CHRONIC KIDNEY DISEASE, UNSPECIFIED 06/13/2018 MORGAN, PETER J SALES EXPERT Ot N28.82 MEGALOURETER 06/13/2018 JESS MORGAN SALES EXPERT Ot R10.31 RIGHT LOWER QUADRANT PAIN 06/13/2018 JESS MORGAN SALES EXPERT Ot R10.32 LEFT LOWER QUADRANT PAIN 06/13/2018 JESS MORGAN SALES EXPERT Ot Z85.46 PERSONAL HISTORY OF MALIGNANT NEOPLASM O 06/13/2018 JESS MORGAN SALES EXPERT Ot Z85.830 PERSONAL HISTORY OF MALIGNANT NEOPLASM O 06/13/2018 JESS MORGAN SALES EXPERT Ot Z87.891 PERSONAL HISTORY OF NICOTINE DEPENDENCE 06/13/2018 JESS MORGAN SALES EXPERT Ot Z95 .1 PRESENCE OF AORTOCORONARY BYPASS GRAFT 06/13/2018 JESS MORGAN SALES EXPERT Ot C61 MALIGNANT NEOPLASM OF PROSTATE 06/13/2018 JESS MORGAN SALES EXPERT Ot C79.51 SECONDARY MALIGNANT NEOPLASM OF BONE 06/13/2018 JESS MORGAN SALES EXPERT Ot F03.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 BEHAVIORAL 06/13/2018 JESS MORGAN SALES EXPERT Ot I25.10 ATHSCL HEART DISEASE OF [place] CORONARY 06/13/2018 JESS MORGAN SALES EXPERT Ot M54 .9 DORSALGIA, UNSPECIFIED 06/13/2018 JESS MORGAN SALES EXPERT Ot N18 .9 CHRONIC KIDNEY DISEASE, UNSPECIFIED 06/13/2018 JESS MORGAN SALES EXPERT Ot N28.82 MEGALOURETER 06/13/2018 JESS MORGAN SALES EXPERT Ot R10.31 RIGHT LOWER QUADRANT PAIN 06/13/2018 JESS MORGAN SALES EXPERT Ot R10.32 LEFT LOWER QUADRANT PAIN 06/13/2018 JESS MORGAN SALES EXPERT Ot Z87.891 PERSONAL HISTORY OF NICOTINE DEPENDENCE 06/13/2018 JESS MORGAN SALES EXPERT Ot Z95 .1 PRESENCE OF AORTOCORONARY BYPASS GRAFT 07/07/2018 ISIAH GAMBINO MD Ot 185 MALIGN NEOPL PROSTATE 07/07/2018 ISIAH GAMBINO MD Ot 185 MALIGN NEOPL PROSTATE 07/07/2018 ISIAH GAMBINO MD Ot V58.0 ENCOUNTER FOR RADIOTHERAPY 07/07/2018 ISIAH GAMBINO MD Ot C61 MALIGNANT NEOPLASM OF PROSTATE 07/07/2018 ISIAH GAMBINO MD Ot C79.5 1 SECONDARY MALIGNANT NEOPLASM OF BONE 07/07/2018 KEE CARDENAS, JET C [employer] Ot C61 MALIGNANT NEOPLASM OF PROSTATE 07/07/2018 KEE RN, JET C [employer] Ot C79.51 SECONDARY MALIGNANT NEOPLASM OF BONE 07/07/2018 KEE RN, JET C [employer] Ot C61 MALIGNANT NEOPLASM OF PROSTATE 07/07/2018 KEE RN, JET C [employer] Ot C79.51 SECONDARY MALIGNANT NEOPLASM OF BONE 07/07/2018 KEE CARDENAS, JET C [employer] Ot C61 MALIGNANT NEOPLASM OF PROSTATE 07/07/2018 KEE RN, JET C [employer] Ot C79.51 SECONDARY MALIGNANT NEOPLASM OF BONE 07/07/2018 HEATH HAYDEN [employer] Ot C 61 MALIGNANT NEOPLASM OF PROSTATE 07/07/2018 HEATH HAYDEN [employer] Ot C79.51 SECONDARY MALIGNANT NEOPLASM OF BONE 07/07/2018 HEATH HAYDEN [employer] Ot E11.22 TYPE 2 DIABETES MELLITUS W DIABETIC 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 07/07/2018 HEATH HAYDEN [employer] Ot I25.10 ATHSCL HEART DISEASE OF [place] CORONARY 07/07/2018 HEATH HAYDEN [employer] Ot N18.3 CHRONIC KIDNEY DISEASE, STAGE 3 (MODERAT 07/07/2018 HEATH HAYDEN [employer] Ot Z79.899 OTHER SALES FACILITATOR (CURRENT) DRUG THERAPY 07/07/2018 HEATH HAYDEN [employer] Ot Z87.891 PERSONAL HISTORY OF NICOTINE DEPENDENCE 07/07/2018 HEATH HAYDEN [employer] Ot Z95.1 PRESENCE OF AORTOCORONARY BYPASS GRAFT 07/07/2018 HEATH HAYDEN [employer] Ot C 61 MALIGNANT NEOPLASM OF PROSTATE 07/07/2018 HEATH HAYDEN [employer] Ot C79.51 SECONDARY MALIGNANT NEOPLASM OF BONE 07/07/2018 HEATH HAYDEN [employer] Ot R91.1 SOLITARY PULMONARY NODULE 07/07/2018 HEATH HAYDEN [employer] Ot R93.8 ABNORMAL FINDINGS ON DIAGNOSTIC IMAGING [...] E11.22 TYPE 2 DIABETES MELLITUS W DIABETIC 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 07/07/2018 KENYON SNYDER MD, Ot F03.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 BEHAVIORAL 07/07/2018 KENYON SNYDER MD, Ot I25.10 ATHSCL HEART DISEASE OF [place] CORONARY 07/07/2018 KENYON SNYDER MD Ot M25.511 PAIN IN RIGHT SHOULDER 07/07/2018 KENYON SNYDER MD Ot M62.81 MUSCLE WEAKNESS (GENERALIZED) 07/07/2018 KENYON SNYDER MD Ot N18.4 CHRONIC KIDNEY DISEASE, STAGE 4 (SEVERE) 07/07/2018 KENYON SNYDER MD Ot R07.89 OTHER CHEST PAIN 07/07/2018 KENYON SNYDER MD Ot Z79.899 OTHER SALES FACILITATOR (CURRENT) DRUG THERAPY 07/07/2018 KENYON SNYDER MD, [...] E11.22 TYPE 2 DIABETES MELLITUS W DIABETIC 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 07/11/2018 KENYNO SNYDER MD Ot F03.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 BEHAVIORAL 07/11/2018 KENYON SNYDER MD Ot I25.10 ATHSCL HEART DISEASE OF [place] CORONARY 07/11/2018 KENYON SNYDER MD Ot M25.511 PAIN IN RIGHT SHOULDER 07/11/2018 KENYON SNYDER MD Ot M62.81 MUSCLE WEAKNESS (GENERALIZED) 07/11/2018 KENYON SNYDER MD Ot N18.4 CHRONIC KIDNEY DISEASE, STAGE 4 (SEVERE) 07/11/2018 KENYON SNYDER MD Ot R07.89 OTHER CHEST PAIN 07/11/2018 KENYON SNYDER MD Ot Z79.899 OTHER SALES FACILITATOR (CURRENT) DRUG THERAPY 07/11/2018 KENYON SNYDER MD [...] E11.22 TYPE 2 DIABETES MELLITUS W DIABETIC 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 07/13/2018 KENYON SNYDER MD Ot F03.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 BEHAVIORAL 07/13/2018 KENYON SNYDER MD Ot I25.10 ATHSCL HEART DISEASE OF [place] CORONARY 07/13/2018 KENYON SNYDER MD Ot M25.511 PAIN IN RIGHT SHOULDER 07/13/2018 KENYON SNYDER MD Ot M62.81 MUSCLE WEAKNESS (GENERALIZED) 07/13/2018 KENYON SNYDER MD Ot N18.4 CHRONIC KIDNEY DISEASE, STAGE 4 (SEVERE) 07/13/2018 KENYON SNYDER MD Ot R07.89 OTHER CHEST PAIN 07/13/2018 KENYON SNYDER MD Ot Z79.899 OTHER SALES FACILITATOR (CURRENT) DRUG THERAPY 07/13/2018 KENYON SNYDER MD [...] E11.22 TYPE 2 DIABETES MELLITUS W DIABETIC 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 07/21/2018 KENYON SNYDER MD Ot F03.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 BEHAVIORAL 07/21/2018 KENYON SNYDER MD Ot I25.10 ATHSCL HEART DISEASE OF [place] CORONARY 07/21/2018 KENYON SNYDER MD Ot M25.511 PAIN IN RIGHT SHOULDER 07/21/2018 KENYON SNYDER MD Ot M62.81 MUSCLE WEAKNESS (GENERALIZED) 07/21/2018 KENYON SNYDER MD Ot N18.4 CHRONIC KIDNEY DISEASE, STAGE 4 (SEVERE) 07/21/2018 KENYON SNYDER MD Ot R07.89 OTHER CHEST PAIN 07/21/2018 KENYON SNYDER MD Ot Z79.899 OTHER PRISON (CURRENT) DRUG THERAPY 07/21/2018 KENYON SNYDER MD [...] E11.22 TYPE 2 DIABETES MELLITUS W DIABETIC 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 07/25/2018 KENYON SNYDER MD Ot F03.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 BEHAVIORAL 07/25/2018 KENYON SNYDER MD Ot I25.10 ATHSCL HEART DISEASE OF [place] CORONARY 07/25/2018 KENYON SNYDER MD Ot M25.511 PAIN IN RIGHT SHOULDER 07/25/2018 KENYON SNYDER MD Ot M62.81 MUSCLE WEAKNESS (GENERALIZED) 07/25/2018 KENYON SNYDER MD Ot N18.4 CHRONIC KIDNEY DISEASE, STAGE 4 (SEVERE) 07/25/2018 KENYON SNYDER MD Ot R07.89 OTHER CHEST PAIN 07/25/2018 KENYON SNYDER MD Ot Z79.899 OTHER PRISON (CURRENT) DRUG THERAPY 07/25/2018 KENYON SNYDER MD [...] E11.22 TYPE 2 DIABETES MELLITUS W DIABETIC 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 07/25/2018 KENYON SNYDER MD Ot F03.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 BEHAVIORAL 07/25/2018 KENYON SNYDER MD Ot I25.10 ATHSCL HEART DISEASE OF [place] CORONARY 07/25/2018 KENYON SNYDER MD Ot M25.511 PAIN IN RIGHT SHOULDER 07/25/2018 KENYON SNYDER MD Ot M62.81 MUSCLE WEAKNESS (GENERALIZED) 07/25/2018 KENYON SNYDER MD Ot N18.4 CHRONIC KIDNEY DISEASE, STAGE 4 (SEVERE) 07/25/2018 KENYON SNYDER MD Ot R07.89 OTHER CHEST PAIN 07/25/2018 KENYON SNYDER MD Ot Z79.899 OTHER SALES FACILITATOR (CURRENT) DRUG THERAPY 07/25/2018 KENYON SNYDER MD [...] E11.22 TYPE 2 DIABETES MELLITUS W DIABETIC 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 07/27/2018 KENYON SNYDER MD Ot F03.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 BEHAVIORAL 07/27/2018 KENYON SNDYER MD Ot I25.10 ATHSCL HEART DISEASE OF [place] CORONARY 07/27/2018 KENYON SNYDER MD Ot M25.511 PAIN IN RIGHT SHOULDER 07/27/2018 KENYON SNYDER MD Ot M62.81 MUSCLE WEAKNESS (GENERALIZED) 07/27/2018 KENYON SNYDER MD Ot N18.4 CHRONIC KIDNEY DISEASE, STAGE 4 (SEVERE) 07/27/2018 KENYON SNYDER MD Ot R07.89 OTHER CHEST PAIN 07/27/2018 KENYON SNYDER MD Ot Z79.899 OTHER SALES FACILITATOR (CURRENT) DRUG THERAPY 07/27/2018 KENYON SNYDER MD Ot Z87.891 PERSONAL HISTORY OF NICOTINE DEPENDENCE 07/27/2018 KENYON SNYDER MD Ot Z95.1 PRESENCE OF AORTOCORONARY BYPASS GRAFT 09/12/2018 KENYON SNYDER MD Ot C61 MALIGNANT NEOPLASM OF PROSTATE 09/12/2018 KENYON SNYDER MD Ot C79.51 SECONDARY MALIGNANT NEOPLASM OF BONE 09/12/2018 KENYON SNYDER MD Ot Z79.899 OTHER SALES FACILITATOR (CURRENT) DRUG THERAPY 09/14/2018 KENYON SNYDER MD Ot C61 MALIGNANT NEOPLASM OF PROSTATE 09/14/2018 KENYON SNYDER MD Ot C79.51 SECONDARY MALIGNANT NEOPLASM OF BONE 09/14/2018 KENYON SNYDER MD Ot Z79.899 OTHER SALES FACILITATOR (CURRENT) DRUG THERAPY 10/05/2018 KENYON SNYDER MD Ot C61 MALIGNANT NEOPLASM OF PROSTATE 10/05/2018 KENYON SNYDER MD Ot C79.51 SECONDARY MALIGNANT NEOPLASM OF BONE 10/05/2018 KENYON SNYDER MD Ot K80.20 CALCULUS OF GALLBLADDER W/O CHOLECYSTITI 10/25/2018 KENYON SNYDER MD Ot C61 MALIGNANT NEOPLASM OF PROSTATE 10/25/2018 KENYON SNYDER MD Ot C79.51 SECONDARY MALIGNANT NEOPLASM OF BONE 10/25/2018 KENYON SNYDER MD Ot Z79.899 OTHER SALES FACILITATOR (CURRENT) DRUG THERAPY 10/27/2018 KENYON SNYDER MD Ot C61 MALIGNANT NEOPLASM OF PROSTATE 10/27/2018 KENYON SNYDER MD Ot C79.51 SECONDARY MALIGNANT NEOPLASM OF BONE 10/27/2018 KENYON SNYDER MD Ot Z79.899 OTHER SALES FACILITATOR (CURRENT) DRUG THERAPY 10/28/2018 Ot 185 MALIGN NEOPL PROSTATE 10/28/2018 IMMANUEL CAPPS, ISIAH [place] Ot 185 MALIGN NEOPL PROSTATE 10/28/2018 IMMANUEL CAPPS, ISIAH [place] Ot V58.0 ENCOUNTER FOR RADIOTHERAPY 10/28/2018 IMMANUEL CAPPS, ISIAH [place] Ot C61 MALIGNANT NEOPLASM OF PROSTATE 10/28/2018 IMMANUEL CAPPS, ISIAH [place] Ot C79.5 1 SECONDARY MALIGNANT NEOPLASM OF BONE 10/28/2018 KEE RN, JET C [employer] Ot C61 MALIGNANT NEOPLASM OF PROSTATE 10/28/2018 SINDY-RAMIN RN, JET C [employer] Ot C79.51 SECONDARY MALIGNANT NEOPLASM OF BONE 10/28/2018 SINDY-RAMIN RN, JET C [employer] Ot C61 MALIGNANT NEOPLASM OF PROSTATE 10/28/2018 SINDY-RAMIN RN, JET C [employer] Ot C79.51 SECONDARY MALIGNANT NEOPLASM OF BONE 10/28/2018 SINDY-RAMIN RN, JET C [employer] Ot C61 MALIGNANT NEOPLASM OF PROSTATE 10/28/2018 KEE RN, JET C [employer] Ot C79.51 SECONDARY MALIGNANT NEOPLASM OF BONE 10/28/2018 HEATH HAYDEN [employer] Ot C 61 MALIGNANT NEOPLASM OF PROSTATE 10/28/2018 HEATH HAYDEN [employer] Ot C79.51 SECONDARY MALIGNANT NEOPLASM OF BONE 10/28/2018 HEATH HAYDEN [employer] Ot E11.22 TYPE 2 DIABETES MELLITUS W DIABETIC 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.] 10/28/2018 KENYON SNYDER MD Ot Z79.899 OTHER SALES FACILITATOR (CURRENT) DRUG THERAPY 10/28/2018 IMMANUEL CAPPS, ISIAH [...] 10/28/2018 KENYON SNYDER MD Ot Z79.899 OTHER SALES FACILITATOR (CURRENT) DRUG THERAPY 12/21/2018 IMMANUEL CAPPS, ISIAH [place] Ot 185 MALIGN NEOPL PROSTATE 12/21/2018 ISIAH GAMBINO MD Ot V58.0 ENCOUNTER FOR RADIOTHERAPY 12/21/2018 IMMANUEL CAPPS, ISIAH [place] Ot C61 MALIGNANT NEOPLASM OF PROSTATE 12/21/2018 ISIAH GAMBINO MD Ot C79.5 1 SECONDARY MALIGNANT NEOPLASM OF BONE 12/21/2018 KEE RN, JET C [employer] Ot C61 MALIGNANT NEOPLASM OF PROSTATE 12/21/2018 KEE RN, JET C [employer] Ot C79.51 SECONDARY MALIGNANT NEOPLASM OF BONE 12/21/2018 SINDY-RAMIN RN, JET C [employer] Ot C61 MALIGNANT NEOPLASM OF PROSTATE 12/21/2018 KEE RN, JET C [employer] Ot C79.51 SECONDARY MALIGNANT NEOPLASM OF BONE 12/21/2018 KEE RN, JET C [employer] Ot C61 MALIGNANT NEOPLASM OF PROSTATE 12/21/2018 KEE RN, JET C [employer] Ot C79.51 SECONDARY MALIGNANT NEOPLASM OF BONE 12/21/2018 HEATH HAYDENP Ot C 61 MALIGNANT NEOPLASM OF PROSTATE 12/21/2018 HEATH HAYDENP Ot C79.51 SECONDARY MALIGNANT NEOPLASM OF BONE 12/21/2018 HEATH HAYDENP Ot E11.22 TYPE 2 DIABETES MELLITUS W DIABETIC 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 12/21/2018 HEATH HAYDENP Ot I25.10 ATHSCL HEART DISEASE OF [place] CORONARY 12/21/2018 HEATH HAYDENP Ot N18.3 CHRONIC KIDNEY DISEASE, STAGE 3 (MODERAT 12/21/2018 HEATH HAYDENP Ot Z79.899 OTHER PRISON (CURRENT) DRUG THERAPY 12/21/2018 HEATH HAYDEN Ot Z87.891 PERSONAL HISTORY OF NICOTINE DEPENDENCE 12/21/2018 HEATH HAYDENP Ot Z95.1 PRESENCE OF AORTOCORONARY BYPASS GRAFT 12/21/2018 HEATH HAYDENP Ot C 61 MALIGNANT NEOPLASM OF PROSTATE 12/21/2018 HEATH HAYDENP Ot C79.51 SECONDARY MALIGNANT NEOPLASM OF BONE 12/21/2018 HEATH HAYDEN [employer] Ot R91.1 SOLITARY PULMONARY NODULE 12/21/2018 HAYDEN HEATH S [employer] Ot R93.8 ABNORMAL FINDINGS ON DIAGNOSTIC IMAGING [...] 12/21/2018 KENYON SNYDER MD Ot Z79.899 OTHER PRISON (CURRENT) DRUG THERAPY 12/21/2018 KENYON SNYDER MD Ot C61 MALIGNANT NEOPLASM OF PROSTATE 12/21/2018 KENYON SNYDER MD Ot C79.51 SECONDARY MALIGNANT NEOPLASM OF BONE 12/21/2018 KENYON SNYDER MD Ot Z79.899 OTHER SALES FACILITATOR (CURRENT) DRUG THERAPY 12/21/2018 KENYON SNYDER MD Ot C61 MALIGNANT NEOPLASM OF PROSTATE 12/21/2018 KENYON SNYDER MD Ot C79.51 SECONDARY MALIGNANT NEOPLASM OF BONE 12/21/2018 KENYON SNYDER MD Ot Z79.899 OTHER SALES FACILITATOR (CURRENT) DRUG THERAPY 01/06/2019 KENYON SNYDER MD Ot C61 MALIGNANT NEOPLASM OF PROSTATE 01/06/2019 KENYON SNYDER MD Ot C79.51 SECONDARY MALIGNANT NEOPLASM OF BONE 01/06/2019 KENYON SNYDER MD Ot Z79.899 OTHER PRISON (CURRENT) DRUG THERAPY 02/09/2019 KENYON SNYDER MD Ot C61 MALIGNANT NEOPLASM OF PROSTATE 02/09/2019 KENYON SNYDER MD Ot C79.51 SECONDARY MALIGNANT NEOPLASM OF BONE 02/09/2019 KENYON SNYDER MD Ot Z79.899 OTHER PRISON (CURRENT) DRUG THERAPY 02/14/2019 KENYON SNYDER MD, Ot C61 MALIGNANT NEOPLASM OF PROSTATE 02/14/2019 KENYON SNYDER MD Ot C79.51 SECONDARY MALIGNANT NEOPLASM OF BONE 02/14/2019 KENYON SNYDER MD Ot Z79.899 OTHER PRISON (CURRENT) DRUG THERAPY 03/12/2019 KENYON SNYDER MD, Ot C61 MALIGNANT NEOPLASM OF PROSTATE 03/12/2019 KENYON SNYDER MD, Ot C79.51 SECONDARY MALIGNANT NEOPLASM OF BONE 03/12/2019 KENYON SNYDER MD, Ot D64.9 ANEMIA, UNSPECIFIED 03/12/2019 KENYON SNYDER MD Ot E11.22 TYPE 2 DIABETES MELLITUS W DIABETIC 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 03/12/2019 KENYON SNYDER MD Ot E78.00 PURE HYPERCHOLESTEROLEMIA, UNSPECIFIED 03/12/2019 KENYON SNYDER MD Ot F03.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 BEHAVIORAL 03/12/2019 KENYON SNYDER MD Ot G47.00 INSOMNIA, UNSPECIFIED 03/12/2019 KENYON SNYDER MD Ot I25.10 ATHSCL HEART DISEASE OF [place] CORONARY 03/12/2019 KENYON SNYDER MD, Ot M62.81 MUSCLE WEAKNESS (GENERALIZED) 03/12/2019 KENYON SNYDER MD Ot N18.4 CHRONIC KIDNEY DISEASE, STAGE 4 (SEVERE) 03/12/2019 KENYON SNYDER MD Ot R25.3 FASCICULATION 03/12/2019 KENYON SNYDER MD, Ot Z79.899 OTHER SALES FACILITATOR (CURRENT) DRUG THERAPY 03/14/2019 ISIAH GAMBINO MD, Ot 185 MALIGN NEOPL PROSTATE 03/14/2019 ISIAH GAMBINO MD Ot V58.0 ENCOUNTER FOR RADIOTHERAPY 03/14/2019 ISIAH GAMBINO MD, Ot C61 MALIGNANT NEOPLASM OF PROSTATE 03/14/2019 ISIAH GAMBINO MD, Ot C79.5 1 SECONDARY MALIGNANT NEOPLASM OF BONE 03/14/2019 EKE CARDENAS, JET LAMA Ot C61 MALIGNANT NEOPLASM OF PROSTATE 03/14/2019 KEE CARDENAS, JET LAMA Ot C79.51 SECONDARY MALIGNANT NEOPLASM OF BONE 03/14/2019 KEE RN, JET C [employer] Ot C61 MALIGNANT NEOPLASM OF PROSTATE 03/14/2019 KEE RN, JET C [employer] Ot C79.51 SECONDARY MALIGNANT NEOPLASM OF BONE 03/14/2019 KEE RN, JET C [employer] Ot C61 MALIGNANT NEOPLASM OF PROSTATE 03/14/2019 KEE RN, JET C [employer] Ot C79.51 SECONDARY MALIGNANT NEOPLASM OF BONE 03/14/2019 STEVO HAYDENDOM Birdie [employer] Ot C 61 MALIGNANT NEOPLASM OF PROSTATE 03/14/2019 STEVO HAYDENDOM S [employer] Ot C79.51 SECONDARY MALIGNANT NEOPLASM OF BONE 03/14/2019 STEVO HAYDENDOM Packer [employer] Ot E11.22 TYPE 2 DIABETES MELLITUS W DIABETIC 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 03/14/2019 HEATH HAYDEN S [employer] Ot I25.10 ATHSCL HEART DISEASE OF [place] CORONARY 03/14/2019 STEVO HAYDENDOM S [employer] Ot N18.3 CHRONIC KIDNEY DISEASE, STAGE 3 (MODERAT 03/14/2019 HEATH HAYDEN S [employer] Ot Z79.899 OTHER SALES FACILITATOR (CURRENT) DRUG THERAPY 03/14/2019 [place] HEATH S [employer] Ot Z87.891 PERSONAL HISTORY OF NICOTINE DEPENDENCE 03/14/2019 STEVO HAYDENDOM S [employer] Ot Z95.1 PRESENCE OF AORTOCORONARY BYPASS GRAFT 03/14/2019 HEATH HAYDEN S [employer] Ot C 61 MALIGNANT NEOPLASM OF PROSTATE 03/14/2019 HEATH HAYDEN S [employer] Ot C79.51 SECONDARY MALIGNANT NEOPLASM OF BONE 03/14/2019 HEATH HAYDEN [employer] Ot R91.1 SOLITARY PULMONARY NODULE 03/14/2019 HEATH HAYDEN S [employer] Ot R93.8 ABNORMAL FINDINGS ON DIAGNOSTIC IMAGING [...] 03/14/2019 KENYON SNYDER MD, Ot Z79.899 OTHER PRISON (CURRENT) DRUG THERAPY 03/14/2019 KENYON SNYDER MD, Ot C61 MALIGNANT NEOPLASM OF PROSTATE 03/14/2019 KENYON SNYDER MD, Ot C79.51 SECONDARY MALIGNANT NEOPLASM OF BONE 03/14/2019 KENYON SNYDER MD Ot D64.9 ANEMIA, UNSPECIFIED 03/14/2019 KENYON SNYDER MD Ot E11.22 TYPE 2 DIABETES MELLITUS W DIABETIC 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 03/14/2019 KENYON SNYDER MD Ot E78.00 PURE HYPERCHOLESTEROLEMIA, UNSPECIFIED 03/14/2019 KENYON SNYDER MD Ot F03.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 BEHAVIORAL 03/14/2019 KENYON SNYDER MD, Ot G47.00 INSOMNIA, UNSPECIFIED 03/14/2019 KENYON SNYDER MD Ot I25.10 ATHSCL HEART DISEASE OF [place] CORONARY 03/14/2019 KENYON SNYDER MD Ot M62.81 MUSCLE WEAKNESS (GENERALIZED) 03/14/2019 KENYON SNYDER MD Ot N18.4 CHRONIC KIDNEY DISEASE, STAGE 4 (SEVERE) 03/14/2019 KENYON SNYDER MD Ot R25.3 FASCICULATION 03/14/2019 KENYON SNYDER MD Ot Z79.899 OTHER SALES FACILITATOR (CURRENT) DRUG THERAPY 03/15/2019 KENYON SNYDER MD, Ot C61 MALIGNANT NEOPLASM OF PROSTATE 03/15/2019 KENYON SNYDER MD, Ot C79.51 SECONDARY MALIGNANT NEOPLASM OF BONE 03/15/2019 KENYON SNYDER MD, Ot Z79.899 OTHER SALES FACILITATOR (CURRENT) DRUG THERAPY 03/15/2019 ISIAH GAMBINO MD, Ot 185 MALIGN NEOPL PROSTATE 03/15/2019 ISIAH GAMBINO MD, Ot V58.0 ENCOUNTER FOR RADIOTHERAPY 03/15/2019 IMMANUEL CAPPS, ISIAH [place] Ot C61 MALIGNANT NEOPLASM OF PROSTATE 03/15/2019 IMMANUEL CAPPS, ISIAH [place] Ot C79.5 1 SECONDARY MALIGNANT NEOPLASM OF BONE 03/15/2019 KEE RN, JET C [employer] Ot C61 MALIGNANT NEOPLASM OF PROSTATE 03/15/2019 KEE RN, JET C [employer] Ot C79.51 SECONDARY MALIGNANT NEOPLASM OF BONE 03/15/2019 SINDY-RAMIN RN, JET C [employer] Ot C61 MALIGNANT NEOPLASM OF PROSTATE 03/15/2019 KEE RN, JET C [employer] Ot C79.51 SECONDARY MALIGNANT NEOPLASM OF BONE 03/15/2019 SINDY-RAMIN RN, JET C [employer] Ot C61 MALIGNANT NEOPLASM OF PROSTATE 03/15/2019 KEE RN, JET C [employer] Ot C79.51 SECONDARY MALIGNANT NEOPLASM OF BONE 03/15/2019 HEATH HAYDEN [employer] Ot C 61 MALIGNANT NEOPLASM OF PROSTATE 03/15/2019 HEATH HAYDEN [employer] Ot C79.51 SECONDARY MALIGNANT NEOPLASM OF BONE 03/15/2019 HEATH HAYDEN [employer] Ot E11.22 TYPE 2 DIABETES MELLITUS W DIABETIC 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 03/15/2019 HEATH HAYDEN [employer] Ot I25.10 ATHSCL HEART DISEASE OF [place] CORONARY 03/15/2019 HEATH HAYDEN [employer] Ot N18.3 CHRONIC KIDNEY DISEASE, STAGE 3 (MODERAT 03/15/2019 HEATH HAYDEN S [employer] Ot Z79.899 OTHER SALES FACILITATOR (CURRENT) DRUG THERAPY 03/15/2019 HEATH HAYDEN [employer] Ot Z87.891 PERSONAL HISTORY OF NICOTINE DEPENDENCE 03/15/2019 HEATH HAYDEN S [employer] Ot Z95.1 PRESENCE OF AORTOCORONARY BYPASS GRAFT 03/15/2019 HEATH HAYDEN S [employer] Ot C 61 MALIGNANT NEOPLASM OF PROSTATE 03/15/2019 HEATH HAYDEN [employer] Ot C79.51 SECONDARY MALIGNANT NEOPLASM OF BONE 03/15/2019 HEATH HAYDEN S [employer] Ot R91.1 SOLITARY PULMONARY NODULE 03/15/2019 HEATH HAYDEN [employer] Ot R93.8 ABNORMAL FINDINGS ON DIAGNOSTIC IMAGING [...] 03/15/2019 KENYON SNYDER MD Ot Z79.899 OTHER SALES FACILITATOR (CURRENT) DRUG THERAPY 03/16/2019 KENYON SNYDER MD Ot C61 MALIGNANT NEOPLASM OF PROSTATE 03/16/2019 KENYON SNYDER MD Ot C79.51 SECONDARY MALIGNANT NEOPLASM OF BONE 03/16/2019 KENYON SNYDER MD Ot Z79.899 OTHER PRISON (CURRENT) DRUG THERAPY 04/11/2019 KENYON SNYDER MD Ot C61 MALIGNANT NEOPLASM OF PROSTATE 04/11/2019 KENYON SNYDER MD Ot C79.51 SECONDARY MALIGNANT NEOPLASM OF BONE 04/11/2019 KENYON SNYDER MD Ot Z79.899 OTHER SALES FACILITATOR (CURRENT) DRUG THERAPY 06/07/2019 KENYON SNYDER MD Ot C61 MALIGNANT NEOPLASM OF PROSTATE 06/07/2019 KENYON SNYDER MD Ot C79.51 SECONDARY MALIGNANT NEOPLASM OF BONE 06/07/2019 KENYON SNYDER MD Ot Z79.899 OTHER PRISON (CURRENT) DRUG THERAPY 06/07/2019 ISIAH GAMBINO MD Ot 185 MALIGN NEOPL PROSTATE 06/07/2019 ISIAH GAMBINO MD Ot V58.0 ENCOUNTER FOR RADIOTHERAPY 06/07/2019 ISIAH GAMBINO MD, Ot C61 MALIGNANT NEOPLASM OF PROSTATE 06/07/2019 GAMBINO MD, ISIAH E Ot C79.5 1 SECONDARY MALIGNANT NEOPLASM OF BONE 06/07/2019 KEE RN, JET C [employer] Ot C61 MALIGNANT NEOPLASM OF PROSTATE 06/07/2019 KEE RN, JET C [employer] Ot C79.51 SECONDARY MALIGNANT NEOPLASM OF BONE 06/07/2019 KEE RN, JET C [employer] Ot C61 MALIGNANT NEOPLASM OF PROSTATE 06/07/2019 KEE RN, JET C [employer] Ot C79.51 SECONDARY MALIGNANT NEOPLASM OF BONE 06/07/2019 KEE RN, JET C [employer] Ot C61 MALIGNANT NEOPLASM OF PROSTATE 06/07/2019 KEE RN, JET C [employer] Ot C79.51 SECONDARY MALIGNANT NEOPLASM OF BONE 06/07/2019 HEATH HAYDEN [employer] Ot C 61 MALIGNANT NEOPLASM OF PROSTATE 06/07/2019 HEATH HAYDENP Ot C79.51 SECONDARY MALIGNANT NEOPLASM OF BONE 06/07/2019 HEATH HAYDENP Ot E11.22 TYPE 2 DIABETES MELLITUS W DIABETIC 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 06/07/2019 HEATH HAYDEN [employer] Ot I25.10 ATHSCL HEART DISEASE OF [place] CORONARY 06/07/2019 HEATH HAYDEN [employer] Ot N18.3 CHRONIC KIDNEY DISEASE, STAGE 3 (MODERAT 06/07/2019 HEATH HAYDEN [employer] Ot Z79.899 OTHER PRISON (CURRENT) DRUG THERAPY 06/07/2019 HEATH HAYDEN [employer] Ot Z87.891 PERSONAL HISTORY OF NICOTINE DEPENDENCE 06/07/2019 HEATH HAYDENP Ot Z95.1 PRESENCE OF AORTOCORONARY BYPASS GRAFT 06/07/2019 HEATH HAYDEN [employer] Ot C 61 MALIGNANT NEOPLASM OF PROSTATE [...] 06/07/2019 KENYON SNYDER MD Ot Z79.899 OTHER SALES FACILITATOR (CURRENT) DRUG THERAPY 06/07/2019 RAMONA ROBERT Ot C61 MALIGNANT NEOPLASM OF PROSTATE 06/07/2019 RAMONA ROBERT Ot C79.51 SECONDARY MALIGNANT NEOPLASM OF BONE 06/12/2019 KENYON SNYDER MD Ot C61 MALIGNANT NEOPLASM OF PROSTATE 06/12/2019 KENYON SNYDER MD Ot C79.51 SECONDARY MALIGNANT NEOPLASM OF BONE 06/12/2019 KENYON SNYDER MD Ot Z79.899 OTHER PRISON (CURRENT) DRUG THERAPY 06/13/2019 KENYON SNYDER MD Ot C61 MALIGNANT NEOPLASM OF PROSTATE 06/13/2019 KENYON SNYDER MD Ot C79.51 SECONDARY MALIGNANT NEOPLASM OF BONE 06/13/2019 KENYON SNYDER MD Ot Z79.899 OTHER SALES FACILITATOR (CURRENT) DRUG THERAPY 06/29/2019 RAMONA ROBERT Ot C61 MALIGNANT NEOPLASM OF PROSTATE 06/29/2019 RAMONA ROBERT Ot C79.51 SECONDARY MALIGNANT NEOPLASM OF BONE 09/17/2019 KENYON SNYDER MD Ot C61 MALIGNANT NEOPLASM OF PROSTATE 09/17/2019 KENYON SNYDER MD Ot C79.51 SECONDARY MALIGNANT NEOPLASM OF BONE 09/17/2019 KENYON SNYDER MD Ot Z79.899 OTHER PRISON (CURRENT) DRUG THERAPY 10/13/2019 KENYON SNYDER MD Ot C61 MALIGNANT NEOPLASM OF PROSTATE 10/13/2019 KENYON SNYDER MD Ot C79.51 SECONDARY MALIGNANT NEOPLASM OF BONE 10/13/2019 KENYON SNYDER MD Ot Z79.899 OTHER PRISON (CURRENT) DRUG THERAPY 11/26/2019 KENYON SNYDER MD Ot C61 MALIGNANT NEOPLASM OF PROSTATE 11/26/2019 KENYON SNYDER MD Ot C79.51 SECONDARY MALIGNANT NEOPLASM OF BONE 11/26/2019 KENYON SNYDER MD Ot Z79.899 OTHER SALES FACILITATOR (CURRENT) DRUG THERAPY 11/27/2019 KENYON SNYDER MD Ot C61 MALIGNANT NEOPLASM OF PROSTATE 11/27/2019 KENYON SNYDER MD Ot C79.51 SECONDARY MALIGNANT NEOPLASM OF BONE 11/27/2019 KENYON SNYDER MD Ot Z79.899 OTHER PRISON (CURRENT) DRUG THERAPY 11/29/2019 ISIAH GAMBINO MD Ot 185 MALIGN NEOPL PROSTATE 11/29/2019 ISIAH GAMBINO MD Ot V58.0 ENCOUNTER FOR RADIOTHERAPY 11/29/2019 ISIAH GAMBINO MD Ot C61 MALIGNANT NEOPLASM OF PROSTATE 11/29/2019 ISIAH GAMBINO MD E Ot C79.5 1 SECONDARY MALIGNANT NEOPLASM OF BONE 11/29/2019 KEE RN, JET C [employer] Ot C61 MALIGNANT NEOPLASM OF PROSTATE 11/29/2019 KEE RN, JET C [employer] Ot C79.51 SECONDARY MALIGNANT NEOPLASM OF BONE 11/29/2019 SINDY-RAMIN RN, JET C [employer] Ot C61 MALIGNANT NEOPLASM OF PROSTATE 11/29/2019 KEE RN, JET C [employer] Ot C79.51 SECONDARY MALIGNANT NEOPLASM OF BONE 11/29/2019 SINDY-RAMIN RN, JET C [employer] Ot C61 MALIGNANT NEOPLASM OF PROSTATE 11/29/2019 KEE RN, JET C [employer] Ot C79.51 SECONDARY MALIGNANT NEOPLASM OF BONE 11/29/2019 HEATH HAYDEN [employer] Ot C 61 MALIGNANT NEOPLASM OF PROSTATE 11/29/2019 HEATH HAYDEN [employer] Ot C79.51 SECONDARY MALIGNANT NEOPLASM OF BONE 11/29/2019 HEATH HAYDEN [employer] Ot E11.22 TYPE 2 DIABETES MELLITUS W DIABETIC 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 11/29/2019 HEATH HAYDEN [employer] Ot I25.10 ATHSCL HEART DISEASE OF [place] CORONARY 11/29/2019 HAYDEN, HILAH S [employer] Ot N18.3 CHRONIC KIDNEY DISEASE, STAGE 3 (MODERAT 11/29/2019 HEATH HAYDEN [employer] Ot Z79.899 OTHER SALES FACILITATOR (CURRENT) DRUG THERAPY 11/29/2019 HEATH HAYDENP Ot Z87.891 PERSONAL HISTORY OF NICOTINE DEPENDENCE 11/29/2019 HEATH HAYDEN [employer] Ot Z95.1 PRESENCE OF AORTOCORONARY BYPASS GRAFT 11/29/2019 HEATH HAYDEN [employer] Ot C 61 MALIGNANT NEOPLASM OF PROSTATE 11/29/2019 HEATH HAYDEN [employer] Ot C79.51 SECONDARY MALIGNANT NEOPLASM OF BONE 11/29/2019 HEATH HAYDEN [employer] Ot R91.1 SOLITARY PULMONARY NODULE 11/29/2019 HEATH HAYDEN [employer] Ot R93.8 ABNORMAL FINDINGS ON DIAGNOSTIC IMAGING [...] OF BONE 11/29/2019 Ot Z79.899 OT HER SALES FACILITATOR (CURRENT) DRUG THERAPY 11/30/2019 KENYON SNYDER MD [...] 12/01/2019 KENYON SNYDER MD Ot Z79.899 OTHER SALES FACILITATOR (CURRENT) DRUG THERAPY 12/27/2019 KENYON SNYDER MD, [...] 06/10/18 14:55 Bacterial urine culture NG NRG Complete blood count (CBC) with automate d white blood cell (WBC) differential - 01/20/20 08:22 Blood leukocytes automated count (number/volume) 17.4 10*3/uL 4.3-11.0 Blood erythrocytes automated count (number/volume) 2.79 10*6/uL 4.35-5.85 Venous blood hemoglobin measurement (mass/volume) 9.2 g/dL 13.3-17.7 Blood hematocrit (volume fraction) 27 % 40-54 Automated erythrocyte mean corpuscular volume 96 [ foz_us] 80-99 Automated erythrocyte mean corpuscular h emoglobin (mass per erythrocyte) 33 pg 25-34 Automated erythrocyte mean corpuscular h emoglobin concentration measurement (mass/volume) 34 g/dL 32-36 Automated erythrocyte distribution width ratio 13. 6 % 10.0- 14.5 Automated blood platelet count (count/volume) 428 10*3/uL 130-400 Automated blood platelet mean volume measurement 9.8 [foz_us] 7.4-10.4 Automated blood neutrophils/100 leukocytes 94 % 42-75 Automated blood lymphocytes/100 leukocytes 2 % 12-44 Blood monocytes/100 leukocytes 5 % 0-12 Automated blood eosinophils/100 leukocytes 0 % 0-10 Automated blood basophils/100 leukocytes 0 % 0-10 Blood neutrophils automated count (number/volume) 16.2 10*3 1.8-7.8 Blood lymphocytes automated count (number/volume) 0.3 10*3 1.0-4.0 Blood monocytes automated count (number/volume) 0. 8 10*3 0.0-1.0 Automated eosinophil count 0.0 10*3/uL 0 .0-0.3 Automated blood basophil count (count/volume) 0.0 10*3/uL 0.0-0.1 Blood lactic acid measurement (moles/vol ume) - 01/20/20 08:22 Blood lactic acid measurement (moles/volume) 1.15 mmol/L 0.50-2.00 Streptococcus pyogenes antigen detection - 01/20/20 08:22 Streptococcus pyogenes antigen detection NEGATIVE NEGATIVE Influenza virus A and B antigen detectio n - 01/20/20 08:22 FLU RESULT NEGATIVE FOR INFLUENZA A AND B ANTIGENS BY IA NRG PT panel in platelet poor plasma by coag ulation assay - 01/20/20 08:22 Prothrombin time (PT) in platelet poor plasma by coagu lation assay 18.9 s 12.2-14.7 INR in platelet poor plasma or blood by coagulation as say 1.5 0.8-1.4 Activated partial thromboplastin time (a PTT) in platelet poor plasma bycoagulation assay - 01/20/20 08:22 Activated partial thromboplastin time (a PTT) in platelet poor plasma bycoagulation assay 59 s 24-35 Fibrin D-dimer FEU measurement in platel et poor plasma (mass/volume) - 01/20/20 08:22 Fibrin D-dimer FEU measurement in platelet poor plasma (mass/volume) 11.83 ug/mL 0.00-0.49 Comprehensive metabolic panel - 01/20/20 08:22 Serum or plasma sodium measurement (moles/volume) 138 mmol/L 135-145 Serum or plasma potassium measurement (moles/volume) 4.8 mmol/L 3.6-5.0 Serum or plasma chloride measurement (moles/volume) 112 mmol/L 98-107 Carbon dioxide 5 mmol/L 21-32 Serum or plasma anion gap determination (moles/volume) 21 mmol/L 5-14 Serum or plasma urea nitrogen measurement (mass/volume ) 153 mg/dL 7-18 Serum or plasma creatinine measurement (mass/volume) 8.23 mg/dL 0.60-1.30 Serum or plasma urea nitrogen/creatinine mass ratio 19 NRG Serum or plasma creatinine measurement w ith calculation of estimated glomerular filtration rate 6 NRG Serum or plasma glucose measurement (mass/volume) 116 mg/dL 70-105 Serum or plasma calcium measurement (mass/volume) 9.1 mg/dL 8.5-10.1 Serum or plasma total bilirubin measurement (mass/volu me) 0.3 mg/dL 0.1-1.0 Serum or plasma alkaline phosphatase annmarie surement (enzymatic activity/volume) 94 U/L 40-136 Serum or plasma aspartate aminotransfera se measurement (enzymatic activity/volume) 30 U/L 5-34 Serum or plasma alanine aminotransferase measurement (enzymatic activity/volume) 20 U/L 0-55 Serum or plasma protein measurement (mass/volume) 7.5 g/dL 6.4-8.2 Serum or plasma albumin measurement (mass/volume) 3.2 g/dL 3.2-4.5 CALCIUM CORRECTED 9.7 mg/dL 8.5-10.1 Liver function panel (serum or plasma al k phos, alb, total and direct bili, total protein, ALT, AST) - 01/20/20 08:22 Bilirubin direct 0.2 mg/dL 0.0-0.3 Serum or plasma indirect bilirubin measurement (mass/v olume) 0.1 mg/dL NRG Magnesium - 01/20/20 08:22 Magnesium 2.6 mg/dL 1.6-2.4 Serum ragweed IgE antibody assay - 01/19 08:22 Serum ragweed IgE antibody assay 237 U/L 125-220 PROCALCITONIN (PCT) - 01/20/20 08:22 PROCALCITONIN (PCT) 16.98 ng/mL <0.10 Manual absolute plasma cell count - 02/04 08:22 Blood monocytes/100 leukocytes 2 % NRG Manual blood segmented neutrophils/100 leukocytes 91 % NRG Blood band neutrophils/100 leukocytes 6 % NRG Manual blood lymphocytes/100 leukocytes 1 % NRG Manual eosinophils/100 leukocytes in nose 0 % NRG Manual blood basophils/100 leukocytes 0 % NRG Blood erythrocyte morphology finding identification NORMAL NRG Serum or plasma troponin i.cardiac measu rement (mass/volume) - 01/20/20 08:22 Serum or plasma troponin i.cardiac measurement (mass/v olume) < ng/mL <0.028 Serum or plasma C reactive protein measu rement (mass/volume) - 01/20/20 08:22 Serum or plasma C reactive protein measurement (mass/v olume) 33.35 mg/dL 0.00-0.50 Serum or plasma lithium measurement (mol es/volume) - 01/20/20 08:22 BNP PT 74.5 pg/mL <100.0 Erythrocyte sedimentation rate by annie gren method - 01/20/20 08:22 Erythrocyte sedimentation rate by westergren method > mm 0- 30 Complete urinalysis with reflex to cultu re - 01/20/20 08:55 Urine color determination BROWN NRG Urine clarity determination TURBID NR G Urine pH measurement by test strip 6.5 5-9 Specific gravity of urine by test strip 1.015 1.016-1.022 Urine protein assay by test strip, semi-quantitative 3+ NEGATIVE Urine glucose detection by automated test strip NE GATIVE NEGATIVE Erythrocytes detection in urine sediment by light micr oscopy 3+ NEGATIVE Urine ketones detection by automated test strip NE GATIVE NEGATIVE Urine nitrite detection by test strip NEGATIVE NEGATIVE Urine total bilirubin detection by test strip NEGA TIVE NEGATIVE Urine urobilinogen measurement by automated test strip (mass/volume) 0.2 mg/dL < = 1.0 Urine leukocyte esterase detection by dipstick 3+ NEGATIVE Automated urine sediment erythrocyte cou nt by microscopy (number/high power field) > [HPF] NRG Automated urine sediment leukocyte count by microscopy (number/high power field) TNTC NRG Bacteria detection in urine sediment by light microsco py LARGE NRG Crystals detection in urine sediment by light microsco py NONE NRG Casts detection in urine sediment by light microscopy NONE NRG Mucus detection in urine sediment by light microscopy NEGATIVE NRG Complete urinalysis with reflex to culture CULTURE PENDING NRG Encounters ACCT No. Visit Date/Time Discharge Status Pt. Type Provider Facility Loc./Unit Complaint [id number] 11/29/2019 10:11:00 23:59:59 CLS Outpatient KENYON SNYDER MD, [facility] RAD CANCER OF PROSTATE,CANC ER METASTATIC TO BONE,CONFU [id number] 11/23/2019 13:20:00 00:01:00 DIS Outpatient KENYON SNYDER MD, [facility] ONC [id number] 06/07/2019 13:31:00 00:01:00 DIS Outpatient KENYON SNYDER MD, [facility] ONC [id number] 06/05/2019 10:40:00 23:59:59 CLS Outpatient RAMONA ROBERT [facility] RAD LUMBAR PAIN [id number] 12/21/2018 12:54:00 00:01:00 DIS Outpatient KENYON SNYDER MD, [facility] ONC [id number] 09/29/2018 15:14:00 00:01:00 DIS Outpatient KENYON SNYDER MD, [facility] ONC [id number] 07/07/2018 13:15:00 13:42:00 DIS Outpatient KENYON SNYDER MD, [facility] ONC [id number] 06/10/2018 14:15:00 018 16:00:00 DIS Emergency JESS MORGAN APRN [facility] ER BACK/ABD PAIN DIZZINESS [id number] 06/09/2018 15:12:00 018 23:59:59 CLS Outpatient KENYON SNYDER MD, [facility] RAD M25.519 [id number] 06/07/2018 08:49:00 13:58:00 DIS Outpatient KENYON SNYDER MD, [facility] ONC [id number] 04/14/2018 13:58:00 00:01:00 DIS Outpatient KENYON SNYDER MD, [facility] ONC [id number] 02/03/2018 09:53:00 23:59:59 CLS Outpatient KENYON SNYDER MD, [facility] RAD CANCER OF PROSTATE [id number] 10/25/2017 13:39:00 018 00:01:00 DIS Outpatient RAMONA ROBERT Lyudmila David [facility] ONC [id number] 05/25/2017 09:28:00 017 00:01:00 DIS Outpatient RAMONA ROBERT [facility] ONC [id number] 02/17/2017 14:40:00 017 00:01:00 DIS Outpatient RAMONA ROBERT Lyudmila [facility] ONC [id number] 11/19/2016 14:47:00 017 00:01:00 DIS Outpatient RAMONA ROBERT Lyudmila David [facility] ONC [id number] 06/24/2016 14:10:00 016 10:21:00 DIS Outpatient RAMONA ROBERT Lyudmila David [facility] ONC [id number] 06/26/2016 11:14:00 016 23:59:59 CLS Outpatient HEATH HAYDENP [facility] RAD ABNORMAL CHEST XR [id number] 05/28/2016 14:02:00 016 23:59:59 CLS Outpatient HEATH HAYDENP [facility] ONC [id number] 03/05/2016 08:36:00 016 00:01:00 DIS Outpatient RAMONA ROBERT [facility] ONC [id number] 12/12/2015 09:16:00 016 23:59:59 CLS Outpatient HEATH HAYDENP [facility] ONC [id number] 09/19/2015 08:39:00 015 23:59:59 CLS Outpatient RAMONA ROBERT [facility] ONC [id number] 08/27/2015 09:16:00 015 23:59:59 CLS Outpatient KEE CARDENAS, JET LAMA [facility] RAD PROSTRATE CA MIRZA NE METS [id number] 08/15/2015 12:49:00 23:59:59 CLS Outpatient KEE CARDENAS, JET LAMA [facility] CARD PROSTATE CA [id number] 08/15/2015 11:18:00 23:59:59 CLS Outpatient JET SWEET RN [facility] ONC [id number] 08/05/2015 08:46:00 23:59:59 CLS Outpatient ISIAH GAMBINO MD [facility] ONC [id number] 12/24/2014 09:12:00 015 00:01:00 DIS Outpatient ISIAH GAMBINO MD [facility] ONC [id number] 10/22/2014 08:24:00 23:59:59 CLS Outpatient ISIAH GAMBINO MD [facility] ONC [id number] 04/04/2013 08:24:00 013 23:59:59 CLS Outpatient ISIAH GAMBINO MD [facility] ONC [id number] 01/20/2020 08:58:00 Document Registration [id number] 11/27/2019 00:00:00 Document Registration [id number] 10/04/2012 08:46:00 Document Registration [id number] 04/11/2012 08:12:00 Document Registration [id number] 10/05/2011 09:13:00 Document Registration [id number] 08/10/2011 15:34:00 Document Registration
--- NOTE | 2020-01-20 11:50 | NUR ---
Report called to Rae RN on 4th floor. Due to patient being a PUI for COVID-19, Rae will call me back after sepaking with repair supervisor.
--- NOTE | 2020-01-20 11:57 | History & Physical-Hospitalist ---
History of Present Illness HPI/Chief Complaint Pedro Luis Armas is an 79-year-old male with past medical history of metastatic prostate cancer on chemotherapy, dementia, who presented with altered mental status. He is unable to provide any history due to his clinical condition. According to his daughter, Debora Dietrich, he was in his normal state of health until very recently. He had a fall at home, but did not hit his head. He began talking less. He is not having any fevers. He is not reporting any other symptoms at home. She reports that he walks with a cane. She says that he is able to take care of himself prompted. He normally is able to recognize his family. He is also able to remember important numbers. We spoke at length about his current clinical situation. He is in severe sepsis from a presumed urinary tract infection and has severe renal failure. We discussed that there is a very poor prognosis even with treatment. She stated, "I don't want him to alone in the hospital". She asked if it would be possible for him to discharge home on hospice. I had a discussion with [facility] and since he is being tested for coronavirus, they are unable to provide this service until Wednesday, because there nurse has not been fitted for an N95 mask. We discussed that we will admit him to the hospital and treat him with IV fluids and antibiotics for now and await his coronavirus test result. Source: family Exam Limitations: clinical condition Date Seen 01/20/20 Time Seen by a Provider: 10:30 Attending Physician Sofia Baker MD PCP Rick Foley DO Referring Physician Date of Admission Jan 20, 2020 at 10:00 Home Medications & Allergies Home Medications Reviewed patient Home Medication Reconciliation performed by pharmacy medication reconciliations field service technician poultry and/or nursing. Patients Allergies have been reviewed. Allergies Allergies Coded Allergies No Known Drug Allergies (Pbhrkwfyit42/5/15) Past Dbmfjzw-Uukcue-Sggfhh Hx Past Med/Social Hx: Reviewed Nursing Past Med/Soc Hx Patient Social History Alcohol Use: Denies Use Recreational Drug Use: No Smoking Status: Former Smoker (QUIT 1987) Type Used: Cigarettes 2nd Hand Smoke Exposure: No Recent Foreign Travel: No Contact w/other who traveled: No Recent Hopitalizations: No Recent Infectious Disease Expo: No Seasonal Allergies Seasonal Allergies: No Past Medical History Surgeries: Cardiac, CABG Cardiac: Chronic Edema/Swelling, Coronary Artery Disease Neurological: Dementia Genitourinary: Kidney Stones, Renal Failure Gastrointestinal: Diverticulosis, Gall Bladder Disease Cancer: Prostate Did You Recieve Any Treatments: Yes What Type of Treatment Did You: Chemotherapy, Radiation Review of Systems Constitutional: see HPI Physical Exam Physical Exam Vital Signs Vital Signs - First Documented 01/20/20 01/20/20 08:09 08:10 Temp 37.8 Pulse 141 Resp 30 B/P (MAP) 106/96 (99) Pulse Ox 98 O2 Delivery Room Air O2 Flow Rate 2.00 Capillary Refill : Less Than 3 Seconds Height, Weight, BMI Height: 5'10.00" Weight: 214lbs. 0oz. 97.920147kx; 28.00 BMI Method:Stated General Appearance: No Apparent Distress, Chronically ill HEENT: PERRL/EOMI, Other (dry mucous membranes) Neck: Normal Inspection, Supple Respiratory: Decreased Breath Sounds, Other (tachypnea) Cardiovascular: No Murmur, Tachycardia (regular rhythm) Gastrointestinal: Normal Bowel Sounds, Soft, Tenderness (diffusely) Extremity: Normal Inspection, Pedal Edema Neurologic/Psychiatric: Disoriented, Other (lethargic, responding only to pain, GCS 10) Skin: Normal Color, Cool Results Results/Procedures Labs Laboratory Tests 01/20/20 08:22 Patient resulted labs reviewed. Imaging: Reviewed Imaging Films, Reviewed Imaging Report Assessment/Plan Admission Diagnosis Severe sepsis Admission Status: Inpatient Order (span 2 midnights) Reason for Inpatient Admission: severe sepsis with acute renal failure Assessment and Plan Severe sepsis Urinary tract infection Acute kidney injury superimposed on chronic kidney disease Septic encephalopathy SIRS+: WBC 17.4, HR 141, RR 30 UA consistent with urinary tract infection Chest x-ray with bibasilar opacities with possibility of developing consolidation blood cultures obtained Started on vancomycin, cefepime, and azithromycin BUN 153, creatinine 8, up from baseline BUN 50 and creatinine 3 started on IV fluids, continue Poor prognosis Alzheimer's dementia Metastatic prostate cancer to the bones Follows with Dr. Forrester Discussed case with Dr. Jimenez who is on-call family considering home hospice discharge DO NOT RESUSCITATE/DO NOT INTUBATE No dialysis DVT prophylaxis: Heparin Diagnosis/Problems Diagnosis/Problems (1) Severe sepsis Status: Acute (2) UTI (urinary tract infection) Status: Acute (3) Acute kidney injury superimposed on chronic kidney disease Status: Acute (4) Prostate cancer metastatic to bone Status: Chronic (5) Dementia Status: Chronic SOFIA BAKER MD Jan 20, 2020 11:57
--- NOTE | 2020-01-20 12:00 | NUR ---
Patient's oxygen saturation is 87% on 2 LPM via NC. Increased to 4 LPM but oxygen saturation did not rise. Patient changed to oxy-mask at 10 LPM and oxygen saturation rises to 98%.
[2020-01-20] MEDS ORDERED: LACTATED RINGERS 1,000 ML IV SCH (12:30)
--- NOTE | 2020-01-20 12:50 | NUR ---
CAMILO GARCIA admitted to room 410-1, with an admitting diagnosis of uti, sepsis, on 01/20/20 from ED via stretcher, accompanied by staff. CAMILO GARCIA introduced to surroundings, call light, bed controls, phone, TV, temperature control, lights, meal times, smoking policy, visitor policy, side rail policy, bathrooms and showers. Patient Rights given to patient in the handbook. CAMILO GARCIA verbalizes understanding that [facility] is not responsible for the loss or damage to any personal effects or valuables that are kept in the patients posession during their hospitalization. The following Patient Care Plans were discussed with the patient: Discharge Planning, pain management, medications, and dehydration. CAMILO GARCIA verbalizes understanding of Interdisciplinary Patient Education. Patient and/or family were informed about the Rapid Response Team and its purpose.
[2020-01-20 13:00] VITALS: BP 124/76
[2020-01-20] MEDS ORDERED: fentaNYL INJECTION 100 MCG/2 ML AMP IV PRN (13:30)
[2020-01-20] MEDS ORDERED: ACETAMINOPHEN 650 MG SUPP (TYLENOL) PR PRN (13:30)
[2020-01-20] MEDS ORDERED: RT-ALBUTEROL/IPRATROPIUM 3 ML (DUONEB) VIAL IH SCH (14:00)
--- NOTE | 2020-01-20 14:00 | NUR ---
Talk with patient daughter Debora about patient condition and family wishes. Notified Dr. Mejia that family would like for patient to be home on hospice or just at home with family. Family does not want patient to in hospital, wants patient at home with family. Notified supervisor international reservations and of family wishes.
[2020-01-20 16:02] VITALS: BP 124/76
--- NOTE | 2020-01-20 16:30 | NUR ---
Family called and requested that patient be home with family and has talked with friends who work in hospice and has support at home for patient. Call placed to Dr. Mejia to see if we could send patient home with comfort meds and hospice to follow up with patient at home.
[2020-01-20] MEDS ORDERED: LORA2ORA PO (17:11)
[2020-01-20] MEDS ORDERED: MORP100S3 PO (17:11)
--- NOTE | 2020-01-20 18:00 | NUR ---
Patient paperwork faxed to [facility].
--- NOTE | 2020-01-20 18:20 | NUR ---
Patient taken to ED exit to family vehicle staff x2 assisted patient into vehicle. Scripts given to family, and paperwork given to daughter. Daughter Debora verbalized understanding at this time. Hospice to follow up with patient and family.
[2020-01-20] MEDS ORDERED: ALBUTEROL/IPRATROP (COMBIVENT RESPIMAT) 4 GM INHALER IH SCH (20:00)
--- NOTE | 2020-01-23 14:54 | Physician Query-Final Dx ---
Final Diagnosis Give Final Diagnosis Please give Final Diagnosis MELISSA BARRAZA Jan 23, 2020 14:54
== END 2020-01-20 18:20 | disposition hospice, home (50) | DRG 871 ==
LOC: EDUNIT# 08:09 → ER 08:09 → 4TH 10:00
PROVIDERS: ADMIT Internal Medicine; ATTEND Internal Medicine
DX: A41.9 Sepsis, unspecified organism (principal); R65.20 Severe sepsis without septic shock; N39.0 Urinary tract infection, site not specified; G93.41 Metabolic encephalopathy; J18.9 Pneumonia, unspecified organism; N17.9 Acute kidney failure, unspecified; C79.51 Secondary malignant neoplasm of bone; C61 Malignant neoplasm of prostate; Z66 Do not resuscitate; G30.9 Alzheimer's disease, unspecified; F02.80 Dementia in other diseases classified elsewhere, unspecified severity, without behavioral disturbance, psychotic disturbance, mood disturbance, and anxiety; E86.0 Dehydration; N18.9 Chronic kidney disease, unspecified; I25.10 Atherosclerotic heart disease of native coronary artery without angina pectoris; Z95.1 Presence of aortocoronary bypass graft; Z87.891 Personal history of nicotine dependence
CPT/HCPCS: 36415; 51702; 71045; 80053; 80076; 81000; 82728; 83605; 83615; 83735; 83880; 84145; 84484; 85007; 85027; 85379; 85610; 85652; 85730; 86141; 87040; 87077; 87088; 87186; 87430; 87635; 87804; 93005; 94640